=== PATIENT | male | born 1960 ===

== ENCOUNTER → 2020-08-02 07:48 | Outpatient (BNV) | payer MEDICAID, SELFPAY | PROVIDERS: PCP Internal Medicine Geriatric Medicine; Visit Provider Internal Medicine | DX: D64.9 Anemia, unspecified (principal) | CPT/HCPCS: 99213 ==

== ENCOUNTER 2020-11-07 08:31 | Outpatient (REF) | payer MEDICAID, SELFPAY ==
[2020-11-07 10:06] LABS: Alanine Aminotransferase 32 U/L (0-40); Aspartate Amino Transferase 17 U/L (5-37)
== END 2020-11-07 08:32 | disposition home or self-care (01) ==
LOC: HO.LAB 08:31
PROVIDERS: PCP Internal Medicine Geriatric Medicine; Visit Provider Internal Medicine Cardiovascular Disease
DX: E78.49 Other hyperlipidemia (principal)
CPT/HCPCS: 36415; 84450; 84460

== ENCOUNTER 2021-01-27 07:41 | Emergency (ER) | payer MEDICAID, SELFPAY ==
--- NOTE | ~2021-01-27 | XR_ITS ---
EXAMINATION: RIGHT KNEE 3 VIEWS CLINICAL INFORMATION: Right knee pain. COMPARISON: None. TECHNIQUE: AP, lateral, oblique views of the right knee were obtained. FINDINGS: There are no fractures or dislocations. There is no knee joint effusion. There is mild narrowing to the patellofemoral compartment. There is no significant soft tissue swelling. There are diffuse vascular calcifications. XR/XR knee RT 4V IMPRESSION: No acute injury. Mild narrowing to the patellofemoral compartment. Diffuse vascular calcifications.
[2021-01-27 08:51] VITALS: BP 139/90; PULSE 71; RESP 18; TEMP 36.7; O2SAT 97; BMI 31.2
--- NOTE | 2021-01-27 09:03 | ED_ITS ---
HPI - Extremity Injury (Lower) General Chief Complaint: Extremity Injury, Lower Stated Complaint: R KNEE PAIN Time Seen by Provider: 01/27/21 09:02 Source: patient Mode of arrival: ambulatory Limitations: no limitations History of Present Illness HPI Narrative: 61 yo male here with right knee pain for the last month the pain has been increasing with no new injury or trauma. He previously had injury with skiing and when she twisted the knee. He feels like at times the knee gives out on him. It is worsened with stairs and weight-bearing. Using his knee brace with continued symptoms. No fevers, chills, erythema, warmth. No calf pain or swelling. Related Data Home Medications Medication Instructions Recorded Confirmed amlodipine 5 mg PO DAILY 08/02/20 08/02/20 aspirin 81 mg PO DAILY 08/02/20 08/02/20 atorvastatin 80 mg PO BEDTIME 08/02/20 08/02/20 cilostazol [Pletal] 50 mg PO BID 08/02/20 08/02/20 losartan 100 mg PO DAILY 08/02/20 08/02/20 Allergies Allergy/AdvReac Type Severity Reaction Status Date / Time No Known Allergies Allergy Verified 01/27/21 08:53 [No Known Allergies*] Review of Systems Review of Systems: Yes all other systems are reviewed and are negative Constitutional: Constitutional: Reports no additional constitutional complaints, Denies body ache(s), Denies chills, Denies fever(s), Denies headache(s) and Denies weakness Eyes: Eyes: Reports no additional eye complaints and Denies change in vision ENT: Reports system reviewed and no additional complaints, except as documented, Denies dizziness, Denies headache(s), Denies nasal congestion, Denies nasal discharge and Denies neck pain Cardiovascular: Cardiovascular: Reports no additional cardiovascular complaints, Denies chest pain, Denies leg edema and Denies dyspnea Respiratory: Respiratory: Reports no additional respiratory complaints, Denies cough and Denies dyspnea Gastrointestinal: Gastrointestinal: Reports no additional gastrointestinal complaints, Denies abdominal pain, Denies diarrhea, Denies nausea and Denies vomiting Genitourinary: Genitourinary: Denies urinary incontinence Musculoskeletal: Musculoskeletal: Reports no additional musculoskeletal complaints, Denies back pain, Reports arthralgias, Denies joint swelling, Denies neck pain, Denies numbness and Denies tingling Integumentary/Breasts: Skin/Breast: Reports system reviewed and no additional complaints, except as docu and Denies rash Neurologic: Reports system reviewed and no additional complaints, except as documented, Denies Abnormal speech present, Denies dizziness, Denies headache(s), Denies numbness, Denies tingling and Denies weakness PMF Past Medical History Attestation statement: The following information was validated with the patient. Source: old records reviewed and nursing notes reviewed Medical History AAA (abdominal aortic aneurysm) Anemia Cerebral aneurysm Essential hypertension Hyperlipidemia 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) Tubulovillous adenoma Family History Family History Maternal Grandmother Cancer Father Bladder cancer Social History Social History Alcohol intake: current Alcohol intake frequency: a few times a month Smoking Status: Former smoker Tobacco Type: Cigar and Cigarette Years Smoked: 20 Physical Exam Vital Signs: Vital Signs: Last Vital Signs Temp 98.0 F 01/27/21 08:51 Pulse 71 01/27/21 08:51 Resp 18 01/27/21 08:51 BP 139/90 H 01/27/21 08:51 Pulse Ox 97 01/27/21 08:51 Body Mass Index 31.2 Const: General: cooperative, healthy appearing, comfortable and no acute distress Orientation/consciousness: patient oriented x3 Limitations: no limitations HENMT: Head: Yes normal to inspection Ears: hearing grossly normal bilaterally General nose exam: Normal external nose present Face and sinus: Yes normal facial exam Mouth: Normal oral and palatal mucosa present Throat: Yes posterior oropharynx normal Eyes: General: appearance normal, both eyes and all related structures Pupils: Equal, round and reactive pupils present Neck: Neck: Yes normal visual inspection Chest: Chest palpation & inspection: normal inspection of the chest Resp: Effort & Inspection: normal respiratory effort Auscultation: clear to auscultation bilaterally Cardio: Rate: regular rate Rhythm: regular rhythm Peripheral pulses: Peripheral pulses 2+ throughout GI: Inspection: Yes normal to inspection Palpation (GI): Soft to palpation and nontender Auscultation: normal bowel sounds Back/Spine/Pelvis: Thoracic/Lumbar Spine: thoracic and lumbar spine normal to inspection Skin: General skin exam: no rashes or lesions noted Neuro: General: patient oriented x3, no focal motor deficits and normal sensation to monofilament Cranial nerves: Yes Equal, round and reactive pupils present Cognition (Neuro): normal cognition Speech: No Abnormal speech present Gait exam (Neuro): Normal gait present Motor exam (neuro): 5/5 motor strength present throughout Extrem: Other: Tenderness over the medial joint line and medial ligament of the right knee. There is no swelling, deformity. There is no redness or warmth. There is some ligamental laxity noted on exam. General: Yes normal to inspection, Yes no pedal edema and Yes no calf tenderness Course Course Course Narrative: Right knee pain for 1 month in the setting of a previous twisting injury. On exam has tenderness over the medial ligament joint line with some laxity. Likely ligamental injury. Doing supportive care with continued symptoms. At this point will refer to orthopedics for further eval uation. x-ray shows no bony abnormality. Reviewed worrisome signs and symptoms and when to return to the emergency department. Comfortable discharge home. MDM - Extremity Injury (Lower) Medical Records Attestation: I reviewed the patient's medical records. Lab Data Attestation: I reviewed the patient's lab results. Imaging Data knee x-ray right : Attestation: I personally reviewed and interpreted this imaging study as follows: Radiologist's impression: EXAMINATION: RIGHT KNEE 3 VIEWS CLINICAL INFORMATION: Right knee pain. COMPARISON: None. TECHNIQUE: AP, lateral, oblique views of the right knee were obtained. FINDINGS: There are no fractures or dislocations. There is no knee joint effusion. There is mild narrowing to the patellofemoral compartment. There is no significant soft tissue swelling. There are diffuse vascular calcifications. XR/XR knee RT 4V IMPRESSION: No acute injury. Mild narrowing to the patellofemoral compartment. Diffuse vascular calcifications. Discharge Plan Discharge Clinical Impression: Knee pain, right Qualifiers: Chronicity: acute Qualified Code(s): M25.561 - Pain in right knee Patient Disposition: Home, Self-Care Instructions: Knee Pain (ED) Additional Instructions: Ice, rest, elevation as discussed You have some laxity along the medial joint line as well as tenderness, you likely have a sprain of the medial ligament Prescriptions: No Action atorvastatin 80 mg Tablet 80 mg PO BEDTIME RF: 0 cilostazol [Pletal] 50 mg Tablet 50 mg PO BID RF: 0 amlodipine 5 mg Tablet 5 mg PO DAILY RF: 0 aspirin 81 mg Tablet 81 mg PO DAILY RF: 0 losartan 100 mg Tablet 100 mg PO DAILY RF: 0 Referrals: Ashok Hearn MD [Physician] - 2 days Interventions: ED Discharge Assessment Last Done: 01/27/21 09:34 Discharge Date/Time: 01/27/21 09:34
== END 2021-01-27 09:34 | disposition home or self-care (01) ==
PROVIDERS: Emergency Provider Emergency Medicine; PCP Internal Medicine Geriatric Medicine
DX: M25.561 Pain in right knee (principal); E78.5 Hyperlipidemia, unspecified; I10 Essential (primary) hypertension; Z79.899 Other long term (current) drug therapy; Z79.02 Long term (current) use of antithrombotics/antiplatelets
CPT/HCPCS: 73564; 99283

== ENCOUNTER 2021-01-30 07:34 | Outpatient (REF) | payer MEDICAID, SELFPAY ==
--- NOTE | ~2021-01-30 | XR_ITS ---
EXAMINATION: XR KNEE, BILATERAL XR KNEE, RIGHT CLINICAL INFORMATION: Pain. COMPARISON: 01/27/2021 TECHNIQUE: AP bilateral knees one view. Right knee 2 views. FINDINGS: RIGHT KNEE: Mild medial compartment joint space narrowing. Mild narrowing of the patellofemoral compartment with marginal osteophytes. No fracture or dislocation. No effusion. 0.7 cm loose body posteriorly. Extensive vascular calcification. LEFT KNEE: Mild medial compartment arthritis. Marginal spurring in the lateral compartment. Extensive vascular calcification. XR/XR knee standing BI IMPRESSION: RIGHT KNEE: No acute findings. Mild medial and patellofemoral compartment arthritis. Small loose body. LEFT KNEE: Mild arthritis as above.
--- NOTE | ~2021-01-30 | XR_ITS ---
EXAMINATION: XR KNEE, BILATERAL XR KNEE, RIGHT CLINICAL INFORMATION: Pain. COMPARISON: 01/27/2021 TECHNIQUE: AP bilateral knees one view. Right knee 2 views. FINDINGS: RIGHT KNEE: Mild medial compartment joint space narrowing. Mild narrowing of the patellofemoral compartment with marginal osteophytes. No fracture or dislocation. No effusion. 0.7 cm loose body posteriorly. Extensive vascular calcification. LEFT KNEE: Mild medial compartment arthritis. Marginal spurring in the lateral compartment. Extensive vascular calcification. XR/XR knee RT 2V IMPRESSION: RIGHT KNEE: No acute findings. Mild medial and patellofemoral compartment arthritis. Small loose body. LEFT KNEE: Mild arthritis as above.
== END 2021-01-30 07:35 | disposition home or self-care (01) ==
LOC: HO.HOSX 07:34
PROVIDERS: Visit Provider Physician Assistant
DX: M25.562 Pain in left knee (principal); M17.11 Unilateral primary osteoarthritis, right knee; Z87.891 Personal history of nicotine dependence
CPT/HCPCS: 73560; 73565; 99202

== ENCOUNTER → 2021-11-09 09:12 | Outpatient (BNVA) | payer MEDICAID, SELFPAY | PROVIDERS: PCP Internal Medicine Geriatric Medicine; Referring Provider Internal Medicine Geriatric Medicine; Visit Provider Nurse Practitioner | DX: D12.6 Benign neoplasm of colon, unspecified (principal) | CPT/HCPCS: 99202 ==

== ENCOUNTER 2022-02-15 08:08 | Day surgery (SDC) | payer MEDICAID, SELFPAY ==
[2022-02-09 09:33] VITALS: BMI 34.7
--- NOTE | 2022-02-14 10:24 | P.CONAN_ITS ---
Documented by User: Donya Perez NP 02/14/22 10:29 HPI - Anesthesia Eval Consult details Narrative: 62yo M for Colonoscopy PMFSH Active Problems Active Problems: All Active Problems (Updated 11/09/21 @ 11:43 by ANNA Sanchez) Raynauds disease (Acute) Peripheral vascular disease (Acute) Carotid stenosis, right (Acute) Tubulovillous adenoma of colon (Acute) Thoracic aortic aneurysm (Acute) Normocytic anemia (Chronic) Osteoarthritis of right knee (Acute) Past Medical History Medical History AAA (abdominal aortic aneurysm) Anemia Carotid stenosis, right Cerebral aneurysm Essential hypertension History of pyloric stenosis as a child Hyperlipidemia 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) Peripheral vascular disease Raynauds disease Tubulovillous adenoma Family History Family History Maternal Grandmother Cancer Father Bladder cancer Surgical History Surgical History History of colonoscopy Hx of abdominal surgery Social History Social History Household Members: Family [facility] Alcohol intake: current Alcohol intake frequency: a few times a month Patient Tobacco Use Status: Former Tobacco user Quit Date: 1999 Tobacco use type: Cigarette Cigarette Packs Per Day: 1 Years Smoked: 20 Use of substances other than those prescribed or required for medical reasons: No Advance Directives: No Advance Directives Information Provided: Yes Current occupational status: retired Current occupation: [employer] Allergies Allergy/AdvReac Type Severity Reaction Status Date / Time No Known Allergies Allergy Verified 11/09/21 09:23 [No Known Allergies*] Home Medications Medication Instructions Recorded Confirmed Last Taken Type amlodipine 5 mg tablet 5 mg PO DAILY 08/02/20 10/24/21 02/15/22 History 5 mg aspirin 81 mg tablet 81 mg PO DAILY 08/02/20 10/24/21 Unknown History atorvastatin 80 mg tablet 80 mg PO BEDTIME 08/02/20 10/24/21 Unknown History cilostazol 50 mg tablet 50 mg PO BID 08/02/20 10/24/21 Unknown History ascorbic acid (vitamin C) 500 mg 500 mg PO DAILY 08/02/21 10/24/21 Unknown History tablet (Vitamin C) coenzyme [id number] E 100 mg-100 1 cap PO DAILY 08/02/21 10/24/21 Unknown History unit capsule tamsulosin 0.4 mg capsule 0.4 mg PO DAILY 11/09/21 Unknown History valsartan 80 mg tablet 80 mg PO DAILY 11/09/21 Unknown History Exam Exam Date and Time: February 14, 2022 1024 Height,Weight and Vital Signs: Height 6 ft 3 in Weight 126.099 kg Pertinent Lab Results Pertinent Lab Results: Laboratory Tests 10/24/21 15:01 WBC 5.4 Hgb 12.2 L Hct 36.7 L Plt Count 239 Assessment and Plan Assessment Anesthesia Assessment: Chart Reviewed Documented by User: Mario Cervantes MD 02/15/22 10:50 [facility] Past Medical History Medical History AAA (abdominal aortic aneurysm) Anemia Carotid stenosis, right Cerebral aneurysm Essential hypertension History of pyloric stenosis as a child Hyperlipidemia 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) Peripheral vascular disease Raynauds disease Tubulovillous adenoma Family History Family History Maternal Grandmother Cancer Father Bladder cancer Family history of problems with anesthesia: No Surgical History Surgical History History of colonoscopy Hx of abdominal surgery History of Problems with Anesthesia: No Social History Social History Household Members: Family [facility] Alcohol intake: current Alcohol intake frequency: a few times a month Patient Tobacco Use Status: Former Tobacco user Quit Date: 1999 Tobacco use type: Cigarette Cigarette Packs Per Day: 1 Years Smoked: 20 Use of substances other than those prescribed or required for medical reasons: No Advance Directives: No Advance Directives Information Provided: Yes Current occupational status: retired Current occupation: [employer] Allergies Allergy/AdvReac Type Severity Reaction Status Date / Time No Known Allergies Allergy Verified 11/09/21 09:23 [No Known Allergies*] Home Medications Medication Instructions Recorded Confirmed Last Taken Type amlodipine 5 mg tablet 5 mg PO DAILY 08/02/20 10/24/21 02/15/22 History 5 mg aspirin 81 mg tablet 81 mg PO DAILY 08/02/20 10/24/21 Unknown History atorvastatin 80 mg tablet 80 mg PO BEDTIME 08/02/20 10/24/21 Unknown History cilostazol 50 mg tablet 50 mg PO BID 08/02/20 10/24/21 Unknown History ascorbic acid (vitamin C) 500 mg 500 mg PO DAILY 08/02/21 10/24/21 Unknown History tablet (Vitamin C) coenzyme [id number] E 100 mg-100 1 cap PO DAILY 08/02/21 10/24/21 Unknown History unit capsule tamsulosin 0.4 mg capsule 0.4 mg PO DAILY 11/09/21 Unknown History valsartan 80 mg tablet 80 mg PO DAILY 11/09/21 Unknown History Exam Airway Mallampati Class: II TM Dist: >3cm Neck ROM: Full Loose/Missing/Broken Teeth: Yes Assessment and Plan Assessment Anesthesia Assessment: Anesthesia Plan Discussed Final Anesthetic Review Family History of Problems with Anesthesia: No History of Problems with Anesthesia: No NPO: Yes ASA Class: III Final Preanesthetic Review: No Changes in Pt Med Stat, Meds/Allgs Chart Reviewed, Consent Obtained/Reviewed and Anes Risks/Benef Reviewed Patient Risk: Intermediate Procedure Risk: Low Anesthetic Plan Anesthetic Plan: MAC: Disposition: Standard PACU
[2022-02-15 08:19] VITALS: BP 119/80; PULSE 79; RESP 18; TEMP 36.6; O2SAT 96; BMI 34.9
[2022-02-15] MEDS: Lactated Ringers 1,000 ML 100 ML IVCONT (08:38)
--- NOTE | 2022-02-15 09:03 | MHC.SHP ---
Pre-Procedural Eval Section A Date of Service: 02/15/22 Section B Chief Complaint: Benign neoplasm of colon Details of Present Illness: hx of polyp Relevant Family History (Specify if Yes): No Relevant Social History: None (ex smoker) Present Medications: see Short Stay Collaborative assessment Medical History: Significant History (AAA (abdominal aortic aneurysm) Anemia Carotid stenosis, right Cerebral aneurysm Essential hypertension History of pyloric stenosis as a child Hyperlipidemia 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) Peripheral vascular disease Raynauds disease Tubulovillous adenoma) History of Previous Operations: Relevant previous surgery/procedure and date(s) (History of colonoscopy Hx of abdominal surgery) Allergies: Allergies Allergy/AdvReac Type Severity Reaction Status Date / Time No Known Allergies Allergy Verified 11/09/21 09:23 [No Known Allergies*] Review of Systems Sugical H&P ROS: Negative: Constitution, Cardiovascular, Respiratory, Neurological, Psychiatric, Hem-Onc, Allergic/Immunologic, Gastrointestinal, Genitourinary, Musculoskeletal, Integumentary, Endocrine and Eyes/Ears/Nose/Throat Exam Surgical H&P Exam: Normal: HEENT, Normal: Heart, Normal: Lungs, Normal: Extremities, Normal: Abdomen, Normal: Skin and Normal: Neurological Plan Diagnosis/Plan: Unchanged I have reviewed the history and physical and performed a pertinent physical examination on my patient. No changes have occurred unless specified.
--- NOTE | 2022-02-15 09:47 | P.OP_ITS ---
Operative Note Operative Note Date of Service: 02/15/22 Narrative: Operative Information Procedure Description: Colonoscopy Indication: hx of polyp, colon screening Anesthesia: MAC COLONOSCOPY Instrument: Olympus variable stiffness adult scope 190L Colonoscopy Monitoring: Vital signs and clinical assessment, continuous EKG monitoring, Pulse oximetry, Carbon Dioxide monitoring and blood pressure monitoring were done throughout the procedure. Colon withdrawal time was 20 minutes. Procedure: The patient was placed in the left lateral decubitis position and pre-procedure medications were administered. After a digital rectal examination of the ano-rectum, the video colonoscope was inserted into the rectum and advanced through the colon to the cecum/TI. The colonoscope was slowly withdrawn in a retrograde panoramic fashion and the colon mucosa was carefully examined including a retroflexed view of the rectum. Findings and interventions are described below. Procedure Difficulty: easy Findings: Terminal Ileum-normal Cecum:normal Ascending Colon: 15 mm laterally spreading granular polpyoid lesion (Juil 0- IIa) noted, injected with ORISE and then removed with hot snare with 3 clips applied to close defect. Polyp retrieved with net. Transverse Colon -normal Descending Colon:normal Sigmoid Colon: normal Rectum: Retroflexion with small internal hemorrhoids, grade I Anorectum - normal Colon preparation: [place] Bowel Preparation Scale Right colon; 2 Transverse colon: 2 Left colon; 2 (0 = Unprepared colon segment with mucosa not seen due to solid stool that cannot be cleared. 1 = Portion of mucosa of the colon segment seen, but other areas of the colon segment not well seen due to staining, residual stool and/or opaque liquid. 2 = Minor amount of residual staining, small fragments of stool and/or opaque liquid, but mucosa of colon segment seen well. 3 = Entire mucosa of colon segment seen well with no residual staining, small fragments of stool or opaque liquid) Impression and Post Procedure Diagnosis: polyp internal hemorrhoids Plan: High fiber diet leaflet Avoid straining at stool, epsom salts and sitz bath, anusol supps or cream Repeat Colonoscopy in 2-3 years or earlier if clinically indicated Above findings were reviewed with the patient and relevant handouts were provided if indicated.
--- NOTE | 2022-02-15 09:47 | PM.OP ---
Brief Operative Note Date of Service: 02/15/22 Post-op diagnosis: same Procedure: see op note Surgeon: Ning Xiao MD Anesthesia: MAC Was an Mobile Crane Operator used for this Procedure?: No Estimated blood loss (mL): 0 Condition: stable Disposition: PACU
[2022-02-15 10:33] VITALS: BP 97/49; PULSE 79; RESP 16; TEMP 36.6; O2SAT 90
[2022-02-15 10:48] VITALS: BP 103/74; PULSE 70; RESP 16; TEMP 36.3; O2SAT 95
== END 2022-02-15 11:19 | disposition home or self-care (01) ==
PROVIDERS: PCP Internal Medicine Geriatric Medicine; Visit Provider Internal Medicine Gastroenterology
PROC: 0DJD8ZZ Inspection of Lower Intestinal Tract, Via Natural or Artificial Opening Endoscopic (ICD-10-PCS; CPT 45378; principal; 2022-02-15 09:30)
DX: Z12.11 Encounter for screening for malignant neoplasm of colon (principal); Z86.010 Personal history of colon polyps; D12.2 Benign neoplasm of ascending colon; K64.0 First degree hemorrhoids; I71.2 Thoracic aortic aneurysm, without rupture; I65.21 Occlusion and stenosis of right carotid artery; I10 Essential (primary) hypertension; I73.00 Raynaud's syndrome without gangrene; E78.00 Pure hypercholesterolemia, unspecified; Z87.891 Personal history of nicotine dependence; Z86.73 Personal history of transient ischemic attack (TIA), and cerebral infarction without residual deficits
CPT/HCPCS: 45385; 45381; 88305; J2250

== ENCOUNTER → 2022-03-01 08:48 | Outpatient (BNVA) | payer MEDICAID, SELFPAY | PROVIDERS: PCP Internal Medicine Geriatric Medicine; Referring Provider Internal Medicine Geriatric Medicine; Visit Provider Nurse Practitioner | DX: Z13.89 Encounter for screening for other disorder (principal) ==

== ENCOUNTER 2023-01-23 13:08 | Outpatient (REF) | payer MEDICAID, SELFPAY ==
[2023-01-17 08:09] VITALS: BP 108/70; BP 112/76; BP 118/70; BMI 34.0
[2023-01-23 15:03] LABS: Blood Urea Nitrogen 14 mg/dL (9-16); Estimated Glomerular Filt Rate > 60
== END 2023-01-23 13:09 | disposition home or self-care (01) ==
LOC: HO.LAB 13:08
PROVIDERS: PCP Internal Medicine Geriatric Medicine; Visit Provider Psychiatry & Neurology Neurology
DX: I63.9 Cerebral infarction, unspecified (principal)
CPT/HCPCS: 36415; 82565; 84520

== ENCOUNTER 2023-03-20 07:32 | Outpatient (REF) | payer MEDICAID, SELFPAY ==
[2023-01-17 08:09] VITALS: BP 108/70; BP 112/76; BP 118/70; BMI 34.0
--- NOTE | ~2023-03-20 | CT_ITS ---
EXAMINATION: CT ANGIOGRAM BRAIN WITH CONTRAST CLINICAL INFORMATION: Cerebral aneurysm. COMPARISON: Head CTA 03/19/2020. TECHNIQUE: Test bolus sequences followed by intravenous administration 75 mL of Omnipaque 350. Helical imaging was performed in the axial plane from the skull base to the skull vertex. Delayed postcontrast imaging of the head was also performed. The data was processed at the radiographic technologist workstation for generation of MIP sequences. Angled MIPs and volume rendered reformatted images were also generated at an offline 3D workstation. This CT examination was performed using dose optimization techniques as appropriate, variously including the following: *Automated exposure control *Adjustment of mA and/or kV according to patient size (this includes techniques or standardized protocols for targeted exams where dose is matched to indication/reason for exam; i.e. extremities or head) *Use of iterative reconstruction technique DLP: 2582 mGy-cm FINDINGS: Brain: There is a large area of chronic infarction within the right parietal and temporal lobes, also seen previously. There is a small chronic lacunar infarct within the right basal ganglia. There is a small chronic lacunar infarct within the right cerebellum, new from prior. A chronic lacunar infarcts in the left inferior cerebellum is again demonstrated. There is no mass effect or extra-axial collection. No abnormal enhancement is seen. The dural venous sinuses appear normally opacified. The extracranial structures are within normal limits. Head CTA: There is redemonstration of chronic occlusion of the right internal carotid artery in the neck but with reconstitution at the carotid siphon. There is a 2 mm medially projecting aneurysm from the communicating segment of the left internal carotid artery without change compared with 2019. Atheromatous changes are noted at both carotid siphons resulting in moderate stenosis in the left without change. The anterior and posterior circulations appear patent without new or progressive stenosis. No new aneurysm is seen. CT/CT angio head IMPRESSION: 1. No acute intracranial abnormality. Chronic infarct in the right parietal and temporal lobes. Chronic lacunar infarcts in the right basal ganglia and left cerebellum. Small chronic lacunar infarct in the right cerebellum, new from prior. 2. Chronic occlusion of the right internal carotid artery in the neck with reconstitution at the carotid siphon. Stable 2 mm aneurysm from the communicating segment of the left internal carotid artery. No new aneurysm. No new or progressive stenosis.
[2023-03-20] MEDS: iohexoL 350 MG/ML 100 ML INFUS..BTL IV (10:06)
[2023-03-22 06:57] LABS: Creatinine POC 0.6 mg/dL (0.5-1.4); GFR POC > 60
== END 2023-03-20 07:33 | disposition home or self-care (01) ==
LOC: HO.CT 07:32
PROVIDERS: PCP Internal Medicine Geriatric Medicine; Visit Provider Psychiatry & Neurology Neurology
DX: I67.1 Cerebral aneurysm, nonruptured (principal)
CPT/HCPCS: 70496; 82565; Q9967

== ENCOUNTER 2023-04-11 07:33 | Outpatient (REF) | payer MEDICAID, SELFPAY ==
[2023-01-17 08:09] VITALS: BP 108/70; BP 112/76; BP 118/70; BMI 34.0
[2023-04-11 07:43] LABS: MANUAL DIFF FLAG NO
[2023-04-11 08:15] LABS: Basophils Absolute Auto 0.1 X10*3/uL (0.0-0.2); Basophils Percent Auto 0.8 % (0-2); Eosinophils Absolute Auto 0.3 X10*3/uL (0.0-0.4); Eosinophils Percent Auto 4.4 % (0-4); Hematocrit 40.7 % (42.0-52.0); Hemoglobin 13.6 g/dl (14.0-18.0); Imm Gran Abs Auto 0.02 X10*3/uL (0.00-0.03); Imm Gran Pct Auto 0.3 % (0.0-0.4); Lymphocytes Absolute Auto 2.4 X10*3/uL (1.2-4.9); Lymphocytes Percent Auto 39.3 % (20-40); Mean Corpuscular HGB Conc 33.4 g/dl (31.0-36.0); Mean Corpuscular Hemoglobin 30.6 pg (27.0-33.0); Mean Corpuscular Volume 91.7 fL (80.0-98.0); Mean Platelet Volume 11.2 fL (9.4-12.4); Monocytes Absolute Auto 0.8 X10*3/uL (0.1-1.2); Monocytes Percent Auto 13.5 % (2-11); Neutrophils Absolute Auto 2.6 x10*3/uL (2.0-8.3); Neutrophils Percent Auto 41.7 % (45-73); Platelet Count 261 X10*3/uL (160-400); Red Blood Count 4.44 X10*6/uL (4.60-5.80); Red Cell Distribution Width 14.1 % (11.0-16.0); White Blood Count 6.1 X10*3/uL (4.8-10.8)
[2023-04-11 08:50] LABS: Alanine Aminotransferase 25 U/L (0-40); Albumin Level 4.1 g/dL (3.5-5.0); Alkaline Phosphatase 101 U/L (39-117); Anion Gap 14 (12-20); Aspartate Amino Transferase 17 U/L (5-37); Bilirubin Total 0.9 mg/dL (0.0-1.0); Blood Urea Nitrogen 17 mg/dL (9-16); Calcium 9.6 mg/dL (8.4-10.2); Carbon Dioxide 27 mmol/L (22-29); Chloride 105 mmol/L (96-108); Estimated Glomerular Filt Rate > 60; Glucose Random 101 mg/dL (60-115); Potassium 4.6 mmol/L (3.3-5.1); Sodium 141 mmol/L (135-145); Total Protein 7.1 g/dL (6.5-8.0); Uric Acid 8.4 mg/dL (3.4-7.0)
== END 2023-04-11 07:34 | disposition home or self-care (01) ==
LOC: HO.LAB 07:33
PROVIDERS: PCP Internal Medicine Geriatric Medicine; Visit Provider Internal Medicine Geriatric Medicine
DX: M1A.9XX0 Chronic gout, unspecified, without tophus (tophi) (principal)
CPT/HCPCS: 36415; 80053; 84550; 85025

== ENCOUNTER 2023-08-08 08:46 | Outpatient (REF) | payer MEDICAID, SELFPAY ==
[2023-01-17 08:09] VITALS: BP 108/70; BP 112/76; BP 118/70; BMI 34.0
[2023-08-08 09:07] LABS: MANUAL DIFF FLAG NO
[2023-08-08 09:32] LABS: Basophils Percent Auto 0.5 % (0-2); Eosinophils Absolute Auto 0.1 X10*3/uL (0.0-0.4); Eosinophils Percent Auto 1.2 % (0-4); Hemoglobin 13.2 g/dl (14.0-18.0); Imm Gran Abs Auto 0.02 X10*3/uL (0.00-0.03); Imm Gran Pct Auto 0.3 % (0.0-0.4); Lymphocytes Absolute Auto 2.8 X10*3/uL (1.2-4.9); Lymphocytes Percent Auto 37.3 % (20-40); Mean Corpuscular Hemoglobin 31.5 pg (27.0-33.0); Mean Corpuscular Volume 95.5 fL (80.0-98.0); Mean Platelet Volume 11.1 fL (9.4-12.4); Monocytes Absolute Auto 0.8 X10*3/uL (0.1-1.2); Monocytes Percent Auto 11.4 % (2-11); Neutrophils Absolute Auto 3.6 x10*3/uL (2.0-8.3); Neutrophils Percent Auto 49.3 % (45-73); Platelet Count 241 X10*3/uL (160-400); Red Blood Count 4.19 X10*6/uL (4.60-5.80); White Blood Count 7.4 X10*3/uL (4.8-10.8)
[2023-08-08 10:07] LABS: Alanine Aminotransferase 32 U/L (0-40); Alkaline Phosphatase 104 U/L (39-117); Anion Gap 15 (12-20); Aspartate Amino Transferase 21 U/L (5-37); Bilirubin Total 0.5 mg/dL (0.0-1.0); Blood Urea Nitrogen 10 mg/dL (9-16); Calcium 9.2 mg/dL (8.4-10.2); Carbon Dioxide 26 mmol/L (22-29); Chloride 107 mmol/L (96-108); Cholesterol 153 mg/dL (<200); Estimated Glomerular Filt Rate > 60; Glucose Random 93 mg/dL (60-115); HDL Cholesterol 72 mg/dL (>40); LDL Cholesterol Calculated 69 mg/dL (<100); Potassium 3.8 mmol/L (3.3-5.1); Sodium 144 mmol/L (135-145); Total Protein 6.9 g/dL (6.5-8.0); Triglycerides 60 mg/dL (<150); Uric Acid 6.2 mg/dL (3.4-7.0)
== END 2023-08-08 08:47 | disposition home or self-care (01) ==
LOC: HO.LAB 08:46
PROVIDERS: PCP Internal Medicine Geriatric Medicine; Visit Provider Internal Medicine Geriatric Medicine
DX: I25.10 Atherosclerotic heart disease of native coronary artery without angina pectoris (principal); M10.9 Gout, unspecified; Z95.828 Presence of other vascular implants and grafts
CPT/HCPCS: 36415; 80053; 80061; 84550; 85025

== ENCOUNTER 2023-10-17 13:50 | Outpatient (REF) | payer MEDICAID, SELFPAY ==
[2023-01-17 08:09] VITALS: BP 108/70; BP 112/76; BP 118/70; BMI 34.0
--- NOTE | ~2023-10-17 | CT_ITS ---
EXAMINATION: CT CHEST WITHOUT CONTRAST CLINICAL INFORMATION: Ascending aortic aneurysm. COMPARISON: None available. TECHNIQUE: Multidetector volumetric CT imaging of the chest was done. Axial MIP volume rendering provided. Sagittal and coronal reformatted images were obtained. This CT examination was performed using dose optimization techniques as appropriate, variously including the following: *Automated exposure control *Adjustment of mA and/or kV according to patient size (this includes techniques or standardized protocols for targeted exams where dose is matched to indication/reason for exam; i.e. extremities or head) *Use of iterative reconstruction technique DLP: 257 mGy-cm FINDINGS: LUNGS: 3 mm right beatris fissural nodule on image 343 of series 5. No focal consolidation. Central airways are patent. 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 No bulky axillary, mediastinal or hilar lymphadenopathy. Status post aortic root repair. Ascending thoracic aorta measures 4.3 x 4.3 cm in transverse dimension. Heart size is normal. No pericardial effusion. CORONARY ARTERY CALCIFICATION: Severe. PLEURA: There is no pleural effusion. No pleural mass or thickening. UPPER ABDOMEN: No adrenal mass. OSSEOUS STRUCTURES: Prior median sternotomy. Possible T5 vertebral body hemangioma. CT/CT chest wo IV con IMPRESSION: Ascending aortic aneurysm measuring 4.3 x 4.3 cm. No prior studies available for comparison.
== END 2023-10-17 13:51 | disposition home or self-care (01) ==
LOC: HO.CT 13:50
PROVIDERS: PCP Internal Medicine Geriatric Medicine; Visit Provider Thoracic Surgery (Cardiothoracic Vascular Surgery)
DX: I72.1 Aneurysm of artery of upper extremity (principal)
CPT/HCPCS: 71250

== ENCOUNTER 2023-11-11 11:08 | Outpatient (REF) | payer MEDICAID, SELFPAY ==
[2023-01-17 08:09] VITALS: BP 108/70; BP 112/76; BP 118/70; BMI 34.0
[2023-11-11 12:46] LABS: Prostate Specific Antigen 1.01 ng/mL (<0.05-4.0)
== END 2023-11-11 11:09 | disposition home or self-care (01) ==
LOC: HO.LAB 11:08
PROVIDERS: PCP Internal Medicine Geriatric Medicine; Visit Provider Internal Medicine Geriatric Medicine
DX: Z12.5 Encounter for screening for malignant neoplasm of prostate (principal)
CPT/HCPCS: 36415; 84153

== ENCOUNTER 2024-04-07 08:12 | Outpatient (REF) | payer MEDICAID, SELFPAY ==
[2023-01-17 08:09] VITALS: BP 108/70; BP 112/76; BP 118/70; BMI 34.0
[2024-04-07 10:02] LABS: Blood Urea Nitrogen 12 mg/dL (9-16); Estimated Glomerular Filt Rate > 60
== END 2024-04-07 08:13 | disposition home or self-care (01) ==
LOC: HO.LAB 08:12
PROVIDERS: PCP Internal Medicine Geriatric Medicine; Visit Provider Psychiatry & Neurology Neurology
DX: I67.1 Cerebral aneurysm, nonruptured (principal); I63.9 Cerebral infarction, unspecified
CPT/HCPCS: 36415; 82565; 84520

== ENCOUNTER 2024-04-16 10:14 | Outpatient (REF) | payer MEDICAID, SELFPAY ==
[2023-01-17 08:09] VITALS: BP 108/70; BP 112/76; BP 118/70; BMI 34.0
--- NOTE | ~2024-04-16 | CT_ITS ---
EXAMINATION: CT ANGIOGRAM BRAIN, HEAD CLINICAL INFORMATION: Cerebral aneurysm COMPARISON: CTA head and neck on 03/20/2023 TECHNIQUE: Test bolus sequences followed by intravenous administration 75 mL of Omnipaque 350 intravenous contrast. Helical imaging was performed in the axial plane from the skull base to the vertex. Delayed postcontrast imaging of the head was also performed. The data was processed at the neurodiagnostic technologist workstation for generation of MIP sequences. Three-dimensional volume rendered reformatted images were also generated at an offline 3-D workstation. The degree of stenosis determined by NASCET criteria. This CT examination was performed using dose optimization techniques as appropriate, variously including the following: *Automated exposure control *Adjustment of mA and/or kV according to patient size (this includes techniques or standardized protocols for targeted exams where dose is matched to indication/reason for exam; i.e. extremities or head) *Use of iterative reconstruction technique DLP: 2641 mGy-cm FINDINGS: BRAIN: No acute intracranial hemorrhage or infarct. Encephalomalacic changes in the right parietotemporal lobe and right cerebellum. No midline shift or hydrocephalus. No acute extra-axial fluid collections. The aorta structures are unremarkable. No orbital pathology. Mucosal thickening predominantly in the maxillary sinuses. The mastoid air cells are clear. Atherosclerotic calcifications of the bilateral carotids siphons and visualized intracranial vertebral arteries. CTA HEAD: Moderate atherosclerotic calcifications of the bilateral carotid siphons. Anterior circulation: Redemonstration of complete occlusion of the visualized segment of the right cervical internal carotid artery, extending through the petrous and cavernous ICA with reconstitution distally from the clinoid ICA. The left petrous, cavernous, supraclinoid ICA segments are patent. The major branches of the anterior and middle cerebral arteries as well as the anterior communicating arteries are patent. Unchanged 2 mm aneurysm from the communicating segment of the left ICA which projects posteriorly and medially. Posterior circulation: The intracranial vertebral arteries are patent. The basilar artery is normal in caliber and course. The posterior cerebral and superior cerebellar arteries arise normally from the basilar summit. No aneurysm. On delayed imaging, the venous structures demonstrate normal contrast opacification. No filling defect. No abnormal intraparenchymal enhancement. CT/CT angio head IMPRESSION: -No acute intracranial hemorrhage or infarct. -Unchanged 2 mm aneurysm from the communicating segment of the left ICA. -Unchanged complete occlusion of the visualized segment of the right internal carotid artery with reconstitution at clinoid ICA.
[2024-04-16] MEDS: iohexoL 350 MG/ML 100 ML INFUS..BTL 75 ML IV (11:15)
== END 2024-04-16 10:15 | disposition home or self-care (01) ==
LOC: HO.CT 10:14
PROVIDERS: PCP Internal Medicine Geriatric Medicine; Visit Provider Psychiatry & Neurology Neurology
DX: I67.1 Cerebral aneurysm, nonruptured (principal)
CPT/HCPCS: 70496; Q9967

== ENCOUNTER 2024-05-27 09:37 | Outpatient (REF) | payer MEDICAID, SELFPAY ==
[2023-01-17 08:09] VITALS: BP 108/70; BP 112/76; BP 118/70; BMI 34.0
[2024-05-27 11:48] LABS: MANUAL DIFF FLAG NO
[2024-05-27 11:53] LABS: Basophils Percent Auto 0.5 % (0-2); Eosinophils Absolute Auto 0.1 X10*3/uL (0.0-0.4); Eosinophils Percent Auto 2.3 % (0-4); Hematocrit 43.6 % (42.0-52.0); Hemoglobin 14.7 g/dl (14.0-18.0); Imm Gran Abs Auto 0.01 X10*3/uL (0.00-0.03); Imm Gran Pct Auto 0.2 % (0.0-0.4); Lymphocytes Absolute Auto 1.6 X10*3/uL (1.2-4.9); Lymphocytes Percent Auto 27.5 % (20-40); Mean Corpuscular HGB Conc 33.7 g/dl (31.0-36.0); Mean Corpuscular Volume 94.8 fL (80.0-98.0); Mean Platelet Volume 11.7 fL (9.4-12.4); Monocytes Absolute Auto 0.8 X10*3/uL (0.1-1.2); Monocytes Percent Auto 14.2 % (2-11); Neutrophils Absolute Auto 3.1 x10*3/uL (2.0-8.3); Neutrophils Percent Auto 55.3 % (45-73); Platelet Count 225 X10*3/uL (160-400); Red Cell Distribution Width 13.2 % (11.0-16.0); White Blood Count 5.6 X10*3/uL (4.8-10.8)
== END 2024-05-27 09:38 | disposition home or self-care (01) ==
LOC: HO.HHCL 09:37
PROVIDERS: Visit Provider Internal Medicine Geriatric Medicine
DX: I10 Essential (primary) hypertension (principal); M10.00 Idiopathic gout, unspecified site; M70.21 Olecranon bursitis, right elbow; I73.9 Peripheral vascular disease, unspecified
CPT/HCPCS: 36415; 80053; 80061; 84550; 85025

== ENCOUNTER 2024-05-28 10:53 | Outpatient (REF) | payer MEDICAID, SELFPAY ==
[2023-01-17 08:09] VITALS: BP 108/70; BP 112/76; BP 118/70; BMI 34.0
[2024-05-28 12:48] LABS: Alanine Aminotransferase 34 U/L (0-40); Albumin Level 4.1 g/dL (3.5-5.0); Alkaline Phosphatase 112 U/L (39-117); Anion Gap 14 (12-20); Aspartate Amino Transferase 24 U/L (5-37); Bilirubin Total 0.5 mg/dL (0.0-1.0); Blood Urea Nitrogen 10 mg/dL (9-16); Calcium 9.3 mg/dL (8.4-10.2); Carbon Dioxide 30 mmol/L (22-29); Chloride 101 mmol/L (96-108); Cholesterol 133 mg/dL (<200); Estimated Glomerular Filt Rate > 60; Glucose Random 94 mg/dL (60-115); HDL Cholesterol 63 mg/dL (>40); LDL Cholesterol Calculated 58 mg/dL (<100); Potassium 3.5 mmol/L (3.3-5.1); Sodium 141 mmol/L (135-145); Total Protein 7.1 g/dL (6.5-8.0); Triglycerides 62 mg/dL (<150); Uric Acid 6.5 mg/dL (3.4-7.0)
== END 2024-05-28 10:54 | disposition home or self-care (01) ==
LOC: HO.LAB 10:53
PROVIDERS: PCP Internal Medicine Geriatric Medicine; Visit Provider Internal Medicine Geriatric Medicine
DX: I10 Essential (primary) hypertension (principal); M70.21 Olecranon bursitis, right elbow; I73.9 Peripheral vascular disease, unspecified
CPT/HCPCS: 36415; 80053; 80061; 84550

== ENCOUNTER 2024-06-01 10:56 | Outpatient (REF) | payer MEDICAID, SELFPAY ==
[2023-01-17 08:09] VITALS: BP 108/70; BP 112/76; BP 118/70; BMI 34.0
== END 2024-06-01 10:57 | disposition home or self-care (01) ==
LOC: HO.LAB 10:56
PROVIDERS: PCP Internal Medicine Geriatric Medicine; Visit Provider Internal Medicine Geriatric Medicine
DX: Z13.89 Encounter for screening for other disorder (principal)

== ENCOUNTER 2024-06-30 08:57 | Outpatient (AMB) | payer MEDICAID, SELFPAY ==
[2023-01-17 08:09] VITALS: BP 108/70; BP 112/76; BP 118/70; BMI 34.0
--- NOTE | 2024-06-30 09:02 | MHC.OFFVIS ---
Intake Visit Reasons: New Pt - Right elbow pain Intake Note: Ryan is a 64 year old right hand dominant male who presents today as a new patient for a evaluation of his right elbow pain. Patient reports ongoing pain and swelling for 5 weeks. He mentions that he is having a lot of swelling behind his elbow. Patient is having a lot of pain from having a lot of liquid in his elbow. Allergies No Known Allergies [No Known Allergies*] Allergy (Verified 06/30/24 09:05) HPI HPI New Pt - Right elbow pain: Details: 64-year-old right hand dominant male who presents in the office today, as a new patient, for an evaluation of the right elbow pain . The patient was seen by Dr. Menjivar on 05/27/24 when he reported edema on the back of the right elbow. He denied any significant pain or history of trauma. While in the office today, the patient confirms experiencing persistent right elbow pain and edema on the back of his right elbow for the past five weeks. He reports severe pain due to fluid buildup in his right elbow. He has a medical history of idiopathic gout. He has a significant medical history of hypertension and peripheral vascular disease. He is on aspirin 81 mg PO daily. 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) Peripheral vascular disease Raynauds disease Tubulovillous adenoma Surgical History History of colonoscopy Hx of abdominal surgery Family History Maternal Grandmother Cancer Father Bladder cancer Social History Household Members: Family Housing: Condominium Alcohol intake: current Alcohol intake frequency: a few times a month Patient Tobacco Use Status: Former Tobacco user Tobacco use type: Cigarette Cigarette Packs Per Day: 1 Years Smoked: 20 Current occupational status: retired 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 No ecchymosis, or erythema. Moderate edema over the olecranon bursa. No signs of infection. No tenderness to palpation over the olecranon. No tenderness to the medial or lateral epicondyle. NVI. Assessment & Plan Assessment & Plan (1) Olecranon bursitis of right elbow: Code(s): M70.21 - Olecranon bursitis, right elbow Category: Medical Plan Mr. Miguel is a 64-year-old right hand dominant male who presents in the office today, as a new patient, for an evaluation of the right elbow pain . The patient was seen by Dr. Menjivar on 05/27/24 when he reported edema on the back of the right elbow. He denied any significant pain or history of trauma. While in the office today, the patient confirms experiencing persistent right elbow pain and edema on the back of his right elbow for the past five weeks. He reports severe pain due to fluid buildup in his right elbow. He has a medical history of idiopathic gout. He has a significant medical history of hypertension and peripheral vascular disease. He is on aspirin 81 mg PO daily. The patient was placed in an IVETH wrap, off the shelf. He was educated on strict compression and educated that his symptoms could take months to resolve. Follow up will be PRN, or sooner if needed. Patient Instructions: Scribed by Ana Coreas vice president medical affairs, for Ana Rosa John PA-C on 06/30/24 at 9:18 am EST. Coding Level of Care Code New Pt Level 3 (34331) Complex EM visit Add On G2211 Diagnoses Olecranon bursitis of right elbow M70.21
== END 2024-06-30 09:45 | disposition home or self-care (01) ==
PROVIDERS: PCP Internal Medicine Geriatric Medicine; Visit Provider Physician Assistant
DX: M70.21 Olecranon bursitis, right elbow (principal)
CPT/HCPCS: 99203

== ENCOUNTER → 2024-06-30 08:57 | Outpatient (BNVA) | payer MEDICAID, SELFPAY ==
[2023-01-17 08:09] VITALS: BP 108/70; BP 112/76; BP 118/70; BMI 34.0
== END ==
PROVIDERS: PCP Internal Medicine Geriatric Medicine; Visit Provider Physician Assistant
DX: M70.21 Olecranon bursitis, right elbow (principal)
CPT/HCPCS: 99212

== ENCOUNTER 2024-08-25 10:06 | Outpatient (REF) | payer MEDICAID, SELFPAY ==
[2023-01-17 08:09] VITALS: BP 108/70; BP 112/76; BP 118/70; BMI 34.0
[2024-08-25 10:31] LABS: MANUAL DIFF FLAG NO
[2024-08-25 11:21] LABS: Basophils Percent Auto 0.7 % (0-2); Eosinophils Absolute Auto 0.1 X10*3/uL (0.0-0.4); Hematocrit 40.2 % (42.0-52.0); Hemoglobin 13.9 g/dl (14.0-18.0); Imm Gran Abs Auto 0.02 X10*3/uL (0.00-0.03); Imm Gran Pct Auto 0.3 % (0.0-0.4); Lymphocytes Absolute Auto 1.9 X10*3/uL (1.2-4.9); Lymphocytes Percent Auto 31.7 % (20-40); Mean Corpuscular HGB Conc 34.6 g/dl (31.0-36.0); Mean Corpuscular Hemoglobin 31.5 pg (27.0-33.0); Mean Corpuscular Volume 91.2 fL (80.0-98.0); Mean Platelet Volume 11.1 fL (9.4-12.4); Monocytes Absolute Auto 0.7 X10*3/uL (0.1-1.2); Monocytes Percent Auto 11.5 % (2-11); Neutrophils Absolute Auto 3.2 x10*3/uL (2.0-8.3); Neutrophils Percent Auto 53.8 % (45-73); Platelet Count 303 X10*3/uL (160-400); Red Blood Count 4.41 X10*6/uL (4.60-5.80)
[2024-08-25 12:02] LABS: Alanine Aminotransferase 37 U/L (0-40); Albumin Level 4.1 g/dL (3.5-5.0); Alkaline Phosphatase 111 U/L (39-117); Anion Gap 10 (12-20); Aspartate Amino Transferase 28 U/L (5-37); Bilirubin Total 0.6 mg/dL (0.0-1.0); Blood Urea Nitrogen 12 mg/dL (9-16); Calcium 9.4 mg/dL (8.4-10.2); Carbon Dioxide 30 mmol/L (22-29); Chloride 103 mmol/L (96-108); Cholesterol 131 mg/dL (<200); Estimated Glomerular Filt Rate > 60; Glucose Random 101 mg/dL (60-115); HDL Cholesterol 53 mg/dL (>40); LDL Cholesterol Calculated 68 mg/dL (<100); Potassium 3.1 mmol/L (3.3-5.1); Sodium 140 mmol/L (135-145); Total Protein 7.1 g/dL (6.5-8.0); Triglycerides 51 mg/dL (<150)
[2024-08-25 12:26] LABS: Uric Acid 6.5 mg/dL (3.4-7.0)
== END 2024-08-25 10:07 | disposition home or self-care (01) ==
LOC: HO.LAB 10:06
PROVIDERS: PCP Internal Medicine Geriatric Medicine; Visit Provider Internal Medicine Geriatric Medicine
DX: I10 Essential (primary) hypertension (principal); M10.9 Gout, unspecified; I25.10 Atherosclerotic heart disease of native coronary artery without angina pectoris
CPT/HCPCS: 36415; 80053; 80061; 84550; 85025

== ENCOUNTER 2024-10-05 08:21 | Outpatient (REF) | payer MEDICAID, SELFPAY ==
[2023-01-17 08:09] VITALS: BP 108/70; BP 112/76; BP 118/70; BMI 34.0
--- OUTSIDE RECORDS SUMMARY | 2024-10-05 08:24 | XMS_ITS ---
Author Name [facility] [facility] [place] [facility] [place] Address [address] [place] [id number] Care Team Providers Care Food Scientist Name Role Phone CHARMAINE YOUSIF Primary Care Provide r Unavailable Insurance Providers: All historical and current Section Date Range: From patient's date of to the date document was created. This section includes the names of all active insurance providers for the patient. Insurance Provider Type of Coverage Plan Name Start of Policy Coverage End of Policy Coverage Group Number Member ID Insurance Provider's Telephone Number Policy Nevarez's Name Patient's Relationship to Policy Nevarez MEDICAID MEDICAID LINDY GERONIMODario EZRA RAE Mar 07, 2017 MEDICAI D [id number] Marilin CHAN PATIENT Selected Encounter This section includes the information on record at [place] for the Encounter. Date/Time Encounter Type Encounter Description Reason Provider Source Oct 30, 2023 01:30 PM COMPRE OPH EXAM EST PT 1/> OPTOMETRY ICD-10-CM H25.13 Age-related nuclear cataract, bilateral MERHAR,ERINN B IHE Encounter Template Text not used by [place] Assessments - Encounter Diagnoses This section includes the primary and secondary diagnoses documented for the Encounter. Date/Time Primary/Secondary Diagnosis Diagnosis Name Provider Source Oct 30, 2023 02:10 PM PRIMARY Age-related nuclear cataract, bilateral MERHAR,ERINN B [place] [facility] [place] [facility] Oct 30, 2023 02:10 PM SECONDARY Homonymous bilateral field defects, left side MERHAR,ERINN B [facility] Oct 30, 2023 02:10 PM SECONDARY Hypermetropia, bilateral MER[facility]N [facility] Oct 30, 2023 02:10 PM SECONDARY Open angle with borderline findings, low risk, bilateral MERHAR,ERINN B [facility] Social History: Smoking Status (Most current) and Tobacco Use (All prior to encounter date) This section includes the most current, and the historical, smoking and tobacco- related health factors from the [place] facility where the Encounter took place. Current Smoking Status This section includes the most current smoking, or tobacco-related health factor, from the [place] facility where the Encounter took place. Date/Time Current Smoking Status Comment Facil ity Aug 08, 2023 03:57 PM VA-TOBACCO FORMER USER [facility] Tobacco Use History This section includes a history of the smoking, or tobacco-related health factors, that were collected on or before the date of the Encounter. The data comes from the [place] facility where the Encounter took place. Date/Time Smoking Status/Tobacco Use Comment F acility Aug 08, 2023 03:57 PM VA-TOBACCO QUIT 15 YRS OR MORE [facility] Aug 07, 2022 10:00 AM VA-TOBACCO [facility] Aug 07, 2022 10:00 AM [place]-TO[place] 15 YRS OR MORE [facility] Advance Directives: All historical and current Section Date Range: From patient's date of to the date document was created. This section includes ALL of a patient's completed or amended [place] Advance and Rescinded Directives. The entries below indicate that a directive exists for the patient, but an actual copy is not included with this document. The data comes from all [place] facilities. Date Advance Directives Provider Source Aug 07, 2018 ADVANCE DIRECTIVE FARHAN TOSCANO Aug 07, 2018 ADVANCE DIRECTIVE STEVE MARSHALL [facility] Encounter Notes: All associated encounter notes This section contains the clinical notes associated to the Encounter. Date/Time Encounter Note(s) Provider Source Oct 30, 2023 01:14 PM OPTOMETRY NOTE: LOCAL TITLE: OPTOMETRY NOTE STANDARD TITLE: OPTOMETRY NOTE DATE OF NOTE: OCT 30, 2023@13:14 ENTRY DATE: OCT 30, 2023@13:14:55 AUTHOR: ERINN JAY EXP COSIGNER: URGENCY: STATUS: COMPLETED 63 WHITE MALE NOT OR Last eye exam: 10/25/22 Reason for Visit/CC: patient here for a comprehensive eye exam. Vision for reading seems a little worse OHx: low risk glaucoma suspect OU cataract OU inferior left homonymous quadrantanopia (-) Pain: (-) SCHUMACHER: (-) Diplopia: (-) Flashes: (-) Floaters: (-) Amaurosis Fugax/Tia's: (-) Eye Injury: (-) Eye Surgery: (-) TBI (-) FOHx: MHx: Code Description I25.10 CAD - Coronary Artery Disease ([facility] [id number]) I71.21 Aneurysm of ascending aorta ([facility] [id number]) I73.9 Peripheral vascular disease ([facility] [id number]) E66.9 Obesity ([facility] [id number]) M10.9 Gout ([facility] [id number]) R69. Raynaud's phenomenon ([facility] [id number]) R69. co-managed (ICD-10-CM R69.) I65.21 Cerebral infarction due to stenosis of carotid artery ([facility] [id number]) H35.81 Cotton wool spots ([facility] [id number]) Z86.73 History of cerebrovascular accident ([facility] [id number]) I10. Essential hypertension ([facility] [id number]) E78.5 Hyperlipidemia ([facility] [id number]) Other: SYSTEMIC MEDICATIONS/OCULAR MEDICATIONS: Active and Recently Outpatient Medications (excluding Supplies): Active Non-VA Medications Status 1) Non-VA ALLOPURINOL 100MG TAB 200MG BY MOUTH ONCE ACTIVE DAILY 2) Non-VA AMLODIPINE BESYLATE 10MG TAB 10MG BY MOUTH ACTIVE ONCE DAILY 3) Non-VA AMOXICILLIN 500MG CAP 2000MG BY MOUTH ONCE ACTIVE DAILY NEEDED 4) Non-VA ASPIRIN 81MG EC TAB 81MG BY MOUTH ONCE DAILY ACTIVE 5) Non-VA ATORVASTATIN CALCIUM 80MG TAB 80MG BY MOUTH ACTIVE ONCE DAILY 6) Non-VA CARVEDILOL 3.125MG TAB 3.125MG BY MOUTH TWICE ACTIVE DAILY 7) Non-VA CYANOCOBALAMIN 1000MCG TAB 1000MCG BY MOUTH ACTIVE ONCE DAILY ALLERGIES: Patient has answered NKA LAST BP: 136/78 (08/12/2023 09:42) PERTINENT LABS: HEMOGLOBIN A1C; BLOOD Kristin. Date: 08/12/23 09:11 Test Name Result Units Range HEMOGLOBIN A1C 5.7 H % 4.0 - 5.6 Current Rx with last BCVA: OD: +1.50 -1.00 x 080 20/20 OS: +2.25 -1.50 x 090 20/20 ADD: +2.00 20/20 DVA ( )sc ( x )cc OD 20/20 OS 20/25 Pupils: unreactive OU (-)APD EOM: Full all meridia OU, (-) pain/diplopia Confrontation Visual [place]: Full all meridia OU Subjective: OD +1.75 -1.00 x 080 20/20 OS +1.75 -1.50 x 090 20/20 Add: +2.25 SLE: Lids/Lashes: dermatochalais OU Conjunctiva: white and quiet OU Corneas: clear OU Iris: flat and clear OU (-)TID OU Anterior Chamber: deep and quiet OU Angles: open OU Lens: 1+ NS OU (-)PXF OU TAP @ 1:28pm Valdez holding lids OD 18 mm Hg OS 18 mm Hg Previous Pachymetry: OD: 642um OS: 668um Dilating Drops: 1 gtt 1% Tropicamide OU, 2.5% phenylephrine OU (Pt. ed. on side effects) Vitreous: Syneresis OU C/D (Size and Rim Description) OD 0.70 pink & healthy OS 0.75 pink & healthy (-)notching/hemorrhage OU Macula OD flat and clear OS flat and clear A/V: normal caliber OU Posterior Pole: clear OU Periphery: Flat and intact (-)holes, tears, detachments 360 OU Assessment/Plan: 1. Nuclear sclerosis cataracts OU, not visually significant. Monitor 2. low risk open angle glaucoma suspect OU secondary to large cupping. IOP normotensive with thicker than average pachymetry. Last OCT borderline superior OU with larger than average discs. Previous davenport showed stable inferior left defect from prior CVA. Cupping appears physiologic with low concern for glaucoma. Continue to monitor annaully 3. inferior left quadrantanopia 2^ CVA - stable 4. hyperopia OU, presbyopia OU - order new PALs with transitions and second set with yellow tint RTC 1 year or earlier PRN Patient Education: Glaucoma: Patient was educated regarding glaucoma/glaucoma suspect as well as the natural history of this diagnosis including prognosis. Stress importance of compliance and persistency with glaucoma medication when prescribed, timely follow up as well as the role of ancillary testing. Exclusion criteria for ancillary testing include significantly reduced acuity, mental status changes affecting the patient's ability to attend to the test or other physical limitations that would prohibit the patient's ability to participate in testing. patient offered and declined printed medication list Medication Reconciliation: Outpatient: Has the patient been taking medications as documented in the EMLR? YES: The patient has been taking medications as documented in the EMLR. Essential Medication List for Review used to complete this medication reconciliation. INCLUDED IN THIS LIST: Alphabetical list of active outpatient prescriptions dispensed from this [facility] (local) and dispensed from another VA or [facility] facility (remote) as well as inpatient orders (local, pending and active), local clinic medications, locally documented non-VA medications, and local prescriptions that have or been discontinued in the past 90 days. - All changes in medications, including all non-VA/Herbal/OTC medications were entered into CPRS. - If there were any medications the patient should no longer take, they were discontinued. - The patient/caregiver was instructed to update this list, discard old lists, and take this list to the next appointment, whether with a VA or non-VA provider. Medication List: JLV Link Data on this list may not be complete. Please check JLV. Allergies/ADRs (Tool #5) FACILITY ALLERGY/ADR -------- No Remote Allergy/ADR Data available for this patient [place] [facility] [place] [facility] No Known Allergies Med. Reconciliation (Tool #1) INCLUDED IN THIS LIST: Alphabetical list of active outpatient prescriptions dispensed from this [place] (local) and dispensed from another [place] or [facility] facility (remote) as well as inpatient orders (local pending and active), local clinic medications, locally documented non-VA medications, and local prescriptions that have or been discontinued in the past 90 days. Non-VA Meds Last Documented On: Aug 12, 2023 NOTE The display of VA prescriptions dispensed from another [place] or [facility] facility (remote) is limited to active outpatient prescription entries matched to National Drug File at the originating site and may not include some items such as investigational drugs, compounds, etc. NOT INCLUDED IN THIS LIST: Medications self-entered by the patient into personal health records (i.e. [employer]) are NOT included in this list. Non-VA medications documented outside this [place], remote inpatient orders (regardless of status) and remote clinic medications are NOT included in this list. The patient and provider must always discuss medications the patient is taking, regardless of where the medication was dispensed or obtained. Non-VA ALLOPURINOL 100MG TAB TAKE TWO TABLETS BY MOUTH ONCE DAILY Patient wants to buy from Non-VA pharmacy. Medication prescribed by Non-VA provider. Non-VA AMLODIPINE BESYLATE 10MG TAB TAKE ONE TABLET BY MOUTH ONCE DAILY Patient wants to buy from Non-VA pharmacy. Medication prescribed by Non-VA provider. Non-VA AMOXICILLIN 500MG CAP TAKE 4 CAPSULES BY MOUTH ONCE DAILY NEEDED Patient wants to buy from Non-VA pharmacy. dental PPX Indication: FOR INFECTION CAUSED BY BACTERIA Non-VA ASPIRIN 81MG EC TAB TAKE ONE TABLET BY MOUTH QDaily Medication prescribed by Non-VA provider. Non-VA ATORVASTATIN CALCIUM 80MG TAB TAKE ONE TABLET BY MOUTH QDaily Medication prescribed by Non-VA provider. Non-VA CARVEDILOL 3.125MG TAB TAKE ONE TABLET BY MOUTH TWICE DAILY Patient wants to buy from Non-VA pharmacy. Indication: FOR HIGH BLOOD PRESSURE Non-VA CYANOCOBALAMIN 1000MCG TAB TAKE ONE TABLET BY MOUTH ONCE DAILY Patient wants to buy from Non-VA pharmacy. SUPPLIES PHARMACY TERMS AND POSSIBLE PATIENT ACTIONS INPT = [place] inpatient order IV = [place] intravenous medication OUTPT = [place] outpatient prescription PHARMACY POSSIBLE PATIENT TERMS EXPLANATION ACTIONS -------- ----- ACTIVE A prescription that can be If you have refills, filled at the local [place] pharmacy. you may request a refill of this prescription from your [place] pharmacy. CLINIC A medication you received during If you have questions a visit to a [place] clinic or about this medication emergency department. contact your [place] healthcare team. DISCONTINUED A prescription your provider has Contact your VA stopped. It is no longer healthcare team if you available to be sent to you or need more of this picked up at the [place] pharmacy medication. window. A prescription which is too old Contact your VA to fill. This does not refer to healthcare team if you the expiration date of the need more of this medication in the container. medication. NON-VA A medication that came from If this medication someplace other than a VA information is pharmacy. This may be a incorrect or out of prescription from either the VA date, please tell your or non VA providers that was VA healthcare team. filled outside the VA. Or, it may be an [id number] (OTC), herbal, dietary supplements or sample medication. ON HOLD An active prescription that will Contact your VA not be filled until pharmacy pharmacy when you need resolves the issue. more of this medication. PARKED An active prescription that will Contact your VA not be filled until the patient pharmacy when you need requests it. this medication. PENDING This prescription order has been If you have been sent to the pharmacy for review instructed to start and is not ready yet. this medication now, contact your VA pharmacy. SUSPENDED An active prescription that is Contact your VA not scheduled to be filled yet. pharmacy if you need You should receive it before this medication now. you run out. /norris/ ERINN JAY OD Area Cleaner Signed: 10/30/2023 14:14 ERINN JAY [place] [facility]
--- OUTSIDE RECORDS SUMMARY | 2024-10-05 08:24 | XMS_ITS | Continuity of Care Document ---
Author Name [facility] Organization [facility] Care Team Providers Care Financial Institution President Name Role Phone [facility] Unavailable Unavailable Problems Combined list of problems from Department of Defense and Veterans Affairs facilities. It does not include entries that were removed or entered in error. Problem Status Onset Date Problem Type Date of Resolution Comments Source Aneurysm of ascending aorta Active Condition Aug 18, 2023 Entered By: CHARMAINE PHILLIPS Comment: s/p repair 09/2022 [place] CAD - Coronary Artery Disease (SCT [id number]) Active Condition Aug 18, 2023 Entered By: CHARMAINE PHILLIPS Comment: (s/p CABGx3 09/2022 [place] Cerebral infarction due to stenosis of carotid artery Active Condition Aug 06, 2021 Entered By: CHARMAINE PHILLIPS Comment: YUE stenosis [facility] co-managed Active Condition Jan 14 Entered By: JAVON BRUMFIELD Comment: pcp----Dr. Tasha Jerez---[facility]---(t) [phone] (f) [phone] [facility] Cotton wool spots Active Condition [facility] Essential hypertension Active Condition Aug 02, 2021 Entered By: CHARMAINE PHILLIPS Comment: #ECHO 2017 LVH EF 66%, grade I diastolic dysfunction [facility] Gout Active Condition [place] History of cerebrovascular accident Active Condition [facility] Hyperlipidemia Active Condition [facility] Obesity (SCT [id number]) Active Condition [place] Peripheral vascular disease Active Condition [facility] Raynaud's phenomenon Active Condition [place] Diagnosis: ICD-10-CM Z23 Encounter for immunization Active Diagnosis [facility] Diagnosis: ICD-10-CM Z46.0 Encounter for fit/adjst of spectacles and contact lenses Active Diagnosis [facility] Diagnosis: ICD-10-CM H25.13 Age-related nuclear cataract, bilateral Active Diagnosis [facility] Diagnosis: ICD-10-CM E66.9 Obesity, unspecified Active Diagnosis [place] Medications Combined list of outpatient medications from Department of Defense and Veterans Affairs facilities.Medications provided include 1) outpatient medications from the last 15 months, and 2) patient-reported medications. Medication Details Route Status Patient Instructions Prescription Expires Prescription Number Last Dispense Date Ordering Provider Order Date Order Qty Source ALLOPURINOL 100MG TAB TAKE TWO TABLETS BY MOUTH ONCE DAILY ORAL ACTIVE NADAZDINCHARMAINE MOTLEY 2022 [facility] IELD AMLODIPINE BESYLATE 10MG TAB TAKE ONE TABLET BY MOUTH ONCE DAILY ORAL ACTIVE NADCHARMAINE JARAMILLO 2022 [facility] IELD AMOXICILLIN TRIHYDRATE 500MG CAP TAKE 4 CAPSULES BY MOUTH ONCE DAILY NEEDED ORAL ACTIVE NADAZCHARMAINE NORMAN 2022 [facility] IELD ASPIRIN 81MG TAB,EC TAKE ONE TABLET BY MOUTH QD ORAL ACTIVE NADCHARMAINE JARAMILLO 2022 [facility] IELD ATORVASTATI N CA 80MG TAB TAKE ONE TABLET BY MOUTH QD ORAL ACTIVE NADCHARMAINE JARAMILLO 2022 [facility] IELD CARVEDILOL 3.125MG TAB TAKE ONE TABLET BY MOUTH TWICE DAILY ORAL ACTIVE CHARMAINE BOSTON 2022 [facility] IELD CYANOCOBALA MIN 1000MCG TAB TAKE ONE TABLET BY MOUTH ONCE DAILY ORAL ACTIVE CHARMAINE BOSTON 2022 [facility] IELD Immunizations Combined list of available immunizations from the Department of Defense and Veterans Affairs facilities. 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 Status Comments Source INFLUENZA, HIGH-DOSE, TRIVALENT, PF 09/13/ 202BONNY BUSTILLO LEFT DELTO ID [id number] 135 complet ed [facility] INFLUENZA, UNSPECIFIED FORMULATION 2022 88 complet ed [facility] INFLUENZA, UNSPECIFIED FORMULATION 2021 88 complet ed [facility] COVID-19 (PFIZER), MRNA, LNP-S, PF, 30 MCG/0.3 ML DOSE, JIMI-SUCROSE (AGES 12+ YEARS) 3 2021 217 complet ed [facility] COVID-19 (PFIZER), MRNA, LNP-S, PF, 30 MCG/0.3 ML DOSE, JIMI-SUCROSE (AGES 12+ YEARS) 3 2020 217 complet ed [facility] PNEUMOCOCCAL POLYSACCHARID E PPV23 2020 33 complet ed [place] INFLUENZA, UNSPECIFIED FORMULATION 2020 88 complet ed [facility] COVID-19 (MODERNA), MRNA, LNP-S, PF, 100 MCG/0.5 ML DOSE 2 2020 207 complet ed MOD; [id number]; 1 [facility] COVID-19 (MODERNA), MRNA, LNP-S, PF, 100 MCG/0.5 ML DOSE 1 2020 207 complet ed MOD; [id number]; 1 [facility] ZOSTER RECOMBINANT 2018 187 complet ed [facility] ZOSTER RECOMBINANT 2018 187 complet ed [facility] INFLUENZA, INJECTABLE, QUADRIVALENT, PRESERVATIVE FREE 2017 150 complet ed Partner: [facility]. Administe red by: [facility] Clinician (NPI=Not Provided) . Partner 9 Lot#: [id number] Mfr: GlaxoSmit hKline [facility] TDAP 2016 115 complet ed [facility] INFLUENZA, SEASONAL, INJECTABLE 2016 141 complet ed Site: Left Deltoid [facility] Results Combined list of recent chemistry, hematology and other laboratory results from Department of Defense and Veterans Affairs, ranging from 15 months to all on record, depending upon the facility. Order Name Results Value Reference Range Date Interpretation Specimen Comments Source PSA PROSTATE SPECIFIC AG [MASS/VOLUM E] IN SERUM OR PLASMA 0.90 ng/mL 0.00 - 4.00 08/24 Specimen Type: SERUM No comment entered. Ordering Provider: AMOL PEDERSON Report Released Date/Time: Aug 18, 2023 11:27 AM Reporting Lab: [address] [address] Performing Lab: [address] [address] [employer] BASIC METABOLIC PANEL (fasting) UREA NITROGEN [MASS/VOLUM E] IN SERUM OR PLASMA 14 mg/dL 7 - 25 08/24 Specimen Type: SERUM No comment entered. Ordering Provider: AMOL PEDERSON Report Released Date/Time: Aug 18, 2023 11:27 AM Reporting Lab: [address] [address] Performing Lab: [address] [address] [place] BASIC METABOLIC PANEL (fasting) GLUCOSE [MASS/VOLUM E] IN SERUM OR PLASMA 97 mg/dL 65 - 100 08/24 Specimen Type: SERUM No comment entered. Ordering Provider: AMOL PEDERSON Report Released Date/Time: Aug 18, 2023 11:27 AM Reporting Lab: [address] [address] Performing Lab: [address] [address] [place] BASIC METABOLIC PANEL (fasting) SODIUM [MOLES/VOLU ME] IN SERUM OR PLASMA 142 mmol/L 135 - 145 08/24 Specimen Type: SERUM No comment entered. Ordering Provider: AMOL PEDERSON Report Released Date/Time: Aug 18, 2023 11:27 AM Reporting Lab: [facility] [address] [facility] [address] Performing Lab: [facility] [address] [facility] [address] [place] BASIC METABOLIC PANEL (fasting) POTASSIUM [MOLES/VOLU ME] IN SERUM OR PLASMA 3.9 mmol/L 3.5 - 5.0 08/24 Specimen Type: SERUM No comment entered. Ordering Provider: AMOL PEDERSON Report Released Date/Time: Aug 18, 2023 11:27 AM Reporting Lab: [facility] [address] Performing Lab: [facility] [address] [address] [place] BASIC METABOLIC PANEL (fasting) CHLORIDE [MOLES/VOLU ME] IN SERUM OR PLASMA 100 mmol/L 100 - 110 08/24 Specimen Type: SERUM No comment entered. Ordering Provider: AMOL PEDERSON Report Released Date/Time: Aug 18, 2023 11:27 AM Reporting Lab: [facility] [address] Performing Lab: [facility] [address] [place] BASIC METABOLIC PANEL (fasting) CARBON DIOXIDE, TOTAL [MOLES/VOLU ME] IN SERUM OR PLASMA 30 meq/L 20 - 30 08/24 Specimen Type: SERUM No comment entered. Ordering Provider: AMOL PEDERSON Report Released Date/Time: Aug 18, 2023 11:27 AM Reporting Lab: [facility] [address] [facility] [address] Performing Lab: [facility] [address] [place] BASIC METABOLIC PANEL (fasting) CREATININE [MASS/VOLUM E] IN SERUM OR PLASMA 0.83 mg/dL 0.50 - 1.40 08/24 Specimen Type: SERUM No comment entered. Ordering Provider: AMOL PEDERSON Report Released Date/Time: Aug 18, 2023 11:27 AM Reporting Lab: [facility] [address] [address] Performing Lab: [facility] [address] [address] [place] BASIC METABOLIC PANEL (fasting) GLOMERULAR FILTRATION RATE/1.73 SQ M.PREDICTED [VOLUME RATE/AREA] IN SERUM, PLASMA OR BLOOD BY CREATININE- BASED FORMULA (CKD-EPI 2020) >90mL/ min 60 08/24 Specimen Type: SERUM No comment entered. Ordering Provider: AMOL PEDERSON Report Released Date/Time: Aug 18, 2023 11:27 AM Reporting Lab: [facility] [address] [address] Performing Lab: [facility] [address] [address] [place] LIPID PANEL FASTING CHOLESTEROL [MASS/VOLUM E] IN SERUM OR PLASMA 139 mg/dL 08/24 Specimen Type: SERUM No comment entered. Ordering Provider: AMOL PEDERSON Report Released Date/Time: Aug 18, 2023 11:27 AM Reporting Lab: [facility] [address] Performing Lab: [facility] [address] [place] LIPID PANEL FASTING TRIGLYCERID E [MASS/VOLUM E] IN SERUM OR PLASMA 51 mg/dL 0 - 150 08/24 Specimen Type: SERUM No comment entered. Ordering Provider: AMOL PEDERSON Report Released Date/Time: Aug 18, 2023 11:27 AM Reporting Lab: [facility] [address] [address] Performing Lab: [facility] [address] [facility] [address] [place] LIPID PANEL FASTING CHOLESTEROL IN LDL [MASS/VOLUM E] IN SERUM OR PLASMA BY CALCULATION 77 mg/dL 0 - 129 08/24 Specimen Type: SERUM No comment entered. Ordering Provider: AMOL PEDERSON Report Released Date/Time: Aug 18, 2023 11:27 AM Reporting Lab: [facility] [address] [address] Performing Lab: [facility] [address] [place] LIPID PANEL FASTING CHOLESTEROL .TOTAL/CHOL ESTEROL IN HDL [MASS RATIO] IN SERUM OR PLASMA 2.7 08/24 Specimen Type: SERUM No comment entered. Ordering Provider: AMOL PEDERSON Report Released Date/Time: Aug 18, 2023 11:27 AM Reporting Lab: [facility] [address] [address] Performing Lab: [facility] [address] [address] [place] LIPID PANEL FASTING CHOLESTEROL IN HDL [MASS/VOLUM E] IN SERUM OR PLASMA 52 mg/dL 40 - 60 08/24 Specimen Type: SERUM No comment entered. Ordering Provider: AMOL PEDERSON Report Released Date/Time: Aug 18, 2023 11:27 AM Reporting Lab: [facility] [address] [address] Performing Lab: [facility] [address] [place] LIVER FUNCTION PROTEIN [MASS/VOLUM E] IN SERUM OR PLASMA 6.6 g/dL 6.0 - 8.3 08/24 Specimen Type: SERUM No comment entered. Ordering Provider: AMOL PEDERSON Report Released Date/Time: Aug 18, 2023 11:27 AM Reporting Lab: [facility] [address] [address] Performing Lab: [facility] [place] [facility] [address] [facility] [address] [place] LIVER FUNCTION ALBUMIN [MASS/VOLUM E] IN SERUM OR PLASMA 3.7 g/dL 3.5 - 5.0 08/24 Specimen Type: SERUM No comment entered. Ordering Provider: AMOL PEDERSON Report Released Date/Time: Aug 18, 2023 11:27 AM Reporting Lab: [facility] [place] [facility] [address] [facility] [address] Performing Lab: [facility] [address] [place] LIVER FUNCTION ALKALINE PHOSPHATASE [ENZYMATIC ACTIVITY/VO LUME] IN SERUM OR PLASMA 108 U/L 40 - 150 08/24 Specimen Type: SERUM No comment entered. Ordering Provider: AMOL PEDERSON Report Released Date/Time: Aug 18, 2023 11:27 AM Reporting Lab: [facility] [place] [facility] [address] [facility] [address] Performing Lab: [facility] [address] [address] [place] LIVER FUNCTION ASPARTATE AMINOTRANSF ERASE [ENZYMATIC ACTIVITY/VO LUME] IN SERUM OR PLASMA 20 U/L 5 - 34 08/24 Specimen Type: SERUM No comment entered. Ordering Provider: AMOL PEDERSON Report Released Date/Time: Aug 18, 2023 11:27 AM Reporting Lab: [facility] [place] [facility] [address] [facility] [address] Performing Lab: [facility] [address] [address] [place] LIVER FUNCTION ALANINE AMINOTRANSF ERASE [ENZYMATIC ACTIVITY/VO LUME] IN SERUM OR PLASMA 27 U/L 08/24 Specimen Type: SERUM No comment entered. Ordering Provider: AMOL PEDERSON Report Released Date/Time: Aug 18, 2023 11:27 AM Reporting Lab: [facility] [place] [facility] [address] [facility] [address] Performing Lab: [facility] [place] [facility] [address] [facility] [address] [place] LIVER FUNCTION BILIRUBIN.T OTAL [MASS/VOLUM E] IN SERUM OR PLASMA 0.5 mg/dL 0.2 - 1.2 08/24 Specimen Type: SERUM No comment entered. Ordering Provider: AMOL PEDERSON Report Released Date/Time: Aug 18, 2023 11:27 AM Reporting Lab: [facility] [place] [address] [address] Performing Lab: [facility] [place] [address] [address] [place] HEMOGLOBI N A1C PANEL HEMOGLOBIN A1C/HEMOGLO BIN.TOTAL IN BLOOD BY HPLC 5.7 4.0 - 5.6 08/24 H Specimen Type: BLOOD Comment: Values obtained from A1C measurement s can vary. For atypical A1C assays, a reported value of 7.0 could actually be between 6.72 and 7.28 if measured by a reference method. A reported value of 9.0 could actually be between 8.73 and 9.27. Ref: http://www. ngsp.org/CA Pdata.asp Ordering Provider: AMOL PEDERSON Report Released Date/Time: Aug 18, 2023 11:27 AM Reporting Lab: [facility] [place] [address] [address] Performing Lab: [facility] [place] [address] [address] [place] TSH THYROTROPIN [UNITS/VOLU ME] IN SERUM OR PLASMA 2.14 u[IU]/ mL 0.35 - 5.00 08/24 Specimen Type: SERUM No comment entered. Ordering Provider: AMOL PEDERSON Report Released Date/Time: Aug 18, 2023 11:27 AM Reporting Lab: [facility] [place] [address] [address] Performing Lab: [facility] [place] [facility] [address] [facility] [address] [place] CBC AND DIFF (AUTO) LEUKOCYTES [#/VOLUME] IN BLOOD BY AUTOMATED COUNT 5.41 10*3/u L 4.50 - 11.00 08/24 Specimen Type: BLOOD No comment entered. Ordering Provider: AMOL PEDERSON Report Released Date/Time: Aug 18, 2023 11:27 AM Reporting Lab: [facility] [place] [address] [address] Performing Lab: [facility]THTRN [facility] [address] [address] [place] CBC AND DIFF (AUTO) ERYTHROCYTE S [#/VOLUME] IN BLOOD BY AUTOMATED COUNT 4.34 10*6/u L 4.23 - 5.66 08/24 Specimen Type: BLOOD No comment entered. Ordering Provider: AMOL PEDERSON Report Released Date/Time: Aug 18, 2023 11:27 AM Reporting Lab: [facility] [place] [address] [address] Performing Lab: [facility] [place] [address] [address] [place] CBC AND DIFF (AUTO) HEMOGLOBIN [MASS/VOLUM E] IN BLOOD 13.4 g/dL 12.8 - 17 08/24 Specimen Type: BLOOD No comment entered. Ordering Provider: AMOL PEDERSON Report Released Date/Time: Aug 18, 2023 11:27 AM Reporting Lab: [facility] [place] [address] [address] Performing Lab: [facility]PITALN [facility] [address] [address] [place] CBC AND DIFF (AUTO) HEMATOCRIT [VOLUME FRACTION] OF BLOOD BY AUTOMATED COUNT 39.5 39.2 - 50.4 08/24 Specimen Type: BLOOD No comment entered. Ordering Provider: AMOL PEDERSON Report Released Date/Time: Aug 18, 2023 11:27 AM Reporting Lab: [facility] [place] [facility] [address] [facility] [address] Performing Lab: [facility] [place] [facility] [address] [facility] [address] [place] CBC AND DIFF (AUTO) MCV [ENTITIC VOLUME] BY AUTOMATED COUNT 91.0 fL 82 - 99 08/24 Specimen Type: BLOOD No comment entered. Ordering Provider: AMOL PEDERSON Report Released Date/Time: Aug 18, 2023 11:27 AM Reporting Lab: [facility] [place] [facility] [address] [facility] [address] Performing Lab: [facility] [place] [facility] [address] [facility] [address] [place] CBC AND DIFF (AUTO) MCHC [MASS/VOLUM E] BY AUTOMATED COUNT 33.9 g/dL 30.8 - 35.1 08/24 Specimen Type: BLOOD No comment entered. Ordering Provider: AMOL PEDERSON Report Released Date/Time: Aug 18, 2023 11:27 AM Reporting Lab: [facility] [place] [facility] [address] [facility] [address] Performing Lab: [facility] [place] [facility] [address] [facility] [address] [place] CBC AND DIFF (AUTO) PLATELETS [#/VOLUME] IN BLOOD BY AUTOMATED COUNT 293 10*3/u L 140 - 360 08/24 Specimen Type: BLOOD No comment entered. Ordering Provider: AMOL PEDERSON Report Released Date/Time: Aug 18, 2023 11:27 AM Reporting Lab: [facility] [place] [facility] [address] [facility] [address] Performing Lab: [facility] [place] [address] [address] [place] CBC AND DIFF (AUTO) ERYTHROCYTE DISTRIBUTIO N WIDTH [RATIO] BY AUTOMATED COUNT 12.7 12.0 - 16.0 08/24 Specimen Type: BLOOD No comment entered. Ordering Provider: NADAMOL DEVLIN Report Released Date/Time: Aug 18, 2023 11:27 AM Reporting Lab: [facility] [place] [address] [address] Performing Lab: [facility] [place] [address] [address] [place] CBC AND DIFF (AUTO) MONOCYTES [#/VOLUME] IN BLOOD BY AUTOMATED COUNT 0.61 10*3/u L 0.30 - 1.10 08/24 Specimen Type: BLOOD No comment entered. Ordering Provider: AMOL PEDERSON Report Released Date/Time: Aug 18, 2023 11:27 AM Reporting Lab: [facility] [place] [address] [address] Performing Lab: [facility] [place] [address] [address] [place] CBC AND DIFF (AUTO) MCH [ENTITIC MASS] BY AUTOMATED COUNT 30.9 pg 26.2 - 32.6 08/24 Specimen Type: BLOOD No comment entered. Ordering Provider: AMOL PEDERSON Report Released Date/Time: Aug 18, 2023 11:27 AM Reporting Lab: [facility] [place] [address] [address] Performing Lab: [facility] [place] [address] [address] [place] CBC AND DIFF (AUTO) NEUTROPHILS /100 LEUKOCYTES IN BLOOD BY AUTOMATED COUNT 50.0 43.7 - 75.8 08/24 Specimen Type: BLOOD No comment entered. Ordering Provider: AMOL PEDERSON Report Released Date/Time: Aug 18, 2023 11:27 AM Reporting Lab: [facility] [place] [address] [address] Performing Lab: [facility] [place] [address] [address] [place] CBC AND DIFF (AUTO) LYMPHOCYTES /100 LEUKOCYTES IN BLOOD BY AUTOMATED COUNT 34.9 14.0 - 42.3 08/24 Specimen Type: BLOOD No comment entered. Ordering Provider: AMOL PEDERSON Report Released Date/Time: Aug 18, 2023 11:27 AM Reporting Lab: [facility] [place] [facility] [address] [facility] [address] Performing Lab: [facility] [address] [facility] [address] [place] CBC AND DIFF (AUTO) MONOCYTES/1 00 LEUKOCYTES IN BLOOD BY AUTOMATED COUNT 11.3 5.1 - 13.7 08/24 Specimen Type: BLOOD No comment entered. Ordering Provider: AMOL PEDERSON Report Released Date/Time: Aug 18, 2023 11:27 AM Reporting Lab: [facility] [address] [address] Performing Lab: [facility] [address] [address] [place] CBC AND DIFF (AUTO) EOSINOPHILS /100 LEUKOCYTES IN BLOOD BY AUTOMATED COUNT 2.8 0.4 - 6.8 08/24 Specimen Type: BLOOD No comment entered. Ordering Provider: AMOL PEDERSON Report Released Date/Time: Aug 18, 2023 11:27 AM Reporting Lab: [facility] [address] [address] Performing Lab: [facility] [place] [address] [address] [place] CBC AND DIFF (AUTO) BASOPHILS/1 00 LEUKOCYTES IN BLOOD BY AUTOMATED COUNT 0.6 0.1 - 2.0 08/24 Specimen Type: BLOOD No comment entered. Ordering Provider: AMOL PEDERSON Report Released Date/Time: Aug 18, 2023 11:27 AM Reporting Lab: [facility] [place] [address] [address] Performing Lab: [facility] [address] [address] [place] CBC AND DIFF (AUTO) NEUTROPHILS [#/VOLUME] IN BLOOD BY AUTOMATED COUNT 2.71 10*3/u L 2.20 - 7.60 08/24 Specimen Type: BLOOD No comment entered. Ordering Provider: AMOL PEDERSON Report Released Date/Time: Aug 18, 2023 11:27 AM Reporting Lab: [facility] [address] Performing Lab: [facility] [address] [address] [place] CBC AND DIFF (AUTO) LYMPHOCYTES [#/VOLUME] IN BLOOD BY AUTOMATED COUNT 1.89 10*3/u L 1.00 - 3.20 08/24 Specimen Type: BLOOD No comment entered. Ordering Provider: AMOL PEDERSON Report Released Date/Time: Aug 18, 2023 11:27 AM Reporting Lab: [facility] [address] [address] Performing Lab: [facility] [address] [address] [place] CBC AND DIFF (AUTO) EOSINOPHILS [#/VOLUME] IN BLOOD BY AUTOMATED COUNT 0.15 10*3/u L 0.03 - 0.44 08/24 Specimen Type: BLOOD No comment entered. Ordering Provider: AMOL PEDERSON Report Released Date/Time: Aug 18, 2023 11:27 AM Reporting Lab: [facility] [address] [address] Performing Lab: [facility] [address] [address] [place] CBC AND DIFF (AUTO) BASOPHILS [#/VOLUME] IN BLOOD BY AUTOMATED COUNT 0.03 10*3/u L 0.01 - 0.13 08/24 Specimen Type: BLOOD No comment entered. Ordering Provider: AMOL PEDERSON Report Released Date/Time: Aug 18, 2023 11:27 AM Reporting Lab: [facility] [address] [address] Performing Lab: [facility] [address] [facility] [address] [place] CBC AND DIFF (AUTO) IMMATURE GRANULOCYTE S/100 LEUKOCYTES IN BLOOD BY AUTOMATED COUNT 0.4 0.0 - 0.7 08/24 Specimen Type: BLOOD No comment entered. Ordering Provider: AMOL PEDERSON Report Released Date/Time: Aug 18, 2023 11:27 AM Reporting Lab: [facility] [address] [address] Performing Lab: [facility] [address] [place] CBC AND DIFF (AUTO) IMMATURE GRANULOCYTE S [#/VOLUME] IN BLOOD 0.02 10*3/u L 0.00 - 0.06 08/24 Specimen Type: BLOOD No comment entered. Ordering Provider: AMOL PEDERSON Report Released Date/Time: Aug 18, 2023 11:27 AM Reporting Lab: [facility] [address] [id number] Performing Lab: [facility] [address] [place] CBC AND DIFF (AUTO) NRBC % 0.0 0.0 - 0.0 08/24 Specimen Type: BLOOD No comment entered. Ordering Provider: AMOL PEDERSON Report Released Date/Time: Aug 18, 2023 11:27 AM Reporting Lab: [facility] [address] Performing Lab: [facility] [address] [place] CBC AND DIFF (AUTO) NRBC, ABS 0.00 10*3/u L 0.00 - 0.00 08/24 Specimen Type: BLOOD No comment entered. Ordering Provider: AMOL PEDERSON Report Released Date/Time: Aug 18, 2023 11:27 AM Reporting Lab: [facility] [address] [facility] [address] Performing Lab: [facility] [address] [facility] [address] [place] MICROALBU MIN CREATININ E RATIO PANEL MICROALBUMI N/CREATININ E [MASS RATIO] IN URINE 74.5 mg/g 0 - 29.9 08/24 H Specimen Type: URINE No comment entered. Ordering Provider: AMOL PEDERSON Report Released Date/Time: Aug 18, 2023 11:27 AM Reporting Lab: [facility] [address] [facility] [address] Performing Lab: [facility]ITAL[facility]ETS [address] [address] [place] MICROALBU MIN CREATININ E RATIO PANEL MICROALBUMI N [MASS/VOLUM E] IN URINE 6.6 mg/dL 08/24 Specimen Type: URINE No comment entered. Ordering Provider: AMOL PEDERSON Report Released Date/Time: Aug 18, 2023 11:27 AM Reporting Lab: [facility] [address] [facility] [address] Performing Lab: [facility] [address] [facility] [address] [place] MICROALBU MIN CREATININ E RATIO PANEL CREATININE [MASS/VOLUM E] IN URINE 88.60 mg/dL 08/24 Specimen Type: URINE No comment entered. Ordering Provider: AMOL PEDERSON Report Released Date/Time: Aug 18, 2023 11:27 AM Reporting Lab: [facility] [address] [facility] [address] Performing Lab: [facility]ITAL[facility] [address] [address] [place] URIC ACID URATE [MASS/VOLUM E] IN SERUM OR PLASMA 6.0 mg/dL 3.5 - 7.2 11/18 /2024 Specimen Type: SERUM No comment entered. Ordering Provider: AMOL PEDERSON Report Released Date/Time: Aug 18, 2023 11:27 AM Reporting Lab: [place] [facility] [place] [facility] [address] [facility] [address] Performing Lab: [place] [facility] [place] [facility] [address] [facility] [address] [place] VITAMIN D (25-OH) 25-HYDROXYV ITAMIN D3 [MASS/VOLUM E] IN SERUM OR PLASMA 66 ng/mL 20 - 50 08/24 H Specimen Type: SERUM No comment entered. Ordering Provider: AMOL PEDERSON Report Released Date/Time: Aug 18, 2023 11:27 AM Reporting Lab: [facility] [address] [facility] [address] Performing Lab: [facility]ITALN [facility] [address] [place] Encounters Combined list of: 1) Encounters from Department of Veterans Affairs facilities going back up to thelast 18 months. 2) Encounters from the Department of Defense facilities going back up to 280 months. Location Location Details Encounter Type Encounter Number Reason For Visit Attending Provider ADM Date DC Date Status Disposition Source [place] [facility] [facility] Outpatient Encounter [id number] 07/26 [place] [facility] [facility] [place] [place] [facility] Outpatient Encounter [id number] 08/08 [place] [facility] [place] [facility] [facility] [place] [facility] Outpatient Encounter [id number] 08/12 [place] [facility] [facility] [place] OFFICE O/P EST MOD 30-39 MIN [id number] Diagnos is: ICD-10- CM E66.9 Obesity , unspeci fied
PERRY POON 08/12 [place] [facility] [facility] Outpatient Encounter [id number] 08/14 [facility] [place] [place] [facility] COMPRE OPH EXAM EST PT 1/> [id number] Diagnos is: ICD-10- CM H25.13 Age-rel ated nuclear catarac t, bilater al
MERHAR,YANG H B 10/30 [facility] [place] [place] [facility] FIT SPECTACLES MULTIFOCAL [id number] Diagnos is: ICD-10- CM Z46.0 Encount er for fit/adj st of spectac les and contact lenses< br/> MERHAR,YANG H B 10/31 [facility] [place] [place] [facility] [place] [facility] OFF/OP EST MAY X REQ PHY/QHP [id number] Diagnos is: ICD-10- CM Z23 Encount er for immuniz ation<b r/> RA BARBARA MATUTE 06/19 [facility] [place] [facility] [place] Outpatient Encounter [id number] 08/24 [facility] [place] Social History Combined list of available smoking, tobacco, and other social history from Department of Defense and Veterans Affairs facilities. Social History Type Response Date Comment Sourc e Tobacco smoking status [facility] VA-TOBACCO FORMER USER 08/08/2023 [facility] [place] [facility] History of tobacco use IA-TOBACCO QUIT 15 YRS OR MORE 08/08/2023 [facility] [place] [facility] History of tobacco use VA-TOBACCO FORMER USER 08/07/2022 [place] [facility] [place] [facility] History of tobacco use VA-TOBACCO FORMER USER 08/03/2021 [place] History of tobacco use VA-TOBACCO FORMER USER 02/04/2018 [place] History of tobacco use QUIT TOBACCO USE > 7 YEARS AGO 03/19/2017 quit in 1999 [place] Plan of Care List of future care activities from [facility] facilities. Additional future care activities may be listed in the Assessment and Plan section. Date/Time Care Activity Care Activity Detail Facili ty 10/23/2024 AMBULATORY - MEDICINE AMBULATORY - MEDICI [facility] 11/02/2024 AMBULATORY - MEDICINE AMBULATORY - MEDICI [facility] 11/02/2024 AMBULATORY - MEDICINE AMBULATORY - MEDICI [facility] Advance Directives List of completed, amended, or rescinded Advance Directives on record at [facility] facilities. An actual copy of the Directive is not included. Date Advance Directive Provider Source 08/07/2018 ADVANCE DIRECTIVE FARHAN TOSCANO [facility] 08/07/2018 ADVANCE DIRECTIVE STEVE MARSHALL [facility]
--- OUTSIDE RECORDS SUMMARY | 2024-10-05 08:25 | XMS_ITS ---
Author Name Department of Vetera Affairs ([place]) Organization [facility] of [facility]a [facility] ([place] Address [address] [place] [address] Care Team Providers Care Gage Designer Name Role Phone CHARMAINE YOUSIF Primary Care [...] Patient's Relationship to Policy [place] MEDICAID MEDICAID [facility] EZRA BUTCH Mar 07, 2017 MEDICAI D [id number] Marilin CHAN PATIENT Selected Encounter This section includes the information on record at [place] for the Encounter. Date/Time Encounter Type Encounter Description Reason Provider Source Oct 31, 2023 10:36 AM FIT SPECTACLES MULTIFOCAL OPTOMETRY ICD-10-CM Z46.0 Encounter for fit/adjst of spectacles and contact lenses ERINN JAY IHTee Encounter Template Text not used by [place] Assessments - Encounter Diagnoses This section includes the primary and secondary diagnoses documented for the Encounter. Date/Time Primary/Secondary Diagnosis Diagnosis Name Provider Source Oct 31, 2023 10:36 AM PRIMARY Encounter for fit/adjst of spectacles and contact lenses RASTA ALDANA [place] [facility] [facility] Social History: Smoking Status (Most current) and Tobacco Use (All prior to encounter date) This section includes the most current, and the historical, smoking and tobacco- related health factors from the [place] facility where the Encounter took place. Current Smoking Status This section includes the most current smoking, or tobacco-related health factor, from the [place] facility where the Encounter took place. Date/Time Current Smoking Status Comment Jef ity Aug 08, 2023 03:57 PM VA-TOBACCO FORMER USER [facility] Tobacco Use History This section includes a history of the smoking, or tobacco-related health factors, that were collected on or before the date of the Encounter. The data comes from the [place] facility where the Encounter took place. Date/Time Smoking Status/Tobacco Use Comment F acility Aug 08, 2023 03:57 PM PR-TOBACCO QUIT 15 YRS OR MORE [facility] Aug 07, 2022 10:00 AM VA-TOBACCO FORMER USER [facility] Aug 07, 2022 10:00 AM PR-TOBACCO QUIT 15 YRS OR MORE [facility] Advance Directives: All historical and current Section Date Range: From patient's date of to the date document was created. This section includes ALL of a patient's completed or amended [place] Advance and Rescinded Directives. The entries below indicate that a directive exists for the patient, but an actual copy is not included with this document. The data comes from all [place] facilities. Date Advance Directives Provider Source Aug 07, 2018 ADVANCE DIRECTIVE FARHAN TOSCANO [facility] Aug 07, 2018 ADVANCE DIRECTIVE STEVE MARSHALL [facility] Encounter Notes: All associated encounter notes This section contains the clinical notes associated to the Encounter. Date/Time Encounter Note(s) Provider Source Oct 31, 2023 10:36 AM OPTOMETRY NOTE: LOCAL TITLE: OPTOMETRY NOTE STANDARD TITLE: OPTOMETRY NOTE DATE OF NOTE: OCT 31, 2023@10:36 ENTRY DATE: OCT 31, 2023@10:36:27 AUTHOR: NEHA THURSTON COSIGNER: URGENCY: STATUS: COMPLETED OPTOMETRY NOTE Has ADDENDA prog photo white The quote provided below is for informational purposes only. Please verify prior to the creation of a purchase order. LEONA CHAN [id number] RX INFORMATION OD +1.75 -1.00 X80 Add:+2.25 Pzm:0.00 Dir: Prz2:0.00 Dir2: OS +1.75 -1.50 X90 Add:+2.25 Pzm:0.00 Dir: Prz2:0.00 Dir2: FITTING INFORMATION FPD: NPD:-3 [place]:R:30.5 L:30.0 SEG HT:R:24 L:24 Tint:None Shade:None VA Billable Items FRAME: FX3 COFFEE 50-20-145 Right Lens: POLY VA PROGRESSIVE PHOTOCHROMIC WHITE 1.586 POLY Left Lens: POLY VA PROGRESSIVE PHOTOCHROMIC WHITE 1.586 POLY KLEAR ANTI-REFLECTIVE COATING prog yellow #2 The quote provided below is for informational purposes only. Please verify prior to the creation of a purchase order. LEONA CHAN 3673 RX INFORMATION OD +1.75 -1.00 X80 Add:+2.25 Pzm:0.00 Dir: Prz2:0.00 Dir2: OS +1.75 -1.50 X90 Add:+2.25 Pzm:0.00 Dir: Prz2:0.00 Dir2: FITTING INFORMATION FPD: NPD: [place]:R:30.5 L:30.0 SEG HT:R:24 L:24 Tint:YELLOW Shade:2 VA Billable Items FRAME: FX3 COFFEE 50-20-145 Right Lens: POLY VA PROGRESSIVE 1.586 POLY Left Lens: POLY VA PROGRESSIVE 1.586 POLY KLEAR ANTI-REFLECTIVE COATING SOLID TINT /norris/ NEHA THURSTON [employer]AC[employer] MEMBER Signed: 10/31/2023 10:36 Receipt Acknowledged By: 10/31/2023 11:27 /norris/ RASTA RIVERA [facility] JOHN 10/31/2023 ADDENDUM STATUS: COMPLETED PDS assistant brand manager fit 2 PAL eyeglasses on 10/30/2023. OPT HT entered consult(s) as requested for provider signature. /norris/ RASTA RIVERA [facility] Signed: 10/31/2023 11:29 NEHA THURSTON CNTRL WSTRN [facility]
--- OUTSIDE RECORDS SUMMARY | 2024-10-05 08:25 | XMS_ITS | Encounter Summary ---
Author Name Department of Vetera Affairs ([place]) Organization Department of [facility] Affairs ([place]) Address [address] [place] [address] Care Team Providers Care Speed Runner Name Role Phone CHARMAINE YOUSIF Primary Care [...] Patient's Relationship to Policy Nevarez MEDICAID MEDICAID [facility] Mar 07, 2017 MEDICAI D [id number] Marilin CHAN PATIENT Selected Encounter This section includes the information on record at [place] for the Encounter. Date/Time Encounter Type Encounter Description Reason Pro vider Source Aug 24, 2024 09:30 AM Outpatient Encounter PRIMARY CARE/MEDICINE IHE Encounter Template Text not used by [place] Plan of Treatment: Future Appointments (+ 6 months) and Future Tests (+/- 45 days) The Plan of Treatment section includes future care activities for the patient from all [place] treatmentfacilities. This section includes future appointments and future orders which are active, pending or scheduled. Future Appointments This section includes appointments that were scheduled to occur 6 months from the date of the Encounter, up to a maximum of 20 appointments. The data comes from all [place] treatment facilities. Appointment Date/Time Appointment Type Appointme nt Facility Name Oct 23, 2024 11:00 AM AMBULATORY - MEDICINE [facility] Nov 02, 2024 01:30 PM AMBULATORY - MEDICINE [facility] Nov 02, 2024 02:00 PM AMBULATORY - MEDICINE [facility] Lab Results: +/- 30 days of the encounter This section includes the Chemistry and Hematology Lab Results on record with [place] for the patient. Radiology Reports and Pathology Reports are provided separately, in subsequent sections. Lab Results This section contains the Chemistry/Hematology Results that were resulted 30 days before or 30 daysafter the date of the Encounter. Date/Time Source Result Type Result - Unit Interpretation Reference Range Comment Aug 24, 2024 08:59 AM [facility] PSA Specimen Type: SERUM No comment entered. Ordering Provider: CHARMAINE PHILLIPS Report Released Date/Time: Aug 18, 2023 11:27 AM Reporting Lab: [address] [address] Performing Lab: [address] [address] PSA 0.90 ng/mL 0.00-4.00 Aug 24, 2024 08:59 AM [facility] BASIC METABOLIC PANEL (fasting) Specime n Type: SERUM No comment entered. Ordering Provider: CHARMAINE PHILLIPS Report Released Date/Time: Aug 18, 2023 11:27 AM Reporting Lab: [address] [address] Performing Lab: [address] [address] UREA NITROGEN 14 mg/dL 7-25 GLUCOSE 97 mg/dL 65-100 SODIUM 142 mmol/L 135-145 POTASSIUM 3.9 mmol/L 3.5-5.0 CHLORIDE 100 mmol/L 100-110 CO2 30 meq/L 20-30 CREATININE, Serum 0.83 mg/dL 0.50-1.40 eGFR(CKD-EPI 2020) >90 mL/min >60 Aug 24, 2024 08:59 AM [facility] LIPID PANEL FASTING Specimen Type: SERUM No comment entered. Ordering Provider: CHARMAINE PHILLIPS Report Released Date/Time: Aug 18, 2023 11:27 AM Reporting Lab: [facility] [address] [facility] [address] Performing Lab: [facility] [address] [facility] [address] CHOLESTEROL 139 mg/dL TRIGLYCERIDE 51 mg/dL 0-150 LDL calculated 77 mg/dL 0-129 CHOL/HDL 2.7 HDL CHOLESTEROL 52 mg/dL 40-60 Aug 24, 2024 08:59 AM [facility] LIVER FUNCTION Specimen Type: SERUM No comment entered. Ordering Provider: CHARMAINE PHILLIPS Report Released Date/Time: Aug 18, 2023 11:27 AM Reporting Lab: [address] [address] Performing Lab: [address] [address] PROTEIN,TOTAL 6.6 g/dL 6.0-8.3 ALBUMIN 3.7 g/dL 3.5-5.0 ALKALINE PHOSPHATASE 108 U/L 40-150 AST 20 U/L 5-34 ALT 27 U/L BILIRUBIN, TOTAL 0.5 mg/dL 0.2-1.2 Aug 24, 2024 08:59 AM [facility] HEMOGLOBIN A1C PANEL Specimen Type: BLOOD Comment: Values obtained from A1C measurements can vary. For atypical A1C assays, a reported value of 7.0 could actually be between 6.72 and 7.28 if measured by a reference method. A reported value of 9.0 could actually be between 8.73 and 9.27. Ref: http://www.ngs p.org/CAPdata. asp Ordering Provider: CHARMAINE PHILLIPS Report Released Date/Time: Aug 18, 2023 11:27 AM Reporting Lab: [address] [address] Performing Lab: [address] [address] HEMOGLOBIN A1C 5.7 H 4.0-5.6 Aug 24, 2024 08:59 AM [facility] TSH Specimen Type: SERUM No comment entered. Ordering Provider: CHARMAINE PHILLIPS Report Released Date/Time: Aug 18, 2023 11:27 AM Reporting Lab: [facility] [address] [facility] [address] Performing Lab: [place] [facility] [address] [facility] [address] TSH 2.14 u[IU]/mL 0.35-5.00 Aug 24, 2024 08:59 AM [facility] MICROALBUMIN CREATININE RATIO PANEL Spe cimen Type: URINE No comment entered. Ordering Provider: CHARMAINE PHILLIPS Report Released Date/Time: Aug 18, 2023 11:27 AM Reporting Lab: [facility] [address] [facility] [address] Performing Lab: [facility]N [facility] [address] [facility] [address] MICROALBUMIN/C REATININE RATIO 74.5 mg/g H 0-29.9 MICROALBUMIN,Q UANTITATIVE 6.6 mg/dL RR UNAVAIL CREATININE URINE 88.60 mg/dL Aug 24, 2024 08:59 AM [facility] CBC AND DIFF (AUTO) Specimen Type: BLOOD No comment entered. Ordering Provider: CHARMAINE PHILLIPS Report Released Date/Time: Aug 18, 2023 11:27 AM Reporting Lab: [facility] [address] [facility] [address] Performing Lab: [facility] [address] [address] WBC 5.41 10*3/uL 4.50-11.00 RBC 4.34 10*6/uL 4.23-5.66 HGB 13.4 g/dL 12.8-17 HCT 39.5 39.2-50.4 MCV 91.0 fL 82-99 MCHC 33.9 g/dL 30.8-35.1 PLT 293 10*3/uL 140-360 RDW-CV 12.7 12.0-16.0 MONO, ABS 0.61 10*3/uL 0.30-1.10 MCH 30.9 pg 26.2-32.6 NEUT % 50.0 43.7-75.8 LYMPH % 34.9 14.0-42.3 MONO % 11.3 5.1-13.7 EOS % 2.8 0.4-6.8 BASO % 0.6 0.1-2.0 NEUT, ABS 2.71 10*3/uL 2.20-7.60 LYMPH, ABS 1.89 10*3/uL 1.00-3.20 EOS, ABS 0.15 10*3/uL 0.03-0.44 BASO, ABS 0.03 10*3/uL 0.01-0.13 IMMATURE GRAN % 0.4 0.0-0.7 IMMATURE GRAN, ABS 0.02 10*3/uL 0.00-0.06 NRBC % 0.0 0.0-0.0 NRBC, ABS 0.00 10*3/uL 0.00-0.00 Aug 24, 2024 08:59 AM [facility] VITAMIN D (25-OH) Specimen Type: SERUM No comment entered. Ordering Provider: CHARMAINE PHILLIPS Report Released Date/Time: Aug 18, 2023 11:27 AM Reporting Lab: [address] [address] Performing Lab: [address] [address] VITAMIN D (25-OH) 66 ng/mL H 20-50 Aug 24, 2024 08:59 AM [facility] URIC ACID Specimen Type: SERUM No comment entered. Ordering Provider: CHARMAINE PHILLIPS Report Released Date/Time: Aug 18, 2023 11:27 AM Reporting Lab: [address] [address] Performing Lab: [address] [address] URIC ACID 6.0 mg/dL 3.5-7.2 Social History: Smoking Status (Most current) and Tobacco Use (All prior to encounter date) This section includes the most current, and the historical, smoking and tobacco- related health factors from the [place] facility where the Encounter took place. Current Smoking Status This section includes the most current smoking, or tobacco-related health factor, from the [place] facility where the Encounter took place. Date/Time Current Smoking Status Comment Facil ity Aug 03, 2021 11:00 AM VA-TOBACCO FORMER USER [facility] Tobacco Use History This section includes a history of the smoking, or tobacco-related health factors, that were collected on or before the date of the Encounter. The data comes from the [place] facility where the Encounter took place. Date/Time Smoking Status/Tobacco Use Comment Greg galeas Aug 03, 2021 11:00 AM VA-TOBACCO QUIT 15 YRS OR MORE [facility] February 04, 2018 02:29 PM VA-TOBACCO FORMER USER [facility] February 04, 2018 02:29 PM VA-TOBACCO QUIT 15 YRS OR MORE [facility] Mar 19, 2017 02:05 PM QUIT TOBACCO USE > 7 YEARS AGO quit in 1999 [facility] Advance Directives: All historical and current Section Date Range: From patient's date of to the date document was created. This section includes ALL of a patient's completed or amended [place] Advance and Rescinded Directives. The entries below indicate that a directive exists for the patient, but an actual copy is not included with this document. The data comes from all [place] facilities. Date Advance Directives Provider Source Aug 07, 2018 ADVANCE DIRECTIVE FARHAN TOSCANO [facility] Aug 07, 2018 ADVANCE DIRECTIVE STEVE MARSHALL [facility] Encounter Notes: All associated encounter notes This section contains the clinical notes associated to the Encounter. Date/Time Encounter Note(s) Provider Source Aug 18, 2024 11:00 AM ADMINISTRATIVE NOT E: LOCAL TITLE: ADMINISTRATIVE NOTE STANDARD TITLE: ADMINISTRATIVE NOTE DATE OF NOTE: AUG 18, 2024@11:00 ENTRY DATE: AUG 18, 2024@11:00:29 AUTHOR: DRAGAN CHU EXP COSIGNER: URGENCY: STATUS: COMPLETED [facility] [address] [place] [phone] * [phone] * LEONA CHAN [address] [place] [address] [address] [place], [place] [address] Date: AUG 18, 2024 re: This is a reminder of your upcoming PCP appt with CHARMAINE YOUSIF. Appointment Date: Aug@09:30 Appointment Type: In-person visit (X)Fasting blood work NON fasting blood work LEFT MESSAGE ON VOICEMAIL TO CONFIRM APPT AND LABWORK Sincerely, Office Staff for: CHARMAINE YOUSIF Primary Care Provider [facility] [address] [place] [phone] T [phone] F [phone] Upcoming Appointments: 08/24/2024 09:30 CWM/SO/PACT 5 11/02/2024 13:30 NHM/OPT/VISUAL IMAGING 11/02/2024 14:00 CWM/NO/OPTOMETRY/MERHAR APPOINTMENT ABBREVIATION CALI (SPOPC OR SO = [address]) (GOPC OR GO = [address]) (NHM or NO = [facility]) (VVC - Video Call) (Tel-X Telephone Visit) ( - Telehealth) /norris/ DRAGAN MCKEON Signed: 08/18/2024 11:01 DRAGAN CHU [facility]
--- OUTSIDE RECORDS SUMMARY | 2024-10-05 08:25 | XMS_ITS ---
Author Name [facility] [place] [facility] [place] [facility] [place] Address [address] [place] [id number] Care Team Providers Care Edge Grinder Machine Name Role Phone CHARMAINE YOUSIF Primary Care [...] Patient's Relationship to Policy [place] MEDICAID MEDICAID JOSSELIN MUNGUIA BUTCH Mar 07, 2017 MEDICAI D [id number] Marilin CHAN PATIENT Selected Encounter This section includes the information on record at [place] for the Encounter. Date/Time Encounter Type Encounter Description Reason Provider Source Jun 19, 2024 09:53 AM OFF/OP EST FEBRUARY X REQ PHY/QHP PRIMARY CARE/MEDICINE ICD-10-CM Z23 Encounter for immunization ANAYA DOUGLAS [facility] Encounter Template Text not used by [place] Assessments - Encounter Diagnoses This section includes the primary and secondary diagnoses documented for the Encounter. Date/Time Primary/Secondary Diagnosis Diagnosis Name Provider Source Jun 19, 2024 09:53 AM PRIMARY Encounter for immunization [facility]OUGL[facility] Plan of Treatment: Future Appointments (+ 6 months) and Future Tests (+/- 45 days) The Plan of Treatment section includes future care activities for the patient [facility] [place] [facility] This section includes future appointments and future [...] 23, 2024 11:00 AM AMBULATORY - MEDICINE [facility] Nov 02, 2024 01:30 PM [facility] Nov 02, 2024 02:00 PM AMBULATORY MEDICINE [facility] Immunizations: All administered on the encounter date This section contains immunizations associated to the Encounter. Immunization Series Date Issued Reaction Comments INFLUENZA, HIGH-DOSE, TRIVALENT, PF Jun 19 Social History: Smoking Status (Most current) and [...] Facil ity Aug 08, 2023 03:57 PM [place]-TOBACCO QUIT 15 YRS OR MORE [facility] Tobacco Use History This section includes a history of the smoking, or tobacco-related health factors, that were collected on or before the date of the Encounter. The data comes from the [place] facility where the Encounter took place. Date/Time Smoking Status/Tobacco Use Comment F acility Aug 08, 2023 03:57 PM [place]-TOBACCO QUIT 15 YRS OR MORE [facility] Aug 07, 2022 10:00 AM [place]-TOBACCO FORMER USER [facility] Aug 07, 2022 10:00 AM [place]-TOBACCO QUIT 15 YRS OR MORE [facility] Advance Directives: All historical and current Section [...] Aug 07, 2018 ADVANCE DIRECTIVE FARHAN TOSCANO [facility] Aug 07, 2018 ADVANCE DIRECTIVE STEVE MARSHALL [facility] Encounter Notes: All associated encounter notes This section contains the clinical notes associated to the Encounter. Date/Time Encounter Note(s) Provider Source Jun 19, 2024 09:53 AM PREVENTIVE MEDICIN E NURSING NOTE: LOCAL TITLE: CLINICAL REMINDERS/NURSING STANDARD TITLE: PREVENTIVE MEDICINE NURSING NOTE DATE OF NOTE: JUN 19, 2024@09:53 ENTRY DATE: JUN 19, 2024@09:53:17 AUTHOR: NAVA DOUGLAS EXP COSIGNER: URGENCY: STATUS: COMPLETED Influenza Immunization: Influenza, High-Dose, Trivalent, Preservative Free (Fluzone-Syringe) Administered: INFLUENZA, HIGH-DOSE, TRIVALENT, PF Date Administered: Jun 19, 2024 09:53 Goodwill Ambassador: SANOFI PASTEUR Lot: [id number] Exp Date: Apr 05, 2025 [facility]: [id number] Admin Route/Site: INTRAMUSCULAR/LEFT DELTOID Dosage: 0.5mL Vaccine Information Statement(s): INFLUENZA(FLU) VACC(INACTIVATED OR RECOMBINANT)VIS May 12, 2021 ([place]) Order By: Policy Administered By: Mishel Mathews The Influenza Vaccine Information Statement (VIS) was reviewed with the patient/caregiver which lists the benefits and risks of the vaccine and the risks of not receiving the Influenza vaccine. The patient/caregiver denied any prior severe reaction to this vaccine or its components or a severe allergic reaction, such as anaphylaxis, to any vaccine or any injectable therapy. The patient/caregiver gave verbal consent to receive the vaccine. /norris/ Nava Douglas RN Med Rehab Signed: 06/19/2024 09:54 NAVA DOUGLAS [facility]
[2024-10-05 08:29] LABS: MANUAL DIFF FLAG NO
[2024-10-05 08:45] LABS: Basophils Percent Auto 0.2 % (0-2); Eosinophils Percent Auto 0.2 % (0-4); Hematocrit 36.4 % (42.0-52.0); Hemoglobin 12.6 g/dl (14.0-18.0); Imm Gran Abs Auto 0.04 X10*3/uL (0.00-0.03); Imm Gran Pct Auto 0.4 % (0.0-0.4); Lymphocytes Absolute Auto 2.7 X10*3/uL (1.2-4.9); Lymphocytes Percent Auto 29.3 % (20-40); Mean Corpuscular HGB Conc 34.6 g/dl (31.0-36.0); Mean Corpuscular Hemoglobin 31.5 pg (27.0-33.0); Mean Platelet Volume 10.9 fL (9.4-12.4); Monocytes Absolute Auto 0.8 X10*3/uL (0.1-1.2); Monocytes Percent Auto 8.4 % (2-11); Neutrophils Absolute Auto 5.6 x10*3/uL (2.0-8.3); Neutrophils Percent Auto 61.5 % (45-73); Platelet Count 283 X10*3/uL (160-400); Red Cell Distribution Width 13.5 % (11.0-16.0); White Blood Count 9.2 X10*3/uL (4.8-10.8)
[2024-10-05 09:12] LABS: Anion Gap 12 (12-20); Blood Urea Nitrogen 12 mg/dL (9-16); Calcium 9.2 mg/dL (8.4-10.2); Carbon Dioxide 30 mmol/L (22-29); Chloride 103 mmol/L (96-108); Estimated Glomerular Filt Rate > 60; Glucose Random 91 mg/dL (60-115); Potassium 3.3 mmol/L (3.3-5.1); Sodium 142 mmol/L (135-145)
[2024-10-05 09:39] LABS: Prostate Specific Antigen 1.49 ng/mL (<0.05-4.0)
== END 2024-10-05 08:22 | disposition home or self-care (01) ==
LOC: HO.LAB 08:21
PROVIDERS: PCP Internal Medicine Geriatric Medicine; Visit Provider Internal Medicine Geriatric Medicine
DX: M10.9 Gout, unspecified (principal); I25.10 Atherosclerotic heart disease of native coronary artery without angina pectoris; Z12.5 Encounter for screening for malignant neoplasm of prostate
CPT/HCPCS: 36415; 80048; 84153; 84550; 85025

== ENCOUNTER 2024-10-08 10:56 | Outpatient (REF) | payer MEDICAID, SELFPAY ==
[2023-01-17 08:09] VITALS: BP 108/70; BP 112/76; BP 118/70; BMI 34.0
--- OUTSIDE RECORDS SUMMARY | 2024-10-08 11:46 | XMS_ITS | Continuity of Care Document ---
Author Organization [facility] Odna brandan Address [address] [place] [address] [place] [address]- Care Team Providers Care Paradichlorobenzene Machine Operator Name Role Phone Name Emmanuel SANTA Primary Care Physician Encounter [facility] Date(s): 09/07/24 - 10/07/24 [facility] [address] [place] [address] [address] [place], [place] [address] Encounter Type: Triage Allergies, Adverse Reactions, Alerts No Known Allergies Immunizations Given and Recorded Vaccine Date Status Refusal Reason influenza virus vaccine, inactivated 06/26/22 James rded influenza virus vaccine, inactivated 06/11/21 James rded influenza virus vaccine, inactivated 05/11/20 James rded influenza virus vaccine, inactivated 06/02/19 James rded influenza virus vaccine, inactivated 06/26/18 James rded influenza virus vaccine, inactivated 06/21/17 James rded SARS-CoV-2 mRNA ([id number]) vax 03/13/22 Recorded SARS-CoV-2 (COVID-19) mRNA BNT-162b2 vac 08/21/21 Recorded pneumococcal 23-valent vaccine 08/03/21 Recorded SARS-CoV-2 (COVID-19) mRNA-1273 vaccine 01/06/21 R ecorded SARS-CoV-2 (COVID-19) mRNA-1273 vaccine 12/09/20 R ecorded tetanus/diphtheria/pertussis, acel(Tdap) 05/11/20 Recorded tetanus/diphtheria/pertussis, acel(Tdap) 07/10/17 Recorded zoster vaccine, inactivated 05/23/19 Recorded zoster vaccine, inactivated 03/09/19 Recorded Medications allopurinol 100 mg oral tablet 100 mg, 1, tablet, By Mouth, Daily, # 30 tablet, Refills 0, Maintenance, 09/03/22 2:33:00 PM EST, Partial fill upon patient request if the prescription is for a schedule II opioid drug. Start Date: 09/03/22 Status: Ordered Quantity: 30.0 Unit: tablet Repeat number: 1 amLODIPine 5 mg oral tablet 5 mg, 1, tablet, By Mouth, Daily, Refills 0, Maintenance, 04/10/22 9:23:00 AM EDT, Partial fill upon patient request if the prescription is for a schedule II opioid drug. Start Date: 04/10/22 Status: Ordered Repeat number: 1 aspirin 81 mg oral delayed release tablet 1 tablet = 81 mg, By Mouth, Daily, 0 Refills, Maintenance, 04/10/22 9:24:00 AM EDT, Partial fill uponpatient request if the prescription is for a schedule II opioid drug. Start Date: 04/10/22 Status: Ordered Repeat number: 1 atorvastatin 80 mg oral tablet 1 tablet = 80 mg, By Mouth, Daily, 0 Refills, Maintenance, 04/10/22 9:23:00 AM EDT, Partial fill uponpatient request if the prescription is for a schedule II opioid drug. Start Date: 04/10/22 Status: Ordered Repeat number: 1 carvedilol 3.125 mg oral tablet 3.125 mg, 1, tablet, By Mouth, 2 times a day, Refills 0, Maintenance, 09/03/22 9:47:00 AM EST, Partial fill upon patient request if the prescription is for a schedule II opioid drug. Start Date: 09/03/22 Status: Ordered Repeat number: 1 colchicine 0.6 mg oral capsule 1 capsule = 0.6 mg, By Mouth, Daily, # 30 capsule, 0 Refills, Maintenance, 09/03/22 9:46:00 AM EST,Capsule, Partial fill upon patient request if the prescription is for a schedule II opioid drug. Start Date: 09/03/22 Status: Ordered Quantity: 30.0 Unit: capsule Repeat number: 1 Vitamin B12 1000 mcg oral tablet 1 tablet = 1,000 mcg, By Mouth, Daily, 0 Refills, Maintenance, 04/10/22 9:26:00 AM EDT, Partial fill upon patient request if the prescription is for a schedule II opioid drug. Start Date: 04/10/22 Status: Ordered Repeat number: 1 Problem List Condition Confirmation Course Effective Dates Status H ealth Status Informant CAD (coronary artery disease) Confirmed Active Hyperlipidemia Confirmed Active Hypertension Confirmed Active Current nicotine use Confirmed Active Obese class I Confirmed Active Right internal carotid occlusion Confirmed Active Social History Social History Type Response Smoking Status Former smoker, quit more than 30 days ago entered on: 04/18/23 Sex Sex Representation Male (finding) Patient Care team information Care Team Personnel Name: Emmanuel Menjivar MD Position: [facility] Outreach Member Role: PCP Address: [address] [place] [address] Telecom: Name: Damaso AQUINO, Taya Martin Position: [facility] RN Member Role: Primary Care Nurse Care Team Related Persons Name: TAMARA CHAN Name: ARMANDO CHAN JR Insurance Providers Guarantor name[facility] Information #: 1 Payer: [employer] Member Number: NA Policy Number: NA Group Number: NA
--- OUTSIDE RECORDS SUMMARY | 2024-10-08 11:46 | XMS_ITS | Continuity of Care Document ---
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 It does not include entries that were removed or entered in error. Problem Status Onset Date Problem Type Date of Resolution Comments Source Aneurysm of ascending aorta Active Condition Aug 18, 2023 Entered By: CHARMAINE PHILLIPS Comment: s/p repair 09/2022 [place] CAD - Coronary Artery Disease (SCT [id number]) Active Condition Aug 18, 2023 Entered By: CHARMAINE PHILLIPS Comment: (s/p CABGx3 09/2022 [place] Cerebral infarction due to stenosis of carotid artery Active Condition Aug 06, 2021 Entered By: CHARMAINE PHILLIPS Comment: YUE stenosis [facility] co-managed Active Condition Jan 14 Entered By: JAVON BRUMFIELD Comment: pcp----Dr. Tasha Jerez---[facility] hospital---(t) [phone] (f) [phone] [facility] Cotton wool spots Active Condition [facility] Essential hypertension Active Condition Aug 02, 2021 Entered By: CHARMAINE PHILLIPS Comment: #ECHO 2017 LVH EF 66%, grade I diastolic dysfunction [facility] Gout Active Condition [place] History of cerebrovascular accident Active Condition [facility] Hyperlipidemia Active Condition [facility] Obesity (SCT 701913926) Active Condition [place] Peripheral vascular disease Active Condition [facility] Raynaud's phenomenon Active Condition [place] Diagnosis: ICD-10-CM Z23 Encounter for immunization Active Diagnosis [facility] Diagnosis: ICD-10-CM Z46.0 Encounter for fit/adjst of spectacles and contact lenses Active Diagnosis [facility] Diagnosis: ICD-10-CM H25.13 Age-related nuclear cataract, bilateral Active Diagnosis [facility] Diagnosis: ICD-10-CM E66.9 Obesity, unspecified Active Diagnosis [place] Medications Combined list of outpatient medications from Department of Defense and Veterans Affairs facilities.Medications provided include 1) outpatient medications from the last 15 months, and 2) patient-reported medications. Medication Details Route Status Patient Instructions Prescription Expires Prescription Number Last Dispense Date Ordering Provider Order Date Order Qty Source ALLOPURINOL 100MG TAB TAKE TWO TABLETS BY MOUTH ONCE DAILY ORAL ACTIVE NADAZDINCHARMAINE MOTLEY 2022 [facility] IELD AMLODIPINE BESYLATE 10MG TAB TAKE ONE TABLET BY MOUTH ONCE DAILY ORAL ACTIVE NADCHARMAINE JARAMILLO 2022 [facility] IELD AMOXICILLIN TRIHYDRATE 500MG CAP TAKE 4 CAPSULES BY MOUTH ONCE DAILY NEEDED ORAL ACTIVE NADAZCHARMAINE NORMAN 2022 [facility] IELD ASPIRIN 81MG TAB,EC TAKE ONE TABLET BY MOUTH QD ORAL ACTIVE NADCHARMAINE JARAMILLO 2022 [facility] IELD ATORVASTATI N CA 80MG TAB TAKE ONE TABLET BY MOUTH QD ORAL ACTIVE NADCHARMAINE JARAMILLO 2022 [facility] IELD CARVEDILOL 3.125MG TAB TAKE ONE TABLET BY MOUTH TWICE DAILY ORAL ACTIVE CHARMAINE BOSTON 2022 [facility] IELD CYANOCOBALA MIN 1000MCG TAB TAKE ONE TABLET BY MOUTH ONCE DAILY ORAL ACTIVE CHARMAINE BOSTON 2022 [facility] IELD Immunizations Combined list of available immunizations from the Department of Defense and Veterans Affairs facilities. Immunization Series Date Given Administered By Site Reaction Lot Number CVX Code Drug Acid Adjuster Status Comments Source INFLUENZA, HIGH-DOSE, TRIVALENT, PF 09/13/ 202BONNY BUSTILLO LEFT DELTO ID [id number] 135 complet ed [facility] INFLUENZA, UNSPECIFIED FORMULATION [address] [facility] COVID-19 (MODERNA), MRNA, LNP-S, PF, 100 MCG/0.5 ML DOSE 2 2020 207 complet ed MOD; [id number]; 1 [facility] COVID-19 (MODERNA), MRNA, LNP-S, PF, 100 MCG/0.5 ML DOSE 1 2020 207 complet ed MOD; [id number]; 1 [facility] ZOSTER RECOMBINANT 2018 187 complet ed [facility] ZOSTER RECOMBINANT 2018 187 complet ed [facility] INFLUENZA, INJECTABLE, QUADRIVALENT, PRESERVATIVE FREE 2017 150 complet ed Partner: [facility]. Administe red by: [facility] Clinician (NPI=Not Provided) . Partner 9 Lot#: [id number] Mfr: GlaxoSmit hKline [facility] TDAP 2016 115 complet ed [facility] INFLUENZA, SEASONAL, INJECTABLE 2016 141 complet ed Site: Left Deltoid [facility] Results Combined list of recent chemistry, [...] Aug 18, 2023 11:27 AM Reporting Lab: [address] [address] Performing Lab: [address] [address] [employer] BASIC METABOLIC PANEL (fasting) UREA NITROGEN [MASS/VOLUM E] IN SERUM OR PLASMA 14 mg/dL 7 - 25 08/24 Specimen Type: SERUM No comment entered. Ordering Provider: AMOL PEDERSON Report Released Date/Time: Aug 18, 2023 11:27 AM Reporting Lab: [address] [address] Performing Lab: [address] [address] [place] BASIC METABOLIC PANEL (fasting) GLUCOSE [MASS/VOLUM E] IN SERUM OR PLASMA 97 mg/dL 65 - 100 08/24 Specimen Type: SERUM No comment entered. Ordering Provider: AMOL PEDERSON Report Released Date/Time: Aug 18, 2023 11:27 AM Reporting Lab: [address] [address] Performing Lab: [address] [address] [employer] [place] BASIC METABOLIC PANEL (fasting) SODIUM [MOLES/VOLU ME] IN SERUM OR PLASMA 142 mmol/L 135 - 145 08/24 Specimen Type: SERUM No comment entered. Ordering Provider: AMOL PEDERSON Report Released Date/Time: Aug 18, 2023 11:27 AM Reporting Lab: [facility] [address] [facility] [address] Performing Lab: [facility] [address] [facility] [address] [place] BASIC METABOLIC PANEL (fasting) POTASSIUM [MOLES/VOLU ME] IN SERUM OR PLASMA 3.9 mmol/L 3.5 - 5.0 08/24 Specimen Type: SERUM No comment entered. Ordering Provider: AMOL PEDERSON Report Released Date/Time: Aug 18, 2023 11:27 AM Reporting Lab: [facility] [address] Performing Lab: [facility] TRN [address] [address] [place] BASIC METABOLIC PANEL (fasting) CHLORIDE [MOLES/VOLU ME] IN SERUM OR PLASMA 100 mmol/L 100 - 110 08/24 Specimen Type: SERUM No comment entered. Ordering Provider: AMOL PEDERSON Report Released Date/Time: Aug 18, 2023 11:27 AM Reporting Lab: [facility] [address] Performing Lab: [facility] TRN [facility] [address] [place] BASIC METABOLIC PANEL (fasting) CARBON DIOXIDE, TOTAL [MOLES/VOLU ME] IN SERUM OR PLASMA 30 meq/L 20 - 30 08/24 Specimen Type: SERUM No comment entered. Ordering Provider: AMOL PEDERSON Report Released Date/Time: Aug 18, 2023 11:27 AM Reporting Lab: [facility] [address] [facility] [address] Performing Lab: [facility] TRN [facility] [address] [place] BASIC METABOLIC PANEL (fasting) CREATININE [MASS/VOLUM E] IN SERUM OR PLASMA 0.83 mg/dL 0.50 - 1.40 08/24 Specimen Type: SERUM No comment entered. Ordering Provider: AMOL PEDERSON Report Released Date/Time: Aug 18, 2023 11:27 AM Reporting Lab: [facility] [address] [address] Performing Lab: [facility] [address] [address] [place] BASIC METABOLIC PANEL (fasting) GLOMERULAR FILTRATION RATE/1.73 SQ M.PREDICTED [VOLUME RATE/AREA] IN SERUM, PLASMA OR BLOOD BY CREATININE- BASED FORMULA (CKD-EPI 2020) >90mL/ min 60 08/24 Specimen Type: SERUM No comment entered. Ordering Provider: AMOL PEDERSON Report Released Date/Time: Aug 18, 2023 11:27 AM Reporting Lab: [facility] [address] [address] Performing Lab: [facility] [address] [address] [place] LIPID PANEL FASTING CHOLESTEROL [MASS/VOLUM E] IN SERUM OR PLASMA 139 mg/dL 08/24 Specimen Type: SERUM No comment entered. Ordering Provider: AMOL PEDERSON Report Released Date/Time: Aug 18, 2023 11:27 AM Reporting Lab: [facility] [address] Performing Lab: [facility]PITALN [facility] [address] [place] LIPID PANEL FASTING TRIGLYCERID E [MASS/VOLUM E] IN SERUM OR PLASMA 51 mg/dL 0 - 150 08/24 Specimen Type: SERUM No comment entered. Ordering Provider: AMOL PEDERSON Report Released Date/Time: Aug 18, 2023 11:27 AM Reporting Lab: [facility] [address] [address] Performing Lab: [facility] [address] [facility] [address] [place] LIPID PANEL FASTING CHOLESTEROL IN LDL [MASS/VOLUM E] IN SERUM OR PLASMA BY CALCULATION 77 mg/dL 0 - 129 08/24 Specimen Type: SERUM No comment entered. Ordering Provider: AMOL PEDERSON Report Released Date/Time: Aug 18, 2023 11:27 AM Reporting Lab: [facility] [address] [address] Performing Lab: [facility] [address] [place] LIPID PANEL FASTING CHOLESTEROL .TOTAL/CHOL ESTEROL IN HDL [MASS RATIO] IN SERUM OR PLASMA 2.7 08/24 Specimen Type: SERUM No comment entered. Ordering Provider: AMOL PEDERSON Report Released Date/Time: Aug 18, 2023 11:27 AM Reporting Lab: [facility] [address] [address] Performing Lab: [facility] [address] [address] [place] LIPID PANEL FASTING CHOLESTEROL IN HDL [MASS/VOLUM E] IN SERUM OR PLASMA 52 mg/dL 40 - 60 08/24 Specimen Type: SERUM No comment entered. Ordering Provider: AMOL PEDERSON Report Released Date/Time: Aug 18, 2023 11:27 AM Reporting Lab: [facility] [address] [address] Performing Lab: [facility]N [facility] [address] [place] LIVER FUNCTION PROTEIN [MASS/VOLUM E] IN SERUM OR PLASMA 6.6 g/dL 6.0 - 8.3 08/24 Specimen Type: SERUM No comment entered. Ordering Provider: AMOL PEDERSON Report Released Date/Time: Aug 18, 2023 11:27 AM Reporting Lab: [facility] [address] [address] Performing Lab: [facility] [place] [facility] [address] [facility] [address] [place] LIVER FUNCTION ALBUMIN [MASS/VOLUM E] IN SERUM OR PLASMA 3.7 g/dL 3.5 - 5.0 08/24 Specimen Type: SERUM No comment entered. Ordering Provider: AMOL PEDERSON Report Released Date/Time: Aug 18, 2023 11:27 AM Reporting Lab: [facility] [place] [facility] [address] [facility] [address] Performing Lab: [facility]RL TRN [facility] [address] [place] LIVER FUNCTION ALKALINE PHOSPHATASE [ENZYMATIC ACTIVITY/VO LUME] IN SERUM OR PLASMA 108 U/L 40 - 150 08/24 Specimen Type: SERUM No comment entered. Ordering Provider: AMOL PEDERSON Report Released Date/Time: Aug 18, 2023 11:27 AM Reporting Lab: [facility] [place] [facility] [address] [facility] [address] Performing Lab: [facility]RL TRN [facility] [address] [address] [place] LIVER FUNCTION ASPARTATE AMINOTRANSF ERASE [ENZYMATIC ACTIVITY/VO LUME] IN SERUM OR PLASMA 20 U/L 5 - 34 08/24 Specimen Type: SERUM No comment entered. Ordering Provider: AMOL PEDERSON Report Released Date/Time: Aug 18, 2023 11:27 AM Reporting Lab: [facility] [place] [facility] [address] [facility] [address] Performing Lab: [facility]RL TRN [facility] [address] [address] [place] LIVER FUNCTION ALANINE AMINOTRANSF ERASE [ENZYMATIC ACTIVITY/VO LUME] IN SERUM OR PLASMA 27 U/L 08/24 Specimen Type: SERUM No comment entered. Ordering Provider: AMOL PEDERSON Report Released Date/Time: Aug 18, 2023 11:27 AM Reporting Lab: [facility] [place] [facility] [address] [facility] [address] Performing Lab: [facility] [place] [facility] [address] [facility] [address] [place] LIVER FUNCTION BILIRUBIN.T OTAL [MASS/VOLUM E] IN SERUM OR PLASMA 0.5 mg/dL 0.2 - 1.2 08/24 Specimen Type: SERUM No comment entered. Ordering Provider: AMOL PEDERSON Report Released Date/Time: Aug 18, 2023 11:27 AM Reporting Lab: [facility] [place] [address] [address] Performing Lab: [facility] [place] [address] [address] [place] HEMOGLOBI N A1C PANEL HEMOGLOBIN [...] AM Reporting Lab: [facility] [place] [address] [address] Performing Lab: [facility] [place] [address] [address] [place] TSH THYROTROPIN [UNITS/VOLU ME] IN SERUM OR PLASMA 2.14 u[IU]/ mL 0.35 - 5.00 08/24 Specimen Type: SERUM No comment entered. Ordering Provider: AMOL PEDERSON Report Released Date/Time: Aug 18, 2023 11:27 AM Reporting Lab: [facility] [place] [address] [address] Performing Lab: [facility] [place] [facility] [address] [facility] [address] [place] CBC AND DIFF (AUTO) LEUKOCYTES [#/VOLUME] IN BLOOD BY AUTOMATED COUNT 5.41 10*3/u L 4.50 - 11.00 08/24 Specimen Type: BLOOD No comment entered. Ordering Provider: AMOL PEDERSON Report Released Date/Time: Aug 18, 2023 11:27 AM Reporting Lab: [facility]N [place] [address] [address] Performing Lab: [facility]ITALRSEARCY HOSPITALTRN [facility] [address] [address] [place] CBC AND DIFF (AUTO) ERYTHROCYTE S [#/VOLUME] IN BLOOD BY AUTOMATED COUNT 4.34 10*6/u L 4.23 - 5.66 08/24 Specimen Type: BLOOD No comment entered. Ordering Provider: AMOL PEDERSON Report Released Date/Time: Aug 18, 2023 11:27 AM Reporting Lab: [facility]N [place] [address] [address] Performing Lab: [facility]ITALREASTPO[facility]ITALN [place] [address] [address] [place] CBC AND DIFF (AUTO) HEMOGLOBIN [MASS/VOLUM E] IN BLOOD 13.4 g/dL 12.8 - 17 08/24 Specimen Type: BLOOD No comment entered. Ordering Provider: AMOL PEDERSON Report Released Date/Time: Aug 18, 2023 11:27 AM Reporting Lab: [facility]N [place] [address] [address] Performing Lab: [facility]ITALREASTPOINTE HOSPITALN [facility]ENTERCHUSETS [address] [address] [place] CBC AND DIFF (AUTO) HEMATOCRIT [VOLUME FRACTION] OF BLOOD BY AUTOMATED COUNT 39.5 39.2 - 50.4 08/24 Specimen Type: BLOOD No comment entered. Ordering Provider: AMOL PEDERSON Report Released Date/Time: Aug 18, 2023 11:27 AM Reporting Lab: [place] [facility] [place] [facility] [address] [facility] [address] Performing Lab: [place] [facility] [place] [facility] [address] [facility] [address] [place] CBC AND DIFF (AUTO) MCV [ENTITIC VOLUME] BY AUTOMATED COUNT 91.0 fL 82 - 99 08/24 Specimen Type: BLOOD No comment entered. Ordering Provider: AMOL PEDERSON Report Released Date/Time: Aug 18, 2023 11:27 AM Reporting Lab: [place] [facility] [place] [facility] [address] [facility] [address] Performing Lab: [facility] [place] [facility] [address] [facility] [address] [place] CBC AND DIFF (AUTO) MCHC [MASS/VOLUM E] BY AUTOMATED COUNT 33.9 g/dL 30.8 - 35.1 08/24 Specimen Type: BLOOD No comment entered. Ordering Provider: AMOL PEDERSON Report Released Date/Time: Aug 18, 2023 11:27 AM Reporting Lab: [facility] [place] [facility] [address] [facility] [address] Performing Lab: [facility] [place] [facility] [address] [facility] [address] [place] CBC AND DIFF (AUTO) PLATELETS [#/VOLUME] IN BLOOD BY AUTOMATED COUNT 293 10*3/u L 140 - 360 08/24 Specimen Type: BLOOD No comment entered. Ordering Provider: AMOL PEDERSON Report Released Date/Time: Aug 18, 2023 11:27 AM Reporting Lab: [facility] [place] [facility] [address] [facility] [address] Performing Lab: [place] [facility] [place] [address] [address] [place] CBC AND DIFF (AUTO) ERYTHROCYTE DISTRIBUTIO N WIDTH [RATIO] BY AUTOMATED COUNT 12.7 12.0 - 16.0 08/24 Specimen Type: BLOOD No comment entered. Ordering Provider: NADAMOL DEVLIN Report Released Date/Time: Aug 18, 2023 11:27 AM Reporting Lab: [facility] [place] [address] [address] Performing Lab: [facility] [place] [address] [address] [place] CBC AND DIFF (AUTO) MONOCYTES [#/VOLUME] IN BLOOD BY AUTOMATED COUNT 0.61 10*3/u L 0.30 - 1.10 08/24 Specimen Type: BLOOD No comment entered. Ordering Provider: AMOL PEDERSON Report Released Date/Time: Aug 18, 2023 11:27 AM Reporting Lab: [facility] [place] [address] [address] Performing Lab: [facility] [place] [address] [address] [place] CBC AND DIFF (AUTO) MCH [ENTITIC MASS] BY AUTOMATED COUNT 30.9 pg 26.2 - 32.6 08/24 Specimen Type: BLOOD No comment entered. Ordering Provider: AMOL PEDERSON Report Released Date/Time: Aug 18, 2023 11:27 AM Reporting Lab: [facility] [place] [address] [address] Performing Lab: [facility] [place] [address] [address] [place] CBC AND DIFF (AUTO) NEUTROPHILS /100 LEUKOCYTES IN BLOOD BY AUTOMATED COUNT 50.0 43.7 - 75.8 08/24 Specimen Type: BLOOD No comment entered. Ordering Provider: AMOL PEDERSON Report Released Date/Time: Aug 18, 2023 11:27 AM Reporting Lab: [facility] [place] [address] [address] Performing Lab: [facility] [place] [address] [address] [place] CBC AND DIFF (AUTO) LYMPHOCYTES /100 LEUKOCYTES IN BLOOD BY AUTOMATED COUNT 34.9 14.0 - 42.3 08/24 Specimen Type: BLOOD No comment entered. Ordering Provider: AMOL PEDERSON Report Released Date/Time: Aug 18, 2023 11:27 AM Reporting Lab: [facility] [place] [facility] [address] [facility] [address] Performing Lab: [facility] [address] [facility] [address] [place] CBC AND DIFF (AUTO) MONOCYTES/1 00 LEUKOCYTES IN BLOOD BY AUTOMATED COUNT 11.3 5.1 - 13.7 08/24 Specimen Type: BLOOD No comment entered. Ordering Provider: AMOL PEDERSON Report Released Date/Time: Aug 18, 2023 11:27 AM Reporting Lab: [facility] [address] [address] Performing Lab: [place] [facility] [address] [address] [place] CBC AND DIFF (AUTO) EOSINOPHILS /100 LEUKOCYTES IN BLOOD BY AUTOMATED COUNT 2.8 0.4 - 6.8 08/24 Specimen Type: BLOOD No comment entered. Ordering Provider: AMOL PEDERSON Report Released Date/Time: Aug 18, 2023 11:27 AM Reporting Lab: [facility] [address] [address] Performing Lab: [facility] [place] [address] [address] [place] CBC AND DIFF (AUTO) BASOPHILS/1 00 LEUKOCYTES IN BLOOD BY AUTOMATED COUNT 0.6 0.1 - 2.0 08/24 Specimen Type: BLOOD No comment entered. Ordering Provider: AMOL PEDERSON Report Released Date/Time: Aug 18, 2023 11:27 AM Reporting Lab: [facility] [place] [address] [address] Performing Lab: [facility] [address] [address] [place] CBC AND DIFF (AUTO) NEUTROPHILS [#/VOLUME] IN BLOOD BY AUTOMATED COUNT 2.71 10*3/u L 2.20 - 7.60 08/24 Specimen Type: BLOOD No comment entered. Ordering Provider: AMOL PEDERSON Report Released Date/Time: Aug 18, 2023 11:27 AM Reporting Lab: [facility]RL [facility]N [facility] [address] Performing Lab: [place] [facility] [address] [address] [place] CBC AND DIFF (AUTO) LYMPHOCYTES [#/VOLUME] IN BLOOD BY AUTOMATED COUNT 1.89 10*3/u L 1.00 - 3.20 08/24 Specimen Type: BLOOD No comment entered. Ordering Provider: AMOL PEDERSON Report Released Date/Time: Aug 18, 2023 11:27 AM Reporting Lab: [facility] [address] [address] Performing Lab: [place] [facility] [address] [address] [place] CBC AND DIFF (AUTO) EOSINOPHILS [#/VOLUME] IN BLOOD BY AUTOMATED COUNT 0.15 10*3/u L 0.03 - 0.44 08/24 Specimen Type: BLOOD No comment entered. Ordering Provider: AMOL PEDERSON Report Released Date/Time: Aug 18, 2023 11:27 AM Reporting Lab: [place] [facility] [address] [address] Performing Lab: [facility] [address] [address] [place] CBC AND DIFF (AUTO) BASOPHILS [#/VOLUME] IN BLOOD BY AUTOMATED COUNT 0.03 10*3/u L 0.01 - 0.13 08/24 Specimen Type: BLOOD No comment entered. Ordering Provider: AMOL PEDERSON Report Released Date/Time: Aug 18, 2023 11:27 AM Reporting Lab: [place] [facility] [address] [address] Performing Lab: [place] [facility] [facility] [address] [facility] [address] [place] CBC AND DIFF (AUTO) IMMATURE GRANULOCYTE S/100 LEUKOCYTES IN BLOOD BY AUTOMATED COUNT 0.4 0.0 - 0.7 08/24 Specimen Type: BLOOD No comment entered. Ordering Provider: AMOL PEDERSON Report Released Date/Time: Aug 18, 2023 11:27 AM Reporting Lab: [facility] [address] [address] Performing Lab: [facility]N [facility] [address] [place] CBC AND DIFF (AUTO) IMMATURE GRANULOCYTE S [#/VOLUME] IN BLOOD 0.02 10*3/u L 0.00 - 0.06 08/24 Specimen Type: BLOOD No comment entered. Ordering Provider: AMOL PEDERSON Report Released Date/Time: Aug 18, 2023 11:27 AM Reporting Lab: [facility] [address] [address] Performing Lab: [facility] [address] [place] CBC AND DIFF (AUTO) NRBC % 0.0 0.0 - 0.0 08/24 Specimen Type: BLOOD No comment entered. Ordering Provider: AMOL PEDERSON Report Released Date/Time: Aug 18, 2023 11:27 AM Reporting Lab: [facility] [address] Performing Lab: [facility] [address] [place] CBC AND DIFF (AUTO) NRBC, ABS 0.00 10*3/u L 0.00 - 0.00 08/24 Specimen Type: BLOOD No comment entered. Ordering Provider: AMOL PEDERSON Report Released Date/Time: Aug 18, 2023 11:27 AM Reporting Lab: [facility] [address] [facility] [address] Performing Lab: [facility] [address] [facility] [address] [place] MICROALBU MIN CREATININ E RATIO PANEL MICROALBUMI N/CREATININ E [MASS RATIO] IN URINE 74.5 mg/g 0 - 29.9 08/24 H Specimen Type: URINE No comment entered. Ordering Provider: AMOL PEDERSON Report Released Date/Time: Aug 18, 2023 11:27 AM Reporting Lab: [facility] [address] [facility] [address] Performing Lab: [facility] [address] [address] [place] MICROALBU MIN CREATININ E RATIO PANEL MICROALBUMI N [MASS/VOLUM E] IN URINE 6.6 mg/dL 08/24 Specimen Type: URINE No comment entered. Ordering Provider: AMOL PEDERSON Report Released Date/Time: Aug 18, 2023 11:27 AM Reporting Lab: [facility] [address] [facility] [address] Performing Lab: [facility] [address] [facility] [address] [place] MICROALBU MIN CREATININ E RATIO PANEL CREATININE [MASS/VOLUM E] IN URINE 88.60 mg/dL 08/24 Specimen Type: URINE No comment entered. Ordering Provider: AMOL PEDERSON Report Released Date/Time: Aug 18, 2023 11:27 AM Reporting Lab: [facility] [address] [facility] [address] Performing Lab: [facility] [address] [address] [place] URIC ACID URATE [MASS/VOLUM E] IN SERUM OR PLASMA 6.0 mg/dL 3.5 - 7.2 11/18 /2024 Specimen Type: SERUM No comment entered. Ordering Provider: AMOL PEDERSON Report Released Date/Time: Aug 18, 2023 11:27 AM Reporting Lab: [place] [facility] [facility] [address] [facility] [address] Performing Lab: [place] [facility] [place] [facility] [address] [facility] [address] [place] VITAMIN D (25-OH) 25-HYDROXYV ITAMIN D3 [MASS/VOLUM E] IN SERUM OR PLASMA 66 ng/mL 20 - 50 08/24 H Specimen Type: SERUM No comment entered. Ordering Provider: AMOL PEDERSON Report Released Date/Time: Aug 18, 2023 11:27 AM Reporting Lab: [place] [facility] [address] [facility] [address] Performing Lab: [facility] [address] [place] Encounters Combined list of: 1) Encounters from Department of Veterans Affairs facilities going back up to thelast 18 months. 2) Encounters from the Department of Defense facilities going back up to 280 months. Location Location Details Encounter Type Encounter Number Reason For Visit Attending Provider ADM Date DC Date Status Disposition Source [place] [facility] [facility] Outpatient Encounter [id number] 07/26 [place] [facility] [place] [facility] [place] [facility] Outpatient Encounter [id number] 08/08 [place] [facility] [place] [facility] [facility] Outpatient Encounter [id number] 08/12 [place] [facility] [facility] [place] OFFICE O/P EST MOD 30-39 MIN [id number] Diagnos is: ICD-10- CM E66.9 Obesity , unspeci fied
PERRY POON 08/12 [place] [facility] [facility] Outpatient Encounter [id number] 08/14 [facility] [place] COMPRE OPH EXAM EST PT 1/> [id number] Diagnos is: ICD-10- CM H25.13 Age-rel ated nuclear catarac t, bilater al
MERHAR,YANG H B 10/30 [facility] [place] FIT SPECTACLES MULTIFOCAL [id number] Diagnos is: ICD-10- CM Z46.0 Encount er for fit/adj st of spectac les and contact lenses< br/> MERHAR,YANG H B 10/31 [place] [facility] [place] [facility] [place] [facility] OFF/OP EST MAY X REQ PHY/QHP [id number] Diagnos is: ICD-10- CM Z23 Encount er for immuniz ation<b r/> RA BARBARA MATUTE 06/19 [place] [facility] [place] [facility] [place] Outpatient Encounter [id number] 08/24 [facility] [place] Social History Combined list of available smoking, tobacco, and other social history from Department of Defense and Veterans Affairs facilities. Social History Type Response Date Comment Sourc e Tobacco smoking status [facility] VA-TOBACCO FORMER USER 08/08/2023 [place] [facility] [place] [facility] History of tobacco use [place]-TOBACCO QUIT 15 YRS OR MORE 08/08/2023 [facility] [place] [facility] History of tobacco use VA-TOBACCO FORMER USER 08/07/2022 [place] [facility] [place] [facility] History of tobacco use VA-TOBACCO FORMER USER 08/03/2021 [place] History of tobacco use VA-TOBACCO FORMER USER 02/04/2018 [place] History of tobacco use QUIT TOBACCO USE > 7 YEARS AGO 03/19/2017 quit in 1999 [place] Plan of Care List of future care activities from [facility] facilities. Additional future care activities may be listed in the Assessment and Plan section. Date/Time Care Activity Care Activity Detail Facili ty 10/23/2024 AMBULATORY - MEDICINE AMBULATORY - MEDICI [facility] 11/02/2024 AMBULATORY - MEDICINE AMBULATORY - MEDICI [facility] 11/02/2024 AMBULATORY - MEDICINE AMBULATORY - MEDICI [facility] Advance Directives List of completed, amended, or rescinded Advance Directives on record at [facility] facilities. An actual copy of the Directive is not included. Date Advance Directive Provider Source 08/07/2018 ADVANCE DIRECTIVE FARHAN TOSCANO [facility] 08/07/2018 ADVANCE DIRECTIVE STEVE MARSHALL [facility]
[2024-10-08 12:30] LABS: Iron 83 mcg/dL (45-160); Percent Iron Saturation 36 % (15-50); Total Iron Binding Capacity 228 mcg/dL (228-428); Unsaturated Iron Binding 145 ug/dL
[2024-10-08 12:48] LABS: Ferritin 191 ng/mL (20-250)
[2024-10-08 12:58] LABS: Folate 9.4 ng/mL (> or = 4.0); Vitamin B12 680 pg/mL (200-900)
== END 2024-10-08 10:57 | disposition home or self-care (01) ==
LOC: HO.LAB 10:56
PROVIDERS: PCP Internal Medicine Geriatric Medicine; Visit Provider Internal Medicine Geriatric Medicine
DX: D64.9 Anemia, unspecified (principal)
CPT/HCPCS: 36415; 82607; 82728; 82746; 83540

== ENCOUNTER 2025-06-11 17:08 | Emergency (ER) | payer MEDICAID, SELFPAY ==
[2023-01-17 08:09] VITALS: BP 108/70; BP 112/76; BP 118/70; BMI 34.0
--- OUTSIDE RECORDS SUMMARY | 2025-06-06 14:50 | XMS_ITS | Continuity of Care Document ---
Author Organization [facility] ter Address [address] [place] [id number]- Care Team Providers Care Insurance Salesman Name Role Phone Name Emmanuel SANTA Primary Care Physician Encounter [facility] ACCT R [id number] Date(s): 06/03/25 - 06/06/[address] [address]- Discharge Disposition: A-D/C Home Attending Physician: Tori Resendez MD Admitting Physician: Tori Resendez MD Referring Physician: Tori Resendez MD Encounter Type: Disch IP Allergies, Adverse Reactions, Alerts Substance Criticality Severity Reaction Reaction Severity Status lisinopril Active Immunizations Given and Recorded Vaccine Date Status Refusal Reason influenza virus vaccine, inactivated 06/26/22 James rded influenza virus vaccine, inactivated 06/11/21 James rded influenza virus vaccine, inactivated 05/11/20 James rded influenza virus vaccine, inactivated 06/02/19 James rded influenza virus vaccine, inactivated 06/26/18 James rded influenza virus vaccine, inactivated 06/21/17 James rded SARS-CoV-2 mRNA ([id number]) vax 03/13/22 Recorded SARS-CoV-2 (COVID-19) mRNA BNT-162b2 vac 08/21/21 Recorded pneumococcal 23-valent vaccine 08/03/21 Recorded SARS-CoV-2 (COVID-19) mRNA-1273 vaccine 01/06/21 R ecorded SARS-CoV-2 (COVID-19) mRNA-1273 vaccine 12/09/20 R ecorded tetanus/diphtheria/pertussis, acel(Tdap) 05/11/20 Recorded tetanus/diphtheria/pertussis, acel(Tdap) 07/10/17 Recorded zoster vaccine, inactivated 05/23/19 Recorded zoster vaccine, inactivated 03/09/19 Recorded Medications acetaminophen 325 mg oral tablet 650 mg, By Mouth, Every 4 hours, PRN, Refills 0, Maintenance, Pain , Mild, 06/06/25 7:26:00 AM EDT, Partial fill upon patient request if the prescription is for a schedule II opioid drug. Start Date: 06/06/25 Status: Ordered Medication Dispense Status: Completed Total Allowed Fills: 1 Fills Dispensed: 0 allopurinol 100 mg oral tablet 100 mg, 1, tablet, By Mouth, Daily, # 30 tablet, Refills 0, Maintenance, 09/03/22 2:33:00 PM EST, Partial fill upon patient request if the prescription is for a schedule II opioid drug. Start Date: 09/03/22 Status: Ordered Medication Dispense Status: Completed Quantity: 30.0 Unit: tablet Total Allowed Fills: 1 Fills Dispensed: 0 amLODIPine 5 mg oral tablet 5 mg, Tablet, By Mouth, Hold for: SBP<100, 06/06/25 9:00:00 AM EDT Start Date: 06/06/25 Stop Date: 06/06/25 Status: Completed Medication Dispense Status: Completed Total Allowed Fills: 1 Fills Dispensed: 0 amLODIPine 5 mg oral tablet 5 mg, 1, tablet, By Mouth, Daily, Refills 0, Maintenance, 04/10/22 9:23:00 AM EDT, Partial fill upon patient request if the prescription is for a schedule II opioid drug. Start Date: 04/10/22 Status: Ordered Medication Dispense Status: Completed Total Allowed Fills: 1 Fills Dispensed: 0 amoxicillin 500 mg oral capsule 4 each, 0 Refill(s), TAKE 4 CAPSULES BY MOUTH ONCE A MONTH 30 TO 60 MINUTES BEFORE DENTAL PROCEDURE, 0 Refills, 10/12/24 2:39:00 PM EST, Partial fill upon patient request if the prescription is for a schedule II opioid drug. Start Date: 10/12/24 Status: Ordered Medication Dispense Status: Completed Total Allowed Fills: 1 Fills Dispensed: 0 aspirin 81 mg oral delayed release tablet 1 tablet = 81 mg, By Mouth, Daily, 0 Refills, Maintenance, 04/10/22 9:24:00 AM EDT, Partial fill uponpatient request if the prescription is for a schedule II opioid drug. Start Date: 04/10/22 Status: Ordered Medication Dispense Status: Completed Total Allowed Fills: 1 Fills Dispensed: 0 atorvastatin 80 mg oral tablet 1 tablet = 80 mg, By Mouth, Daily, 0 Refills, Maintenance, 04/10/22 9:23:00 AM EDT, Partial fill uponpatient request if the prescription is for a schedule II opioid drug. Start Date: 04/10/22 Status: Ordered Medication Dispense Status: Completed Total Allowed Fills: 1 Fills Dispensed: 0 carvedilol 3.125 mg oral tablet 3.125 mg, Tablet, By Mouth, Hold for: SBP<100, HR<60, 06/06/25 9:00:00 AM EDT Start Date: 06/06/25 Stop Date: 06/06/25 Status: Completed Medication Dispense Status: Completed Total Allowed Fills: 1 Fills Dispensed: 0 carvedilol 3.125 mg oral tablet 3.125 mg, 1, tablet, By Mouth, 2 times a day, Refills 0, Maintenance, 09/03/22 9:47:00 AM EST, Partial fill upon patient request if the prescription is for a schedule II opioid drug. Start Date: 09/03/22 Status: Ordered Medication Dispense Status: Completed Total Allowed Fills: 1 Fills Dispensed: 0 Flomax 0.4 mg oral capsule 0.4 mg, By Mouth, Daily, # 30 capsule, Refills 0, Tot. Refills 0, Maintenance, 06/06/25 7:29:00 AM EDT, Route to Pharmacy Electronically, [facility], Partial fill upon patient request ifthe prescription is for a schedule II opioid drug., 193, cm, 06/06/25 5:44:00 EDT, Height, 121, kg,06/04/25 11:03:00 EDT, Dry Weight Start Date: 06/06/25 Status: Ordered Medication Dispense Status: Completed Quantity: 30.0 Unit: capsule Total Allowed Fills: 1 Fills Dispensed: 0 losartan 50 mg oral tablet TAKE 1 TABLET BY MOUTH EVERY DAY Start Date: 12/01/24 Status: Ordered Medication Dispense Status: Completed Total Allowed Fills: 1 Fills Dispensed: 0 nitroglycerin 0.4 mg sublingual tablet PLEASE SEE ATTACHED FOR DETAILED DIRECTIONS Start Date: 12/01/24 Status: Ordered Medication Dispense Status: Completed Total Allowed Fills: 1 Fills Dispensed: 0 oxyCODONE 5 mg oral tablet 5 mg, By Mouth, Every 6 hours, PRN, for 5 days, # 20 tablet, Refills 0, Tot. Refills 0, Acute 06/11/25 7:26:00 AM EDT, Pain , Severe, 06/06/25 7:26:00 AM EDT, Route to Pharmacy Electronically, [facility] 3, Partial fill upon patient request if the prescription is for a schedule II opioid drug., 193, cm, 06/06/25 5:44:00 EDT, Height, 121, kg, 06/04/25 11:03:00 EDT, Dry Weight Start Date: 06/06/25 Stop Date: 06/11/25 Status: Ordered Medication Dispense Status: Completed Quantity: 20.0 Unit: tablet Total Allowed Fills: 1 Fills Dispensed: 0 Plavix 75 mg oral tablet 75 mg, By Mouth, Daily, # 90 tablet, Refills 0, Tot. Refills 0, Maintenance, 06/06/25 7:25:00 AM EDT, Route to Pharmacy Electronically, [facility] 3, Partial fill upon patient request if the prescription is for a schedule II opioid drug., 193, cm, 06/06/25 5:44:00 EDT, Height, 121, kg, 06/04/25 11:03:00 EDT, Dry Weight Start Date: 06/06/25 Stop Date: 09/04/25 Status: Ordered Medication Dispense Status: Completed Quantity: 90.0 Unit: tablet Total Allowed Fills: 1 Fills Dispensed: 0 Vitamin B12 1000 mcg oral tablet 1 tablet = 1,000 mcg, By Mouth, Daily, 0 Refills, Maintenance, 04/10/22 9:26:00 AM EDT, Partial fill upon patient request if the prescription is for a schedule II opioid drug. Start Date: 04/10/22 Status: Ordered Medication Dispense Status: Completed Total Allowed Fills: 1 Fills Dispensed: 0 Problem List Condition Confirmation Course Effective Dates [...] on: 04/18/23 Sex Sex Representation Male (finding) Implantable Device List Procedure Provider Procedure Date Device Type Site Patch Angioplasty Tori Resendez MD 06/03/25 Unknown Groin Right Device Identifier Serial Number Lot or Batch Number Manufacturing Date Expiration Date Distinct Identification Code MRI Safety Implantable Status Assigning Authority Unknown [id number] Unknown Unknown 01/14/28 Unknown Unknown Active Unknown Procedure Provider Procedure Date Device Type Site Patch Angioplasty Tori Resendez MD 06/03/25 Unknown Groin Left Device Identifier Serial Number Lot or Batch Number Manufacturing Date Expiration Date Distinct Identification Code MRI Safety Implantable Status Assigning Authority Unknown [id number] Unknown Unknown 08/28/27 Unknown Unknown Active Unknown Procedure Provider Procedure Date Device Type Site Patch Angioplasty Tori Resendez MD 06/03/25 Unknown Groin Right Device Identifier Serial Number Lot or Batch Number Manufacturing Date Expiration Date Distinct Identification Code MRI Safety Implantable Status Assigning Authority Unknown Unknown [id number] Unknown 08/03/30 Unknown Unknown Active Unknown Procedure Provider Procedure Date Device Type Site Aortogram Angiogram Arteriog jonas with Angie Resendez MD Tori Dwain 06/03/25 Unknown Other Device Identifier Serial Number Lot or Batch Number Manufacturing Date Expiration Date Distinct Identification Code MRI Safety Implantable Status Assigning Authority Unknown 2-8 [id number] Unknown 07/04/30 Unknown Unknown Active Unknown Procedure Provider Procedure Date Device Type Site Aortogram Angiogram Arteriog jonas with Angie Resendez MD Tori Dwain 06/03/25 Unknown Other Device Identifier Serial Number Lot or Batch Number Manufacturing Date Expiration Date Distinct Identification Code MRI Safety Implantable Status Assigning Authority Unknown 4-6 [id number] Unknown 07/04/30 Unknown Unknown Active Unknown EKG study * Event Display: ECG 12-Lead Authored Date: Please click on pdf link to open report * Event Display: ECG 12-Lead Authored Date: Ventricular Rate: 77 BPM Atrial Rate: 77 BPM P-R Interval: 138 ms QRS Duration: 98 ms Q-T Interval: 378 ms QTC Calculation(Bazett): 427 ms P Greene: 37 degrees R Greene: 37 degrees T Greene: 85 degrees Sinus rhythm with Premature atrial complexes Cannot rule out Inferior infarct , age undetermined Nonspecific T wave abnormality Abnormal ECG When compared with ECG of 20-May-2025 15:46, Nonspecific T wave abnormality now evident in Inferior leads Confirmed by Jason Agosto ([id number]) on 06/04/2025 12:18:17 PM Stafford: Jason Agosto [facility] Progress note * Kale Tovar MD, I: PERFORM, SIGN, VERIFY Event Display: Progress Note Hospital Authored Date: [id number] Patient: RYAN CHAN Age: 65 years Sex: Male : 1960 Associated Diagnoses: None Author: Kale Tovar MD, I Overnight Events & Current Issues Doing better, urine output 2200 cc Review of Systems Review of Systems Constitutional negative. Respiratory negative. Cardiovascular negative. Review / Management Doran Catheter Yes. Physical Examination Vitals Vitals : VITAL SIGNS SECTION 06/06/2025 7:34 EDT Early Warning Score 6.00 06/06/2025 7:34 EDT Temperature 98.2 DegF Temperature Route Oral Pulse Rate 83 bpm Respiratory Rate 18 br/min Systolic Blood Pressure 153 mm Hg H Diastolic Blood Pressure 73 mm Hg Blood pressure sites Arm, left Mean Arterial Pressure 100 mm Hg Pulse Pressure 80 mm Hg Oxygen Saturation 95 % Mode of Delivery (Oxygen) Room air . General Appearance No apparent distress. Respiratory Lungs: CTA. Cardiac No murmur/gallop/rub. Rhythms: RRR. Abdomen/GI Soft. Non-tender. Non-distended. Extremities No edema. Neurologic Alert. Results Review General resultsToday's results 06/06/2025 0:10 EDT WBC 12.0 k/mm3 H RBC 2.65 m/mm3 L Hgb 8.0 Gm/dL L Hct 24.1 % L MCV 90.9 femtoliters MCH 30.2 pg MCHC 33.2 Gm/dL Platelet Count 140 k/mm3 L RDW-SD 45.8 femtoliters MPV 11.7 femtoliters Nucleated RBC (Automated) 0.7 #/100 WBC'S Abs. NRBC 0.1 k/mm3 Sodium 134 mmol/L Potassium 3.9 mmol/L Chloride 101 mmol/L Bicarbonate Level 23 mmol/L Anion Gap 10 mmol/L Glucose Level 113 mg/dL H BUN 26 mg/dL H Creatinine-Blood 1.39 mg/dL H Estimated GFR Creatinine 57 ML/MIN/1.73 M2 Calcium, Ionized pH Corrected 1.14 mmol/L Phosphorus 2.5 mg/dL Magnesium 2.3 mg/dL . Impression and Plan YARI. Most likely ischemic ATN secondary to blood loss but could also have KIRAN playing a part, also received dose of ketorolac. C3 and C4 normal, which make renal embolic disease less likely. Fortunately urine output improved. Creatinine stable. Will continue supportive care. No indications for renal placement therapy. Try to avoid NSAIDs and contrast dye. Mild hyponatremia. Improved. Ok to d/c from renal perspective. Check BMP next week. * Ca Jean RN: PERFORM, SIGN, VERIFY Event Display: Progress Note Hospital Authored Date: [id number] Patient: RYAN CHAN Age: 65 years Sex: Male : 1960 Associated Diagnoses: None Author: Ca Jean RN Findings Problem Related to Alteration in Tissue Perfusion : Alteration in Tissue Perfusion 06/05/2025 16:00 EDT Alteration Tissue Perfusion related to Vascular Surgery, Other: bilat fen endaracterectomy Goals & Outcomes: Tissue perfusion Pt will maintain optimal perfusion to vital organs, Pt will resume/maintain adequate peripheral circulation, Pt will experience improved tissue perfusion, Pt will achieve progressive healing of injured area, Pt will be hemodynamically stable, Pt will achieve no rmal/improved/optimal neuro status, Pt will return to baseline respiratory function, Pt will maintain adequate GI function appropriate for pt, Pt will maintain adequate function appropriate for pt, Pt will be discharged without infection, Pt/ S.O. will state understanding of plan of care, Pt/S.O. will verbalize understanding of the D/C plan Interventions: Tissue Perfusion Assess for s/s of infection of lines, drains, incisions, Assess/Monitor activity tolerance, Assess/Monitor cardiac dysrhythmias, Assess/Monitor CMS to affected extremity, Assess/Monitor peripheral pulses & capillary refill, Assess/Monitor presence & degree of edema, Assess/Monitor vital signs per unit standard & prn, Discuss discharge needs with field nurse case manager, Monitor Intake & Output, Monitor response to fluid replacement, Elevate limbs, Physical assessment per unit standards Goals/Interventions, Tissue Perfusion Yes Tissue Perfusion, Problem Start 06/04/2025 18:48 Reviewed Plan with, Tissue Perfusion Patient Patient Progression, Tissue Perfusion Pt progressing according to plan . Nursing Data Vital Signs : VITAL SIGNS SECTION 06/05/2025 15:34 EDT Temperature 98.3 DegF Temperature Route Oral Pulse Rate 81 bpm Respiratory Rate 18 br/min Systolic Blood Pressure 144 mm Hg H Diastolic Blood Pressure 70 mm Hg Blood pressure sites Arm, right Mean Arterial Pressure 95 mm Hg Pulse Pressure 74 mm Hg Oxygen Saturation 98 % Mode of Delivery (Oxygen) Room air . Narrative/Incidental Pt is A+OX4 s/p bilateral endarterectomy; no tele; can be independent in room per physical therapy today; on basic rate heparin gtt @5u/kg/hr; with doran in palce; tolerated food and fluids well; call dubon within reach;see CIS for complete biophys. . * Bubba JARVIS, Kimberly Fournier: PERFORM Event Display: Progress Note Hospital Authored Date: [id number] Patient: ??RYAN CHAN ? Age:??65 Years?Sex:??Male?:??1960?? Subjective Patient examined at bedside this morning. No acute changes or events overnight. POD 2 bilateral FEA, bilateral iliac stents with Dr. Resendez.??Denies any pain currently. 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 Discussion was had in regards to kidney function and importance of staying until it resolves; patient agreeable at this time. Review of Systems General: No fevers or chills, no weight loss HEENT: No vision changes, headache or sore throat Resp: No dyspnea, cough Cardiac: no chest discomfort or palpitations Abdomen: no nausea, vomiting or diarrhea; no pain, bloating or soreness : doran in place Skin: no new??rashes, ulcers, pruritus MSK: no new joint pain, edema Neuro: no new weakness, numbness Objective Vitals & Measurements T:??97.7?F?? TMIN:??97.2?F?? TMAX:??98.2?F?? HR:??94??(Peripheral)?? RR:??18?? BP:??151/79?? SpO2:??96%?? Physical Exam General appearance: No apparent distress, appears stated age, well developed. Head: Normocephalic, atraumatic. Cardiac: RRR, no murmurs?? Respiratory: Regular, unlabored Abdomen: Soft, nontender, nondistended. No guarding or rebound. No palpable mass. Extremities: Able to move all extremities without difficulty. Warm. Sensorimotor intact. 1+ pittingedema at ankles.?? Neurologic status: Alert and oriented x 3. No focal deficits. Psych: Mood and affect normal. Vascular: Bilateral groins: soft without fullness or hematoma. Aquacel dressings intact, clean.?? Right: BP AT/DP/PT Left: BP PT Assessment/Plan Ryan is a 65 yo male with pmh significant for CAD s/p CABGx3 and ascending aortic replacement??'22, HLD, HTN, known right internal carotid occlusion who presents to [facility] for an elective procedure. Heis now s/p bilateral femoral artery endarterectomy, patch??angioplasty repair??of bilateral??femoral, bilateral iliac stents and completion angiogram??with Dr. Resendez. The case was complicated by need for aggressive resuscitation due to blood loss. Patient required 4u pRBC intraop, 5L LR, and 1400mL of cell saver. He briefly required vesna in pacu, has now been weaned off after 3 additional L of bolus. He has had minimal urine out post operatively, doran catheter to remain in place and renal consulted for acute kidney injury. Started on static heparin gtt in the setting of no doppler??signal to the left foot post operatively. Patient noted to have biphasic PT signal on LLE this morning. ?? Plan: - Cardiac diet - Continue static hep gtt - Continue DAPT, Atorvastatin - Home meds as approp - Multimodal pain control - Renal recs apprec: will repeat BMP tonight - Doran to remain in place; strict I/O's - OOB/ambulate - Daily weights - Pulse checks Q4H - Wound care: aquacel dsg to remain in place until POD 5 - Daily labs, replete PRN ?? Please [place] Vascular [place] or [place] [phone]. ?? Resident/PA/AIRLINE PILOT/FIRST OFFICER Attestation Case discussed with attending physician:??Dr. Beck ?? Medications Inpatient Acetaminophen(Acetaminophen Tablet), 650 mg, By Mouth, Every 4 hours, PRN Allopurinol(allopurinol 100 mg oral tablet), 100 mg, By Mouth, Daily Amlodipine(amLODIPine 5 mg oral tablet), 5 mg, By Mouth, Daily Aspirin(Aspirin Tablet), 81 mg, By Mouth, Daily Atorvastatin(atorvastatin 80 mg oral tablet), 80 mg, By Mouth, Daily Benzocaine Topical(Chloraseptic Lozenge), 1 lozenge, By Mouth, Every 3 hours, PRN Bisacodyl(Bisacodyl Supp), 10 mg= 1 supp, Rectally, Daily, PRN Carvedilol(carvedilol 3.125 mg oral tablet), 3.125 mg, By Mouth, 2 times a day Clopidogrel(Plavix 75 mg oral tablet), 75 mg, By Mouth, Daily Docusate(Docusate Sodium Capsule), 100 mg= 1 capsule, By Mouth, 2 times a day Heparin 25,000 units [5 units/kg/hr] + Dextrose 5% in Water 250 mL(Heparin 25,000 units in 250 mL Premix 25,000 units [5 units/kg/hr] + D5%W Premixed IV 250 mL), 250 mL, Infusion, IV Infusion, 250 mL, 6.06 mL/hr, Infuse over 41.3 hr, this is a set rate; NOT A SLIDING SCALE, Unless duration specified Continue until D/C'd, Routine, 06/04/25 9:01:00 EDT, 121.1 kg Hydromorphone(Dilaudid Inj), 0.5 mg= 0.5 mL, IV Push Slowly, Every 4 hours, PRN Ondansetron(Ondansetron Inj), 4 mg, IV Push, Every 6 hours, PRN Oxycodone(OxyCODONE IR Tablet), 5 mg, By Mouth, Every 4 hours, PRN Home Allopurinol(allopurinol 100 mg oral tablet), 100 mg= 1 tablet, By Mouth, Daily Amlodipine(amLODIPine 5 mg oral tablet), 5 mg= 1 tablet, By Mouth, Daily Amoxicillin(amoxicillin 500 mg oral capsule) Aspirin(aspirin 81 mg oral delayed release tablet), 81 mg= 1 tablet, By Mouth, Daily Atorvastatin(atorvastatin 80 mg oral tablet), 80 mg= 1 tablet, By Mouth, Daily Carvedilol(carvedilol 3.125 mg oral tablet), 3.125 mg= 1 tablet, By Mouth, 2 times a day Colchicine(colchicine 0.6 mg oral capsule), 0.6 mg= 1 capsule, By Mouth, Daily Cyanocobalamin(Vitamin B12 1000 mcg oral tablet), 1000 mcg= 1 tablet, By Mouth, Daily Losartan(losartan 50 mg oral tablet) Nitroglycerin(nitroglycerin 0.4 mg sublingual tablet) PredniSONE(predniSONE 20 mg oral tablet) * Ebony SANTA, Vikas A: PERFORM Event Display: Progress Note Hospital Authored Date: I reviewed the AIRLINE PILOT/FIRST OFFICER note and findings, and discussed with the team.?? I reviewed all relevant laboratory work, and personally reviewed and interpreted the relevant imaging with the AIRLINE PILOT/FIRST OFFICER. Consult note * La SANTA, Kale I: MODIFY, PERFORM, MODIFY Event Display: Consultation Note Authored Date: Patient: ??RYAN CHAN ? Age:??65 Years?Sex:??Male?:??1960?? Reason for Consultation YARI History of Present Illness RYAN CHAN is a 65 year old male with a history of CAD and small ascending aneurysm s/p CABG/ascending aortic graft, right carotid artery occlusion with small stroke no residual deficits, and bilateral lower extremity claudication??S/P Endarterectomy femoral/Aortogram Arteriogram Angiogram Plasty- Stent IR yesterday.? In OR per anaesthesia note:?? Total Lactated Ringers 5,000 mL Total NaCl 0.45% 0 mL Total Sodium Bicarb 0 mL Blood plus Cell Saver In 1395 EBLTotalOut 2500 Total Urine Output 330 ?? 3L otherwise plus phenylephrine?on LR 125 cc/hr currently?? 4 Units RBCs? Making little urine according to interactive flow sheet?? Current/Previous?? Creat??2.07 from 1.91?? Bun?35 from 39?? Sodium??136 from 137 Potassium?? 5.4 H from 5.6?? BiCarb?? 19 from 17 AG?11 from 13 phos?5.8 from 7.7 mag?1.8?? from 1.9 Richardson 1.11??from 1.12 HgB 11 ?? Ryan is feeling well today, happy to be done with the procedure. No prior hx of urinary retention or nephrolithiasis. No personal or family hx of??kidney cancer.?? Doran in place draining small amount of yellow urine, roughly 50cc in bag at time of visit.?? Review of Systems A full review of systems was completed and is otherwise negative except as mentioned in history of present illness Physical Exam General: No acute distress HEENT: EOMI, mucous membranes moist CV: RRR S1 S2 present. No murmurs, gallops, rubs appreciated. No JVD. No edema. Respiratory: All callahan clear to auscultation bilaterally. No wheezes, rales, rhonchi appreciated Abdominal: Soft, nontender. No rebound tenderness. Bowel sounds noted all four quadrants. : No suprapubic tenderness. Neuro: A&OX3. Moving upper and lower extremities. No gross neurological deficits Psych: Affect appropriate Skin: No acute lesions, wounds, rashes. Assessment/Plan Assessment:??RYAN CHAN is a 65 year old male with a history of CAD and small ascending aneurysms/p CABG/ascending aortic graft, right carotid artery occlusion with small stroke no residual deficits, and bilateral lower extremity claudication??S/P Endarterectomy femoral/Aortogram Arteriogram Angiogram Plasty- Stent IR 06/04.? Labs: Creat??2.07 from 1.91?? Bun?35 from 39?? Sodium??136 from 137 Potassium??5.4 H from 5.6?? BiCarb??19 from 17 AG?11 from 13 phos?5.8 from 7.7 mag?1.8??from 1.9 Richardson 1.11??from 1.12 HgB 11 ?? YARI Most likely ischemic ATN secondary to blood loss but could also have KIRAN playing a part, also received dose of ketorolac Can???t rule out embolic damage either so recommend LDH, C3/C4. Fluid angulo recommend being careful with IV fluids as he is not making much urine and don???t want to overload him May consider RBUS if no improvement? Recs:?? - LDH, C3/C4 - Recommend caution??with IV fluids as he is??not making much urine and this is likely due ATN - Avoid NSAIDs - Monitor I&Os - Daily BMP ?? Renal following, please reach out??with any questions.? Assisted in documentation by??Drake Ramos, MS4, [facility]? Attending Attestation ? I reviewed the patient's history, examined the patient, and confirmed the above findings as documented by the fellow/resident. I personally formulated the essential elements of the assessment and plan noted above. Dr. Tovar?? Problem List/Past Medical History Ongoing CAD (coronary artery disease) Current nicotine use Hyperlipidemia Hypertension Obese class I Right internal carotid occlusion Medications Inpatient Acetaminophen(Acetaminophen Tablet), 650 mg, By Mouth, Every 4 hours, PRN Allopurinol(allopurinol 100 mg oral tablet), 100 mg, By Mouth, Daily Amlodipine(amLODIPine 5 mg oral tablet), 5 mg, By Mouth, Daily Aspirin(Aspirin Tablet), 81 mg, By Mouth, Daily Atorvastatin(atorvastatin 80 mg oral tablet), 80 mg, By Mouth, Daily Bisacodyl(Bisacodyl Supp), 10 mg= 1 supp, Rectally, Daily, PRN Calcium Gluconate(Calcium Gluconate 4.6mEq/50mL NaCL (1Gm)), 4.6 mEq= 50 mL, IVPB, Once Carvedilol(carvedilol 3.125 mg oral tablet), 3.125 mg, By Mouth, 2 times a day Clopidogrel(Plavix 75 mg oral tablet), 75 mg, By Mouth, Daily Docusate(Docusate Sodium Capsule), 100 mg= 1 capsule, By Mouth, 2 times a day Heparin 25,000 units [5 units/kg/hr] + Dextrose 5% in Water 250 mL(Heparin 25,000 units in 250 mL Premix 25,000 units [5 units/kg/hr] + D5%W Premixed IV 250 mL), 250 mL, Infusion, IV Infusion, 250 mL, 6.06 mL/hr, Infuse over 41.3 hr, this is a set rate; NOT A SLIDING SCALE, Unless duration specified Continue until D/C'd, Routine, 06/04/25 9:01:00 EDT, 121.1 kg Hydromorphone(Dilaudid Inj), 0.5 mg= 0.5 mL, IV Push Slowly, Every 4 hours, PRN Lactated Ringers Injection 1000 mL(LR 1000 mL), 1000 mL, IV Infusion Magnesium Sulfate(Magnesium Sulfate IVPB), 2 Gm= 50 mL, IVPB, Once Ondansetron(Ondansetron Inj), 4 mg, IV Push, Every 6 hours, PRN Oxycodone(OxyCODONE IR Tablet), 5 mg, By Mouth, Every 4 hours, PRN Sodium Phosphate(Sodium Phosphate IVPB), 15 mmol, in 250 mL D5%W, IVPB, Injection, Once, Infuse over 6 hours, Routine, 06/04/25 12:00:00 EDT, Stop date 06/04/25 12:00:00 EDT Home Allopurinol(allopurinol 100 mg oral tablet), 100 mg= 1 tablet, By Mouth, Daily Amlodipine(amLODIPine 5 mg oral tablet), 5 mg= 1 tablet, By Mouth, Daily Amoxicillin(amoxicillin 500 mg oral capsule) Aspirin(aspirin 81 mg oral delayed release tablet), 81 mg= 1 tablet, By Mouth, Daily Atorvastatin(atorvastatin 80 mg oral tablet), 80 mg= 1 tablet, By Mouth, Daily Carvedilol(carvedilol 3.125 mg oral tablet), 3.125 mg= 1 tablet, By Mouth, 2 times a day Colchicine(colchicine 0.6 mg oral capsule), 0.6 mg= 1 capsule, By Mouth, Daily Cyanocobalamin(Vitamin B12 1000 mcg oral tablet), 1000 mcg= 1 tablet, By Mouth, Daily Losartan(losartan 50 mg oral tablet) Nitroglycerin(nitroglycerin 0.4 mg sublingual tablet) PredniSONE(predniSONE 20 mg oral tablet) Allergies lisinopril Social History Tobacco Use:Former smoker, quit more than 30 days ago Immunizations Vaccine Date Status influenza virus vaccine, inactivated 06/26/2022 Recorded SARS-CoV-2 mRNA (phjvlqj-mafq-ulxpi) vax 03/13/2022 Recorded SARS-CoV-2 (COVID-19) mRNA BNT-162b2 vac 08/21/2021 Recorded pneumococcal 23-valent vaccine 08/03/2021 Recorded influenza virus vaccine, inactivated 06/11/2021 Recorded SARS-CoV-2 (COVID-19) mRNA-1273 vaccine 01/06/2021 Recorded SARS-CoV-2 (COVID-19) mRNA-1273 vaccine 12/09/2020 Recorded influenza virus vaccine, inactivated 05/11/2020 Recorded tetanus/diphtheria/pertussis, acel(Tdap) 05/11/2020 Recorded influenza virus vaccine, inactivated 06/02/2019 Recorded zoster vaccine, inactivated 05/23/2019 Recorded zoster vaccine, inactivated 03/09/2019 Recorded influenza virus vaccine, inactivated 06/26/2018 Recorded tetanus/diphtheria/pertussis, acel(Tdap) 07/10/2017 Recorded influenza virus vaccine, inactivated 06/21/2017 Recorded Note * Bubba JARVIS, Kimberly Fournier: MODIFY, PERFORM Event Display: Discharge/Transfer Note Hospital Authored Date: [id number] Patient: ??RYAN CHAN ? Age:??65 Years?Sex:??Male?:??1960?? Admit Date Admission Date: 06/03/2025 Discharge Date 06/06/2025 Discharge Diagnoses Peripheral arterial disease Hospital Course Ryan is a 65 yo male with pmh significant for CAD s/p CABGx3 and ascending aortic replacement??'22, HLD, HTN, known right internal carotid occlusion who presents to [facility] for an elective procedure. Heis now s/p bilateral femoral artery endarterectomy, patch??angioplasty repair??of bilateral??femoral, bilateral iliac stents and completion angiogram??with Dr. Resendez. The case was complicated by need for aggressive resuscitation due to blood loss. Patient required 4u pRBC intraop, 5L LR, and 1400mL of cell saver. He briefly required vesna in pacu, has now been weaned off after 3 additional L of bolus. He has had minimal urine out post operatively, doran catheter to remain in place and renal consulted for acute kidney injury. Started on static heparin gtt in the setting of no doppler??signal to the left foot post operatively. Patient noted to have biphasic PT signal on LLE this morning. Doran removed this morning; patient voiding independently. Patient ambulatory without difficulty. Patient cleared for discharge home today with services. Objective/Physical Exam on Day of Discharge Vitals & Measurements T:??99.6?F?? HR:??88??(Peripheral)?? RR:??17?? BP:??154/78?? BP:??112/60(Line)?? SpO2:??98%?? HT:??193??cm?? WT:??123.1??kg?? BMI:??34.01?? General appearance: No apparent distress, appears stated age, well developed. Head: Normocephalic, atraumatic. Cardiac: RRR, no murmurs?? Respiratory: Regular, unlabored Abdomen: Soft, nontender, nondistended. No guarding or rebound. No palpable mass. Extremities: Able to move all extremities without difficulty. Warm. Sensorimotor intact. 1+ pittingedema at ankles.?? Neurologic status: Alert and oriented x 3. No focal deficits. Psych: Mood and affect normal. Vascular: Bilateral groins: soft without fullness or hematoma. Aquacel dressings intact, clean.?? Right: BP AT/DP/PT Left: BP DP/PT Assessment/Plan Resume home medications as instructed Start Plavix 75mg daily for 90 days Start Flomax daily for 30 days ?? Pain: Tylenol PRN mild-moderate pain; Oxycodone PRN severe pain ?? No heavy lifting greater than 10lbs until follow up appt No strenuous activity until follow up appt No bathing, swimming, or submerging in water until follow up appt - shower ok ?? Please have labs drawn 06/11/25 - written order given ?? Future Appointments 2024 3:00 PM EDT ?? Type: Post-Op With: Tia Uriostegui NP Where: [facility] [address] [place] [address] [address] [place] [address]- Status: Pending Patient Discharge Condition Stable Discharge Disposition Home with services Home Health Face to Face *Denotes mandatory callahan ?? *I certify that this patient is under my care and that I or an allowed non- physician working with me had a face to face encounter with the patient on this date:??06/06/2025 07:30 ?? *The encounter with the patient was in whole, or in part, for the following medical condition, which is the primary diagnosis(es) for home health care:??Peripheral arterial disease (I73.9) ?? *Select the indications for the discipline/s that are being arranged for this patient. Nursing (select all that apply): [_] None [x] Medication management (reconciliation, teaching)?? [x] Chronic disease management?? [x] Wound care and treatment: Remove aquacel dressings to bilateral groins on 06/08 then betadine paint to incisions daily. May leave open to air if dry without drainage;??otherwise cover with DSD. ?? [x] Home safety evaluation [_] Administer SQ/IM/IV medications?? [_] Cath care?? [_] Drain care?? [_] Trach or GT care?? Other _ Occupation Therapy (select all that apply): [_] None [_] ADL Management [_] Fall prevention training [_] Energy conservation [_] Cognitive training Other _ Physical Therapy (select all that apply): [_] None [x] Functional mobility training [x] Home exercise program to strengthen [x] Increase ROM?? [x] Falls prevention training [x] Home maintenance program for chronic disease Other _ Speech Therapy (select all that apply): [_] None [_] Swallow evaluation and training [_] Speech and language training [_] Cognitive training to process, organize, and/or recall information Other _ ? *Homebound due to (select all that apply): [_] Inability to leave home without assistance/supervision [_] Inability to ambulate without assistance [x] Pain [x] Decreased strength and endurance [x] Unsteady gait [_] Severe SOB and fatigue [_] Impaired transfers [_] Inability to negotiate stairs [_] Limited weight bearing [_] Mental status change? *Physician Signature:??Kimberly Mac NP ?? *By signing this, I certify that I have personally evaluated the patient and agree with the findings and recommendations as documented above. ? Inpatient Medications Medications (13) Active SCHEDULED: (7) Allopurinol 100 mg Tablet (allopurinol 100 mg oral tablet) ??100 mg, By Mouth, Daily Amlodipine 5 mg Tablet (amLODIPine 5 mg oral tablet) ??5 mg, By Mouth, Daily Aspirin 81 mg EC Tablet (Aspirin Tablet) ??81 mg, By Mouth, Daily Atorvastatin 80 mg Tablet (atorvastatin 80 mg oral tablet) ??80 mg, By Mouth, Daily Carvedilol 3.125 mg Tablet (carvedilol 3.125 mg oral tablet) ??3.125 mg, By Mouth, 2 times a day Clopidogrel 75 mg Tablet (Plavix 75 mg oral tablet) ??75 mg, By Mouth, Daily Docusate Sodium 100 mg Capsule (Docusate Sodium Capsule) ??100 mg 1 capsule, By Mouth, 2 times a day CONTINUOUS: (0) PRN: (6) Acetaminophen 325 mg Tablet (Acetaminophen Tablet) ??650 mg, By Mouth, Every 4 hours Bisacodyl 10 mg Suppository (Bisacodyl Supp) ??10 mg 1 supp, Rectally, Daily Chloraseptic Lozenge ??1 lozenge, By Mouth, Every 3 hours HYDROmorphone 0.5 mg/0.5 mL Inj Syringe (Dilaudid Inj) ??0.5 mg 0.5 mL, IV Push Slowly, Every 4 hours Ondansetron 2mg/mL Inj (2mL Vial) (Ondansetron Inj) ??4 mg, IV Push, Every 6 hours OxyCODONE 5 mg IR Tablet (OxyCODONE IR Tablet) ??5 mg, By Mouth, Every 4 hours Discharge Medications Acetaminophen (acetaminophen 325 mg oral tablet)??650 Milligram By Mouth Every 4 hours as needed Pain , Mild Allopurinol (allopurinol 100 mg oral tablet)??100 Milligram 1 tablet By Mouth Daily Amlodipine (amLODIPine 5 mg oral tablet)??5 Milligram 1 tablet By Mouth Daily Amoxicillin (amoxicillin 500 mg oral capsule)??4 each, 0 Refill(s), TAKE 4 CAPSULES BY MOUTH ONCE AMONTH 30 TO 60 MINUTES BEFORE DENTAL PROCEDURE Aspirin (aspirin 81 mg oral delayed release tablet)??1 tab(s) 81 Milligram By Mouth Daily Atorvastatin (atorvastatin 80 mg oral tablet)??1 tab(s) 80 Milligram By Mouth Daily Carvedilol (carvedilol 3.125 mg oral tablet)??3.125 Milligram 1 tablet By Mouth 2 times a day Clopidogrel (Plavix 75 mg oral tablet)??75 Milligram By Mouth Daily for 90 Days Cyanocobalamin (Vitamin B12 1000 mcg oral tablet)??1 tab(s) 1,000 Microgram By Mouth Daily Losartan (losartan 50 mg oral tablet)??TAKE 1 TABLET BY MOUTH EVERY DAY Nitroglycerin (nitroglycerin 0.4 mg sublingual tablet)??PLEASE SEE ATTACHED FOR DETAILED DIRECTIONS Oxycodone (oxyCODONE 5 mg oral tablet)??5 Milligram By Mouth Every 6 hours as needed for 5 Days Pain , Severe Tamsulosin (Flomax 0.4 mg oral capsule)??0.4 Milligram By Mouth Daily Labs Last 24 Hours BLOOD COUNT & DIFF ? Event Name?? Event Result?? Date/Time?? WBC 12 k/mm3??High 06/06/25 00:10:00 RBC 2.65 m/mm3??Low 06/06/25 00:10:00 Hgb 8 Gm/dL??Low 06/06/25 00:10:00 Hct 24.1 %??Low 06/06/25 00:10:00 MCV 90.9 femtoliters 06/06/25 00:10:00 MCH 30.2 pg 06/06/25 00:10:00 MCHC 33.2 Gm/dL 06/06/25 00:10:00 Platelet Count 140 k/mm3??Low 06/06/25 00:10:00 MPV 11.7 femtoliters 06/06/25 00:10:00 Nucleated RBC (Automated) 0.7 #/100 WBC'S 06/06/25 00:10:00 ? CHEM GENERAL ? Event Name?? Event Result?? Date/Time?? Sodium 134 mmol/L 06/06/25 00:10:00 Chloride 101 mmol/L 06/06/25 00:10:00 Bicarbonate Level 23 mmol/L 06/06/25 00:10:00 Anion Gap 10 mmol/L 06/06/25 00:10:00 Glucose Level 113 mg/dL??High 06/06/25 00:10:00 BUN 26 mg/dL??High 06/06/25 00:10:00 Creatinine-Blood 1.39 mg/dL??High 06/06/25 00:10:00 Calcium, Ionized pH Corrected 1.14 mmol/L 06/06/25 00:10:00 Phosphorus 2.5 mg/dL 06/06/25 00:10:00 Magnesium 2.3 mg/dL 06/06/25 00:10:00 ? Consultants Sohail Tovar MD - Renal Patient Education Titles [employer] Patient Education - BVS-Femoral Endarterectomy Post Operative Discharge Instruction?? * Marli Sullivan RN: PERFORM Event Display: Patient Education/Instruction Authored Date: [id number] Inpatient Adult Discharge Instructions. [address] [address] Name: RYAN CHAN : 1960?? Visit: 06/03/2025 08:25?? Current Date: 06/06/2025 13:46 ?? Account: [id number]?? Inpatient Adult Discharge Instructions We would like to thank you for allowing us to assist you with your healthcare needs. The following includes patient education materials and information regarding your injury/illness. Our entire staffstrives to provide an excellent experience for our patients and their families. PLEASE ENSURE YOU FOLLOW-UP PER THE INSTRUCTIONS BELOW! ?? YOUR OPINION IS IMPORTANT TO US! Please complete the survey you may receive by mail or email. Your feedback will be used to make improvements to the healthcare experiences of our patients and their families. Surveys are administered by [employer] ?? If further treatment with your primary care physician or another doctor is recommended, it is important for you to keep the appointment. Call your primary care physician or return to the Emergency Department immediately if your condition worsens, fails to improve, or new symptoms develop. If you need to find a doctor, you can call [facility] [employer] for a referral at [phone] or toll free at [phone] or log in to [email or web address].. ?? [facility], in keeping with [facility] guidance, no longer requires face masks for staff, patientsor visitors in most situations. Similiar to time spent indoors at other locations, there is the chance that you were exposed to repiratory viruses during your time with us (such as flu or COVID-19). If you develop symptoms concerning for a viral respiratory infection, please seek testing (and treatment if indicated) from your medical provider or home test kit. ?? You can view and manage your care through the patient portal or by using a health care cecilio of your choosing. [employer] is a website that allows you to securely view your medical information including your hospital discharge summary, office visit summaries, medications and follow-up visits. You can also request appointments, renew medications, and request access to your medical information using a health care cecilio of your choosing, or just ask a question. You are entitled to know the individuals who participated in your treatment.This information is available within your medical record and will be provided upon your request. You can enroll at [email or web address] or register during your next office visit. You have been discharged from [facility], Patient Care Unit: M6??. If you have any questions or concerns following your procedure, please call your surgeon?s office for assistance. [facility] Your Care Team Attending Physician Tori Resendez MD?? Consulting Providers Tori Resendez MD?? Discharging Providers Bubba JARVIS, Kimberly Fournier Your Diagnosis Peripheral arterial disease Tests Performed Below is a partial list of the tests performed during your hospitalization. You may have had other tests and procedures not included in this list. Please discuss all test results with your provider. ABG POC CARTRIDGE BASE EXCESS POC CARTRIDGE BUN CALCIUM IONIZED POC CART CBC COMPLEMENT C3 COMPLEMENT C4 Creatinine Electrolytes Glucose Level GLUCOSE POC CARTRIDGE H + H HEMATOCRIT POC CARTRIDGE HEMOGLOBIN POC CARTRIDGE Ionized Calcium LDH Lytes Magnesium Level Phosphorus Level POC Hemochron ACT-LR POTASSIUM POC CARTRIDGE SODIUM POC CARTRIDGE Type and Screen ABG (Lab) POC Cartridge (ABG POC CARTRIDGE)?? Add On Lab Order?? BUN?? Base Excess (Lab) POC Cartridge (BASE EXCESS POC CARTRIDGE)?? Basic Metabolic Panel?? C3 Complement (COMPLEMENT C3)?? C4 Complement (COMPLEMENT C4)?? CBC?? Creatinine?? Electrolytes?? Glucose (Lab) POC Cartridge (GLUCOSE POC CARTRIDGE)?? Glucose Level?? Hematocrit (Lab) POC Cartridge (HEMATOCRIT POC CARTRIDGE)?? Hemoglobin (Lab) POC Cartridge (HEMOGLOBIN POC CARTRIDGE)?? Hgb + Hct (H + H)?? Ionized Calcium?? Ionized Calcium(POC) POC Cartridge (CALCIUM IONIZED POC CART)?? LDH?? Magnesium Level?? POC ACT-LR (POC Hemochron ACT-LR)?? Phosphorus Level?? Potassium (Lab) POC Cartridge (POTASSIUM POC CARTRIDGE)?? RBCs for Surgery?? Sodium (Lab) POC Cartridge (SODIUM POC CARTRIDGE)?? Transfuse RBCs?? Type and Screen?? Primary Care Provider Name Emmanuel SANTA? Advance Directive Health Care Proxy on File Yes - Health Care Proxy Discharge Vitals Temperature: 98.2 DegF Height: 193 cm Pulse Rate: 83 bpm Weight: 123.1 kg Respiratory Rate: 18 br/min Body Mass Index:??34.01 kg/m2??Critical Systolic Blood Pressure:??153 mm Hg??High Body surface area: 2.61 Systolic Blood Pressure:??153 mm Hg??High ?? Diastolic Blood Pressure: 73 mm Hg ?? Diastolic Blood Pressure: 73 mm Hg ?? Oxygen Saturation: 95 % ?? Studies Pending All studies ordered during this hospital stay have been completed unless listed below. Please discuss all pending results with your provider listed above in these instructions. ?? Add On Lab Order?? Basic Metabolic Panel?? RBCs for Surgery?? Transfuse RBCs?? What to do next Instructions From Your Doctor ?? Orders?? Unit Discharge Criteria Met, ??do not dc until patient voiding independently, ??06/06/25 8:35:00 EDT?? Prescriptions??, ??06/06/25 8:35:00 EDT , ??labs script, ??06/06/25 8:35:00 EDT?? Scheduled Follow-Up Appointments 2024 3:00 PM EDT ?? Type: Post-Op With: Tia Uriostegui NP Where: [facility] [address] [place], [place] [id number]- Status: Pending Discharge Medications RYAN CHAN :1960 Visit Date:06/03/2025 Medications: Please continue your medications until treatment is completed or stopped by your provider. Medications not listed below should be discontinued. Discuss any questions related to medications with your provider. What How Much When Instructions Next Dose New Acetaminophen (acetaminophen 325 mg oral tablet) 650 Milligram Oral Every 4 hours as needed for Pain , Mild Ordering Physician: Bubba JARVIS, Kimberly Fournier As needed New Clopidogrel (Plavix 75 mg oral tablet) 75 Milligram Oral Daily Duration: 90 Days Ordering Physician: Kimberly Mac NP at [facility] 3 Tomorrow 06/07 in a.m. New Oxycodone (oxyCODONE 5 mg oral tablet) 5 Milligram Oral Every 6 hours as needed for Pain , Severe Duration: 5 Days Ordering Physician: Kimberly Mac NP at [facility] 3 As needed New Tamsulosin (Flomax 0.4 mg oral capsule) 0.4 Milligram Oral Daily Ordering Physician: Kimberly Mac NP at [facility] 3 Tomorrow 06/07 in a.m. Unchanged Allopurinol (allopurinol 100 mg oral tablet) 1 tab(s) Oral Daily Tomorrow 06/07 in a.m. Unchanged Amlodipine (amLODIPine 5 mg oral tablet) 1 tab(s) Oral Daily Tomorrow 06/07 in a.m. Unchanged Amoxicillin (amoxicillin 500 mg oral capsule) Special Instructions: 4 each, 0 Refill(s), TAKE 4 CAPSULES BY MOUTH ONCE A MONTH 30 TO 60 MINUTES BEFORE DENTAL PROCEDURE ?? Unchanged Aspirin (aspirin 81 mg oral delayed release tablet) 1 tab(s) Oral Daily Tomorrow 06/07 in a.m. Unchanged Atorvastatin (atorvastatin 80 mg oral tablet) 1 tab(s) Oral Daily Tomorrow 06/07 in a.m. Unchanged Carvedilol (carvedilol 3.125 mg oral tablet) 1 tab(s) Oral Twice a day Tonight 06/06 in evening Unchanged Cyanocobalamin (Vitamin B12 1000 mcg oral tablet) 1 tab(s) Oral Daily Tomorrow 06/07 in a.m. Unchanged Losartan (losartan 50 mg oral tablet) Special Instructions: TAKE 1 TABLET BY MOUTH EVERY DAY ?? Tomorrow 06/07 in a.m. Unchanged Nitroglycerin (nitroglycerin 0.4 mg sublingual tablet) Special Instructions: PLEASE SEE ATTACHED FOR DETAILED DIRECTIONS ?? As needed Pharmacy Information [facility] 3: [address] [place] [address] [phone] ?? What How Much When Comments Stop Taking Colchicine (colchicine 0.6 mg oral capsule) 1 capsule Oral Daily Stop Taking PredniSONE (predniSONE 20 mg oral tablet) Special Instructions: 20 each, 0 Refill(s), PLEASE SEE ATTACHED FOR DETAILED DIRECTIONS ?? Prescription Given During Visit Clopidogrel (Plavix 75 mg oral tablet) - 75 mg, By Mouth, Daily, # 90 tablet, 0 Refills, [facility], [address] [place] [id number] [phone]?? Oxycodone (oxyCODONE 5 mg oral tablet) - 5 mg, By Mouth, Every 6 hours, # 20 tablet, 0 Refills, [facility] [address] [address] [phone]?? Tamsulosin (Flomax 0.4 mg oral capsule) - 0.4 mg, By Mouth, Daily, # 30 capsule, 0 Refills, [facility], [address] [place] [id number] [phone]?? Laboratory Results Below is a partial list of the most recent Laboratory test results done prior to this discharge. You may have had other tests and procedures not included in this list. Please discuss all test resultswith your provider. Est Creatinine Clearance - 66.75 mL/min (06/06/2025) RBC Available - PT (06/03/2025) RBC Unit ID - [id number] (06/03/2025) ABG POC CARTRIDGE (06/03/2025) ???pH (POC) POC Cartridge - 7.30???pCO2 (POC) POC Cartridge - 39.3 mm Hg???pO2 (POC) POC Cartridge - 146 mm Hg???Estimated Bicarbonate (POC) POC Cart - 19.3 mmol/L???% O2 Sat Arterial (POC) POC Cartridge - 99 %???Specimen Type - Blood Gas - ARTERIAL BASE EXCESS POC CARTRIDGE (06/03/2025) ???Base Excess (POC) POC Cartridge - NEGATIVE 7 BUN (06/06/2025) ???BUN - 26 mg/dL CALCIUM IONIZED POC CART (06/03/2025) ???Ionized Calcium (POC) POC Cartridge - 1.22 mmol/L CBC (06/06/2025) ???WBC - 12.0 k/mm3???RBC - 2.65 m/mm3???Hgb - 8.0 Gm/dL???Hct - 24.1 %???MCV - 90.9 femtoliters???MCH - 30.2 pg???MCHC - 33.2 Gm/dL???Platelet Count - 140 k/mm3???RDW-SD - 45.8 femtoliters???MPV - 11.7 femtoliters???Nucleated RBC (Automated) - 0.7 #/100 WBC'S???Abs. NRBC - 0.1 k/mm3 COMPLEMENT C3 (06/04/2025) ???Complement C3 - 100 mg/dL COMPLEMENT C4 (06/04/2025) ???Complement C4 - 14 mg/dL Creatinine (06/06/2025) ???Creatinine-Blood - 1.39 mg/dL???Estimated GFR Creatinine - 57 ML/MIN/1.73 M2 Electrolytes (06/04/2025) ???Sodium - 136 mmol/L???Potassium - 5.4 mmol/L???Chloride - 106 mmol/L???Bicarbonate Level - 19 mmol/L???Anion Gap - 11 mmol/L Glucose Level (06/06/2025) ???Glucose Level - 113 mg/dL GLUCOSE POC CARTRIDGE (06/03/2025) ???Glucose (POC) POC Cartridge - 280 H + H (06/04/2025) ???Hgb - 10.4 Gm/dL???Hct - 30.2 % HEMATOCRIT POC CARTRIDGE (06/03/2025) ???Hematocrit (POC) POC Cartridge - 32 % HEMOGLOBIN POC CARTRIDGE (06/03/2025) ???Hemoglobin (POC) POC Cartridge - 10.9 Gm/dL Ionized Calcium (06/06/2025) ???Calcium, Ionized pH Corrected - 1.14 mmol/L LDH (06/04/2025) ???LDH - 368 units/L Lytes (06/06/2025) ???Sodium - 134 mmol/L???Potassium - 3.9 mmol/L???Chloride - 101 mmol/L???Bicarbonate Level - 23 mmol/L???Anion Gap - 10 mmol/L Magnesium Level (06/06/2025) ???Magnesium - 2.3 mg/dL Phosphorus Level (06/06/2025) ???Phosphorus - 2.5 mg/dL POC Hemochron ACT-LR (06/03/2025) ???POC ACT-LR - 117.0 seconds POTASSIUM POC CARTRIDGE (06/03/2025) ???Potassium (POC) POC Cartridge - 5.2 mmol/L SODIUM POC CARTRIDGE (06/03/2025) ???Sodium (POC) POC Cartridge - 139 mmol/L Type and Screen (06/03/2025) ???Blood Type - A Positive???Antibody Screen - Negative Allergies (NKA means No Known Allergies) lisinopril Problems Active Problems??(6) CAD (coronary artery disease)?? Current nicotine use?? Hyperlipidemia?? Hypertension?? Obese class I?? Right internal carotid occlusion?? Education Materials Below is the list of Educational Leaflet Providered with your Discharge Instructions. [employer] Ignite Patient Education - BVS-Femoral Endarterectomy Post Operative Discharge Instruction?? Valuables and Belongings I fully understand and agree that [facility] accepts no responsibility for all my personal property including clothing, toilet articles, radios, jewelry, dentures, hearing aids, rings, money, or any other property that is in my possession or is brought to me after admission. I understand certain valuables may be placed in a hospital safe for a short period of time. I understand that the hospital is not liable for loss or damage due to accident, fire, or other natural occurrence while said property is in the safe. I accept full responsibility for any personal property that I keep with me, and will not hold the hospital responsible in case of loss or disappearance. I acknowledge that i have been encouraged to send valuables and belongings home. ?? Review of Valuable and Belonging List: With patient Disposition of Belongings: Valuables Locked Date for Pt to Sign Valuables/Belongings: 06/03/25 10:39:00 ?? Valuables & Belongings ?? Clothes Electronic devices Jewelry Monetary Items Personal devices Miscellaneous Medications (Valuables) Valuables at Bedside Pants, Shirt, Shoes, Undergarments Cell phone ? Glasses ? Valuables Sent Home ? Valuables Sent to Security ? Valuables Sent to [facility] ? Other Discharge Information ? Case Management Discharge Plan?? Discharge Plan?? Discharge Agency Information?? Discharge Level of Care at Discharge: Homehealth/VNA Name of Agency #1: [facility] Discharge Transportation Arranged: family Agency Er Registrar #1: intake Mode of Transportation Arranged: Other Service Categories #1: Physical Therapy, [facility] Discharge VNA/Hospice/Home Care: [facility] [phone] Service Comments #1: you are being discharged home with VNA services through [facility]. if you do not hear from them with in 24/48 hours of discharge- please reach out to agency ?? Pulmonary Rehab Status?? Pulmonary Rehab Discharge Status?? Respiratory Rate: 18 br/min ? Common Emergency Awareness Tips IS IT A STROKE? Act FAST and Check for these signs: FACE Does the face look uneven? ARM Does one arm drift down? SPEECH Does their speech sound strange? TIME Call at any sign of stroke ?? Heart Attack Signs Chest discomfort: Most heart attacks involve discomfort in the center of the chest and lasts more than a few minutes, or goes away and comes back. It can feel like uncomfortable pressure, squeezing, fullness or pain. Discomfort in upper body: Symptoms can include pain or discomfort in one or both arms, back, neck, jaw or stomach. Shortness of breath: With or without discomfort. Other signs: Breaking out in a cold sweat, nausea, or lightheaded. Remember, MINUTES DO MATTER. If you experience any of these heart attack warning signs, call to get immediate medical attention! ?? Smoking can increase your chances of developing chronic health problems and can cause harmful effects to other family members in your house. If you smoke, you are strongly encouraged to quit. Please call [facility] at [phone] or [phone] ([phone]) or log in to [email or web address] for referrals to smoking cessation programs. ?? 558 Suicide & Crisis Lifeline is available 29/04 if you or someone you know needs to find a reason to keep living. By calling 335 you'll be connected to a skilled, trained counselor at a crisis center in your area. INPATIENT DISCHARGE INSTRUCTIONS SIGNATURE PAGE CRISTIANO CHANNE Location:[facility] Registration Date and Time:06/03/2025 08:25 EDT Primary Care Physician: Emmanuel Menjivar MD, Attending Physician: Dipti SANTA, Tori Prakash, I RYAN CHAN, have received the above patient education materials/instructions and have verbalized understanding. If ambulance or transport services are being used I further acknowledge being given a choice of service. ?? If you need to contact me, please call me at this number: . Patient/Ultrasound Spec Name: Patient/Ultrasound Spec Signature: Relationship to Patient: Witness Name/Signature: Date: * Bubba JARVIS Kimberlychantal Fournier: PERFORM Event Display: Patient Education Leaflets Authored Date: [id number] BVS-Femoral Endarterectomy Post Operative Discharge Instruction ?? 54 Femoral Endarterectomy Post Operative Discharge Instructions ?? You are being discharged from the hospital.?? Here is information related to your condition to helpyou when you get home.?? In addition, you may have been given the [facility] heart and vascular patient education book.?? This book provides written information and instruction for you to review at home with your family.? Special Instructions Post Operative Discharge Care Instructions Bathing ??? You can take a shower after you are discharged from the hospital if your incision is closed andnot draining on Post-Op Day #5. If you are unsteady on your feet use a shower chair.?? Do not take tub baths. ??? You may need assistance with showering the first few days or wait until you feel steady and safe on your feet. ?? Incision Care ??? Keep your incision clean and dry.?? Use only soap andwater to cleanse the area around the incision.?? Once the incision is healed you may wash over the incision with a soft wash cloth and soap and water.? Avoid using perfumed soaps or body washes, lotions, creams, oils or ointments on your incision. This may irritate your incision and put you at risk for an infection. ??? Check your incision daily for drainage, redness, increased tenderness or edges pulling apart.?? Some bruising and discoloration is normal in the first week following surgery. ??? If your incision is still draining, you will learn how to apply dry clean dressings.? If you have steri strips on your incision, remove them on Post-Op Day #5. ?? Limb Elevation ??? You may experience some leg swelling following surgery.?? If leg swelling does occur, check with your doctor for prescription elastic stockings ??? It is important that you are not sitting for long periods of time with feet down.?? Elevate your legs as much as possible. ??? If you notice swelling, elevate your legs at or above heart level while seated.?? If swelling continues or worsens call the vascular surgery office. ?? Activity ??? Gradually increase your activity.?? This will promote wound healing.?? Remember to alternate periods of activity with periods of rest.?? Talk to your doctor before beginning an exercise program.? Avoid lifting anything over 10 pounds until cleared by surgeon.?? A gallon of milk is approximately 8 pounds.? It is important to continue to do the coughing and deep breathing exercises to help prevent breathing complications. ?? Driving ??? You shouldn???t drive until cleared by your vascular Surgeon.?? You may be a passenger, but avoid long rides where your feet are hanging down for an extended period of time. ??? Always wear a seat belt. ?? Sexual Relations ??? You may resume sexual activity as soon as you feel comfortable. ?? Emotions ??? It is common for people to feel more emotional or have difficulty concentrating or remembering after major surgery.?? These emotions may be the result of anesthesia, medications, not knowing whatto expect and difficulty doing simple tasks without becoming tired.? These feelings are temporary and usually go away as you get back to your normal routine and activities.? Pain ??? You may have some muscle or incision discomfort. You will be given prescription medication for the pain and use it if you need it.? Call the Vascular SURGEON ? For any incision redness, swelling, tenderness, drainage, or odor. ??? For a temperature of 101.5 degrees F or greater. ??? For unusual or severe leg pain, loss of sensation or movement, coldnessor discoloration of the legs, and any skin breakdown of the foot. ?? Seek care IMMEDIATELY if? You have bad pain in your abdomen, back or side unusual pain or numbness of leg, thigh or calf or sudden loss of movement in your leg ??? Your feet become very cold, or turn pale or blue ??? You have trouble breathing all of a sudden ??? Your stitches or norma come apart of separate ??? Your incision suddenly starts bleeding and/or your dressing becomes soaked with blood ?You have signs of a heart attack:?? CALL 911 right away. You may need an ambulance to take you to the hospital. Do not drive yourself or wait for your doctor to call you back.?? Signs of a heart attack may be: o Chest pain or discomfort, including squeezing, crushing, pressure, tightness or heaviness in the chest. o Pain or discomfort in your arms, shoulders, neck, back or jaw. o Indigestion, such as heartburnand upset stomach. o Nausea (feel sick to your stomach) and vomiting (throwing up). o Pain in your abdomen (stomach). o Shortness of breath. o Sweating, weakness or fainting (passing out). Follow-up ??? A follow up appointment should be made with your surgeon for 2 weeks following discharge.?? If you do not have an appointment scheduled already, make an appointment when you get home.?? Follow upcare is important; it is strongly encouraged for you to keep your appointment. You may have more than one appointment, one with your surgeon and one with your primary care doctor. ??? Be sure to see your primary care physician 1-2 weeks after hospital discharge. ??? Ask your doctor when you can return to work. ??? If you have any questions, please call the vascular surgeons at [phone]. ?? Heart and Vascular Healthy Living You can make style changes that can help lower your risk for heart and vascular disease.?? The following information can help you get started or maintain your current lifestyle. Diet ??? Eat a low fat, low cholesterol diet. ??? Eating 3 to 4 small meals daily may be better tolerated than 1-2 large meals daily ??? Limit caffeine and alcohol use ??? Limit the amount of salt in your diet Exercise ??? Routine regular or prescribed exercise is strongly encouraged. ??? Avoid strenuous exercise after meals Smoking ??? If you smoke, you are strongly encouraged to quit.? Smoking can increases blood pressure, decrease exercise tolerance and increase the tendency for blood to clot, decrease HDL (good) cholesterol and creates a higher risk for having a heart attack, stroke or other vascular events.? If you are ready to quit, please let us know; Referrals to smoking cessation programs are available. Lowering your cholesterol ??? Talk to your doctor about taking medicine for high cholesterol. Diet and exercise may not loweryour cholesterol enough. Cholesterol medicines may help prevent further cholesterol build up in thearteries. High blood pressure and diabetes ??? If you have high blood pressure or diabetes, continue with your prescribed treatments.?? These health problems if not controlled can put you at risk for having a heart attack, stroke or other vascular events. Stress ??? Stress may slow healing and cause illness later. Since it is hard to avoid stress, learn to control it. Learn new ways to relax (deep breathing, relaxing muscles, meditation, or biofeedback). Talk to your caregiver about things that upset you. ?? Medication Information Take all your medicationsas prescribed.?? Many medications have more than one name. Be sure you know the name of your medication.?? Call your physician if you have any questions after you get home.?? Keep a written list ([employer]) of what medicines you take and when and why you take them. Bring the list of your medicines or the pill bottles when you see your caregivers. Learn why you take each medicine. Ask your caregiver for information about your medicine. Depending on your condition, you may have other medicines prescribed as part of your discharge plan of care.?? Some may include: ??? Pain Medication :?? Pain medications may be prescribed after surgery.?? Controlling your pain is important to help you heal and increase your activity level.?? One of the side effects of pain medication is constipation.?? If you are taking pain medication on a regular basis, it is important to also take a stool softener that is prescribed. Also, adding high fiber foods, fiber medicines and prune juice may help.? Antibiotics :?? You may be prescribed antibiotics following surgery.?? This medicine may be given to help you fight infection. It is important for you to finish the prescription. ??? IVETH inhibitors : These are medicines that keep your blood vessels relaxed and open. They help keep oxygen-rich blood flowing into your heart. These medicines may be used to treat high blood pressure and prevent your heart muscle from weakening. ??? Aldosterone Inhibitors : These medicines prevent scar tissue from forming in your heart.?? It also helps with eliminating extra salt and water. ??? Angiotensin Receptor Blockers (ARB): These medicines lower blood pressure and prevent your heart muscle from weakening. These medicines are used for patients who can not tolerate IVETH Inhibitors. ??? Beta-blockers : These medicines keep your heart pumping strongly and regularly and may also lower your blood pressure. Beta blockers lower blood pressure, prevent chest pain and irregular heart beats. ??? Digoxin: This medicine keeps your heart rate slow if your heart is in an irregular rhythm.?? Digoxin may improveactivity tolerance as well.? Diuretics: ?? These medicines help the heart work better by decrea sing the extra fluid in your body.?? Getting rid of the extra fluid will help your heart to not work so hard.?? These medicines may need to be adjusted by your doctor. ??? Vasodilators : These medicines decrease the pressure in your arteries, especially in the vessels around your heart. ??? Anti-coagulants: These medicines help keep the blood from clotting in an artery, vein or the heart. Clots can block the blood flow to your heart muscle and cause a heart attack.?? Clots can also block blood flow to your brain, causing a stroke. ??? Anti-platelets : Anti-platelet medicines, such as aspirin,keep platelets from sticking to a damaged part of your artery. Sticky platelets may cause a blockage in your artery and keep blood from going to your heart muscle. ??? Blood pressure (Anti-hypertensives): These medicines may be given to lower your blood pressure. Keeping your blood pressure under control protects your heart, lungs, brain, kidneys, and other organs. ??? Cholesterol lowering medicines: These help to lower cholesterol that causes coronary (heart) artery disease. ??? Diabetes medicines : These may be given to control the amount of sugar in your blood. It helps your body move thesugar from the blood to your cells, where it is needed for energy. ??? Nitroglycerin: This medicinemay also be called nitro. Nitroglycerin opens the arteries to your heart so the heart gets more oxygen. Nitroglycerin can be given in an IV, by mouth, or put on your body as a patch or paste. ? Patient Care team information Care Team Personnel Name: Radha Tong NP Position: S Associate Professional Member Role: [employer] Provider Address: [address] [facility] [place] [address]- Telecom: Name: Mirna Figueroa RN Position: S RN Member Role: Primary Care Nurse Name: Emmanuel Menjivar MD Position: S Outreach Member Role: PCP Address: [address] [place] [phone]- Telecom: Name: Ca Jean RN Position: S RN Member Role: Primary Care Nurse Name: Taya Petit RN Position: S RN Member Role: Primary Care Nurse Care Team Related Persons Name: TAMARA CHAN Name: ARMANDO CHAN JR Insurance Providers Guarantor name: [facility] Plan Information #: 1 Payer: [employer] Payer Identifier: NAILA Member Number: [id number] Group Number: [id number] Subscriber Identifier: [id number] Relationship to Subscriber: self Coverage Type: MEDICAID Coverage Verification Date: NA Telecom: NA Address:
--- NOTE | ~2025-06-11 | XR_ITS ---
CLINICAL HISTORY: dyspnea Two views of the chest. COMPARISON: None provided. FINDINGS: Status post sternotomy. Normal heart and mediastinal contours. No consolidation. No pleural effusion or pneumothorax. Marginal osteophytes present throughout the midthoracic spine. No acute fracture. IMPRESSION: 1. No consolidation. This document has been electronically signed by: Gustavo Summers MD on 06/11/2025 17:40:45
[2025-06-11 17:11] VITALS: BP 152/70; PULSE 92; RESP 18; TEMP 36.7; O2SAT 98; BMI 32.4
--- NOTE | 2025-06-11 17:11 | ED.GENADULT ---
HPI - General Adult General Chief complaint: Dyspnea Stated complaint: difficulty breathing (Vasc. surgery 7d) sent by Related Data Home Medications ?Medication ?Instructions ?Recorded ?Confirmed atorvastatin 80 mg tablet 80 mg PO BEDTIME 08/02/20 04/26/23 ascorbic acid (vitamin C) 500 mg 500 mg PO DAILY 08/02/21 04/26/23 tablet (Vitamin C) allopurinol 200 mg tablet 200 mg PO DAILY 06/30/24 amlodipine 10 mg tablet 10 mg PO QAM 06/30/24 amoxicillin 500 mg capsule mg PO 06/30/24 aspirin 81 mg tablet,delayed 81 mg PO DAILY 06/30/24 release carvedilol 3.125 mg tablet 3.125 mg PO Q12H 06/30/24 Previous Rx's ?Medication ?Instructions ?Recorded cyanocobalamin (vitamin B-12) 1,000 mcg PO DAILY #90 tabs 07/26/23 1,000 mcg tablet (Vitamin B-12) Allergies Allergy/AdvReac Type Severity Reaction Status Date / Time No Known Allergies (No Known Allergy Verified 06/11/25 17:13 Allergies*) [facility] Past Medical History Medical History AAA (abdominal aortic aneurysm) Anemia Carotid stenosis, right Cerebral aneurysm Essential hypertension History of pyloric stenosis as a child Hyperlipidemia 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) Peripheral vascular disease Raynauds disease Tubulovillous adenoma Surgical History History of colonoscopy Hx of abdominal surgery Family History Family History Maternal Grandmother Cancer Father Bladder cancer Social History Social History Household Members: [facility] Alcohol intake: current Alcohol intake frequency: a few times a month Patient Tobacco Use Status: Former Tobacco user Tobacco use type: Cigarette Cigarette Packs Per Day: 1 Years Smoked: 20 Advance Directives: No Advance Directives Information Provided: No Current occupational status: 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 Patient is a 65y/o M [facility] of breath and hiccups since bilateral edarterectomies on 06/03. Reports orthopnea, and has not slept since his procedure. Reports at times he has to gasp for air. Plan: labs, CXR Medical Decision Making Lab Data 06/11/25 18:15 06/11/25 18:15 Labs: Lab Results 06/11/25 Range/Units 18:15 WBC 8.1 (4.8-10.8) X10*3/uL RBC 2.39 L D (4.60-5.80) X10*6/uL Hgb 7.5 L D (14.0-18.0) g/dl Hct 22.2 L D (42.0-52.0) % MCV 92.9 (80.0-98.0) fL MCH 31.4 (27.0-33.0) pg MCHC 33.8 (31.0-36.0) g/dl RDW 13.7 (11.0-16.0) % Plt Count 341 (160-400) X10*3/uL MPV 10.1 (9.4-12.4) fL Immature Gran % (Auto) 1.0 H (0.0-0.4) % Neut % (Auto) 57.3 (45-73) % Lymph % (Auto) 26.2 (20-40) % Brooke % (Auto) 12.7 H (2-11) % Eos % (Auto) 2.3 (0-4) % Baso % (Auto) 0.5 (0-2) % Lymph # (Auto) 2.1 (1.2-4.9) X10*3/uL Brooke # (Auto) 1.0 (0.1-1.2) X10*3/uL Eos # (Auto) 0.2 (0.0-0.4) X10*3/uL Baso # (Auto) 0.0 (0.0-0.2) X10*3/uL Abs Immat Gran (auto) 0.08 H (0.00-0.03) X10*3/uL Absolute Neuts (auto) 4.6 (2.0-8.3) x10*3/uL Absolute Nucleated RBC 0.000 (0.0-0.012) X10*3/uL Nucleated RBC % (auto) 0.0 (0.0-0.2) /100WBC PT 11.0 (10.9-12.4) SEC INR 1.0 (0.9-1.1) Sodium 140 (135-145) mmol/L Potassium 3.9 (3.3-5.1) mmol/L Chloride 106 (96-108) mmol/L Carbon Dioxide 25 (22-29) mmol/L Anion Gap 13 (12-20) BUN 25 H (9-16) mg/dL Creatinine 1.44 H (0.5-1.4) mg/dL Estim Creat Clear Calc 74.5 Estimated GFR 50 Random Glucose 105 (60-115) mg/dL Calcium 8.2 L D (8.4-10.2) mg/dL Total Bilirubin 0.4 (0.0-1.0) mg/dL AST 35 (5-37) U/L ALT 64 H (0-40) U/L Alkaline Phosphatase 72 (39-117) U/L Troponin I High Sens 5.9 (<3.5-35.0) ng/L B-Natriuretic Peptide 221 H (<100) pg/mL Total Protein 5.8 L (6.5-8.0) g/dL Albumin 3.5 (3.5-5.0) g/dL Discharge Plan Discharge Clinical Impression: Dyspnea Patient Disposition: Left W/O Completing Treatment Prescriptions: No Action atorvastatin 80 mg Tablet 80 mg PO BEDTIME ascorbic acid (vitamin C) [Vitamin C] 500 mg Tablet 500 mg PO DAILY cyanocobalamin (vitamin B-12) [Vitamin B-12] 1,000 mcg Tablet 1,000 mcg PO DAILY Qty: 90 3RF amoxicillin 500 mg capsule PO amlodipine 10 mg tablet 10 mg PO QAM aspirin 81 mg tablet,delayed release (DR/EC) 81 mg PO DAILY carvedilol 3.125 mg tablet 3.125 mg PO Q12H allopurinol 200 mg tablet 200 mg PO DAILY Discharge Date/Time: 06/11/25 20:16
[2025-06-11 18:20] LABS: MANUAL DIFF FLAG NO
[2025-06-11 18:21] LABS: Hematocrit 22.2 % (42.0-52.0); Hemoglobin 7.5 g/dl (14.0-18.0); Imm Gran Abs Auto 0.08 X10*3/uL (0.00-0.03); Imm Gran Pct Auto 1.0 % (0.0-0.4); Lymphocytes Absolute Auto 2.1 X10*3/uL (1.2-4.9); Mean Corpuscular HGB Conc 33.8 g/dl (31.0-36.0); Mean Corpuscular Hemoglobin 31.4 pg (27.0-33.0); Mean Corpuscular Volume 92.9 fL (80.0-98.0); NRBC Abs Auto 0.000 X10*3/uL (0.0-0.012); NRBC Pct Auto 0.0 /100WBC (0.0-0.2); Platelet Count 341 X10*3/uL (160-400); Red Blood Count 2.39 X10*6/uL (4.60-5.80); White Blood Count 8.1 X10*3/uL (4.8-10.8)
[2025-06-11 18:29] LABS: INTERNATIONAL NORM RATIO 1.0 (0.9-1.1); Prothrombin Time 11.0 SEC (10.9-12.4)
[2025-06-11 18:41] LABS: B Type Natriuretic Peptide 221 pg/mL (<100)
[2025-06-11 18:42] LABS: Alanine Aminotransferase 64 U/L (0-40); Albumin Level 3.5 g/dL (3.5-5.0); Alkaline Phosphatase 72 U/L (39-117); Anion Gap 13 (12-20); Aspartate Amino Transferase 35 U/L (5-37); Blood Urea Nitrogen 25 mg/dL (9-16); Calcium 8.2 mg/dL (8.4-10.2); Carbon Dioxide 25 mmol/L (22-29); Chloride 106 mmol/L (96-108); Creatinine Clr Calc Pharmacy 74.5; Estimated Glomerular Filt Rate 50; Potassium 3.9 mmol/L (3.3-5.1); Sodium 140 mmol/L (135-145); Total Protein 5.8 g/dL (6.5-8.0); Troponin-I High Sensitivity 5.9 ng/L (<3.5-35.0)
--- OUTSIDE RECORDS SUMMARY | 2025-06-11 19:55 | XMS_ITS | Encounter Summary ---
Author Organization [employer] Address [address] [place] [address] Care Team Providers Care Child Welfare Caseworker Name Role Phone Name, Emmanuel SANTA Primary Care Provider [phone] Reason for Visit * Reason Comments Med Refill Encounter Details Date Type Department Care Team ([facility] st Contact Info) Description 07/16/2024 Refill [facility] [address] [place] [address] Name, MD Emmanuel [address] [place] [address] Coronary artery disease involving salamatof coronary artery of salamatof heart without angina pectoris Social History Tobacco Use Types Packs/Day Years Used Date Smoking Tobacco: Never Smokeless Tobacco: Never Alcohol Use Standard Drinks/Week Comments Yes 7 (1 standard drink = 0.6 oz pur e alcohol) Depression Answer Date Recorded Patient Health Questionnaire-9 Score 0 11/08/2023 Patient Health Questionnaire-9 Score 0 11/08/2023 Last PHQ-9: Questionnaire Data Not on file 0 11/08/2023 Housing Stability Answer Date Recorded What is your housing situation today? I have juan barton 11/08/[address] you li ve. Do you have problems with any of the following? None of the above 11/08/2023 Food Insecurity Answer Date Recorded Within the past 12 months, y ou worried that your food would run out before you got money to buy more: Never True 11/08/2023 Within the past 12 months,th e food you bought just didn't last and you didn't have enough money to get more: Never True 11/2023 Transportation Answer Date Recorded In the past 12 months, has l ack of transportation kept you from medical appts, meetings, work or from getting things needed for daily living? No 11/08/2023 Utilities Answer Date Recorded In the past 12 months, has t he electric, gas, oil or water company threatened to shut off services in your home? No 11/08/2023 Depression Answer Date Recorded Patient Health Questionnaire-2 Score 0 11/08/2023 Sex and Gender Information Value Date Recorded Sex Assigned at Male 08/06/2022 10:31 AM EDT Legal Sex Male 10:31 AM EDT Gender Identity Male 08/06/2022 10:31 AM EDT Sexual Orientation Straight 08/06/2022 10 :31 AM EDT documented as of this encounter Plan of Treatment Not on file documented as of this encounter Visit Diagnoses Diagnosis Coronary artery disease involving salamatof coronary artery of salam[place] heart without angina pectoris documented in this encounter Additional Health Concerns Assessment Noted Time PHQ-9 Depression Total Score: 0 11/08/19 24 8:54 AM EST documented as of this encounter Care Teams Child Welfare Caseworker Relationship Specialty Start Date End Date Name, MD Emmanuel [address] [place] [id number] PCP - General Family Medicine 05/04/19 documented as of this encounter
--- OUTSIDE RECORDS SUMMARY | 2025-06-11 19:55 | XMS_ITS | Encounter Summary ---
Author Organization [employer] Address [address] [facility] 7t [place] [address] Care Team Providers Care Janitor Cleaner Name Role Phone Name, Emmanuel SANTA Primary Care Provider [phone] Reason for Visit * Reason Onset Date Comments Med Refill 08/05/2023 Encounter Details Date Type Department Care Team (Late st Contact Info) Description 08/05/2023 Telephone [facility] MEDICINE [address] [place], [place] [phone] Name, MD Emmanuel [address] [place] [address] Med Refill Social History Tobacco Use Types Packs/Day Years Used Date Smoking Tobacco: Never Smokeless Tobacco: Never Alcohol Use Standard Drinks/Week Comments Never 0 (1 standard drink = 0.6 oz pur e alcohol) Depression Answer Date Recorded Patient Health Questionnaire-9 Score 0 09/19/2022 Housing Stability Answer Date Recorded What is your housing situation today? I have juanamandeep barton 07/30/[address] you li ve. Do you have problems with any of the following? None of the above 07/30/2023 Food Insecurity Answer Date Recorded Within the past 12 months, y ou worried that your food would run out before you got money to buy more: Never True 07/30/2023 Within the past 12 months,th e food you bought just didn't last and you didn't have enough money to get more: Never True Transportation Answer Date Recorded In the past 12 months, has l ack of transportation kept you from medical appts, meetings, work or from getting things needed for daily living? No 07/30/2023 Utilities Answer Date Recorded In the past 12 months, has t he electric, gas, oil or water [employer] threatened to shut off services in your home? No 07/30/2023 Depression Answer Date Recorded Patient Health Questionnaire-2 Score 0 09/19/2022 Sex and Gender Information Value Date Recorded Sex Assigned at Male 08/06/2022 10:31 AM EDT Legal Sex Male 10:31 AM EDT Gender Identity Male 08/06/2022 10:31 AM EDT Sexual Orientation Straight 08/06/2022 10 :31 AM EDT documented as of this encounter Miscellaneous Notes * Telephone Encounter - Kimberly Jones LPN - 08/05/2023 11:55 AM EDT Medication is prescribed elsewhere. * Telephone Encounter - Edyta Linton - 08/05/2023 11:51 AM EDT Tc from pt requesting medication refill on cyanocobalamin (vit B-12) 1,000 mcg [id number] [address] documented in this encounter Plan of Treatment Not on file documented as of this encounter Visit Diagnoses Not on filedocumented in this encounter Additional Health Concerns Assessment Noted Time PHQ-9 Depression Total Score: 0 09/19/20 22 2:14 PM EST documented as of this encounter Care Teams Janitor Cleaner Relationship Specialty Start Date End Date Name, MD Emmanuel [address] [place] [address] PCP - General Family Medicine 05/04/19 documented as of this encounter
--- OUTSIDE RECORDS SUMMARY | 2025-06-11 19:55 | XMS_ITS | Clinical Summary ---
Author Organization [employer] Address [address] [facility] 7t [place] [address] Care Team Providers Care Chaser Helper Name Role Phone Name, Emmanuel SANTA Primary Care Provider [phone] Allergies No known active allergies Medications nitroglycerin (Nitrostat) 0.[address] 1 tablet under the tongue. place 1 tablet by sublingual route at 1st sign of attack; may repeat every 5 minutes up to 3 tabs; if norelief seek medical help 07/27/20 22 Active cyanocobalamin (Vitamin B-12) 1000 MCG tablet TAKE 1 TABLET BY MOUTH EVERY MORNING 90 tablet 3 07/24/20 24 Active predniSONE (Deltasone) 20 MG tablet TAKE 3 TABS BY MOUTH FOR 3 DAYS, AND THEN 2 TAB FOR 3 DAYS, AND THEN 1 TAB FOR 3 DAYS, AND THEN 1/2 FOR 4 DAYS. AT FIRST SIGN OF GOUT FLARE 20 tablet 10/02/20 24 Active losartan (Cozaar) 50 MG tabletIndication s:Essential hypertension Take 1 tablet (50 mg) by mouth Once per day. 30 tablet 11 10/09/19 25 026 Active amoxicillin (Amoxil) 500 MG capsuleIndicatio ns:Hx of ascending aorta replacement TAKE 4 CAPSULES BY MOUTH ONCE A MONTH 30 TO 60 MINUTES BEFORE DENTAL PROCEDURE 4 capsule 12/01/19 25 Active amLODIPine (Norvasc) 10 MG tabletIndication s:Coronary artery disease involving nulato coronary artery of nulato heart without angina pectoris TAKE 1 TABLET BY MOUTH EVERY DAY IN THE MORNING 90 tablet 1 04/02/20 25 Active carvedilol (Coreg) 3.125 MG tabletIndication s:Essential hypertension TAKE 1 TABLET (3.125 MG) BY MOUTH EVERY 12 (TWELVE) HOURS. 180 tablet 1 04/08/20 25 Active atorvastatin (Lipitor) 80 MG tablet TAKE 1 TABLET BY MOUTH EVERYDAY AT BEDTIME 90 tablet 05/03/20 25 Active allopurinol (Zyloprim) 100 MG tabletIndication s:Gout, unspecified cause, unspecified chronicity, unspecified site TAKE 2 TABLETS (200 MG) BY MOUTH IN THE MORNING 180 tablet 1 05/24/20 25 Active Aspirin Low Dose 81 MG EC tablet TAKE 1 TABLET BY MOUTH EVERY DAY 90 tablet 3 06/11/20 25 Active Aspirin Low Dose 81 MG EC tablet TAKE 1 TABLET BY MOUTH EVERY DAY 90 tablet 3 05/08/20 24 025 Discontinued allopurinol (Zyloprim) 100 MG tabletIndication s:Gout, unspecified cause, unspecified chronicity, unspecified site TAKE 2 TABLETS (200 MG) BY MOUTH IN THE MORNING 180 tablet 1 10/08/19 25 025 Discontinued Active Problems Problem Noted Date Diagnosed Date Defective dental muslim 12/04/2024 Dental calculus 12/04/2024 Decreased hearing 08/28/2024 Normal oral exam 06/01/2024 Age-related nuclear cataract, bilateral 08/07/20 23 08/07/2023 Encounter for fitting and ad justment of spectacles and contact lenses 08/07/2023 08/07/2023 Homonymous bilateral field defects, left side 08/07/2023 Open angle with borderline findings, low risk, b ilateral 08/07/2023 08/07/2023 Personal history of transien t ischemic attack (TIA), and cerebral infarction without residual deficits 08/07/2023 08/07/20 23 Obesity 04/10/2023 Congestive heart failure 04/10/2023 Ischemic myocardial dysfunction 04/10/2023 Old myocardial infarction 04/10/2023 Right internal carotid occlusion 04/10/2023 Gout 12/10/2022 Hx of ascending aorta replacement 11/02/2022 Arteriosclerosis of coronary artery 09/19/2022 Overview (11/07/2023): Aug 18, 2023 Entered By: CHARMAINE YOUSIF Comment: (s/p CABGx3 09/2022 Peripheral vascular disease 09/13/2022 Prediabetes 09/13/2022 Aneurysm of ascending aorta 09/13/2022 Overview (11/07/2023): Aug 18, 2023 Entered By: CHARMAINE YOUSIF Comment: s/p repair 09/2022 History of smoking 09/13/2022 Hx of CABG 09/03/2022 Overview (09/19/2022): At [facility] Intracranial aneurysm 03/05/2019 Abdominal aortic aneurysm without rupture 2017 Cotton wool spots 02/19/2018 Benign adenomatous neoplasm 01/14/2018 Dilatation of aorta 01/14/2018 Intermittent claudication of both lower extremities due to atherosclerosis 01/14/2018 Aneurysm of artery of upper extremity 07/30/2017 Cerebral infarction due to stenosis of carotid a rtery 07/10/2017 Overview (08/07/2023): Aug 06, 2021 Entered By: CHARMAINE YOUSIF Comment: YUE stenosis Essential hypertension 07/10/2017 Overview (08/07/2023): Aug 02, 2021 Entered By: CHARMAINE YOUSIF Comment: #ECHO 2018 LVH EF 66%, grade I diastolic dysfunction Hyperlipidemia 07/10/2017 Normocytic anemia 07/10/2017 Raynaud's phenomenon 07/10/2017 Encounters Date Type Department Care Team Description 06/11/2025 Refill [facility] MEDICINE [address] [place] [address] Name, MD Emmanuel 06/08/2025 Patient Outreach [facility] & [facility] [address] [place], [place] [phone] Name, MD Emmanuel Transition Of Care (Tcm) (HDF Unscheduled. ) 05/22/2025 Refill [facility] MEDICINE [address] [place], [place] [phone] NameEmmanuel MD Gout, unspecified cause, unspecified chronicity, unspecified site 05/01/2025 Refill [facility] MEDICINE [address] [place], [place] [phone] NameEmmanuel MD 04/08/2025 Refill [facility] MEDICINE [address] [place] [address] Myrna Bennett NP Essential hypertension 04/02/2025 Refill [facility] [place] [address] Name, MD Emmanuel Coronary artery disease involving nulato coronary artery of nulato heart without angina pectoris from Last 3 Months Immunizations Immunization Administration Dates Next Due Influenza injectable quadriv alent preservative free 07/28/2023,06/26/2022,06/11/2021,05/11,06/02/2019,06/26/2018 Influenza, IIV3, injectable 06/21/2017 Influenza, Unspecified 07/26/2023,07/17/2022, Influenza, seasonal, injecta ble, preservative free 06/21/2017 Moderna Covid-19 Vaccine 12+ 01/06/2021,12/10/19 21 Pfizer Covid-19 Vaccine 12+ 08/21/2021 Pfizer Covid-19 Vaccine 12+ italo-sucrose (Flores Cap) 03/13/2022,08/21/2021 Pneumococcal Conjugate PCV 20 08/07/2023 Pneumococcal Polysaccharide PPSV23 08/03/2021 RSV Adjuvant 11/11/2023 Tdap 05/11/2020,07/10/2017 Zoster, Recombinant 05/23/2019,03/09/2019 Social History Tobacco Use Types Packs/Day Years Used Date Smoking Tobacco: Never Passive Smoke Exposure: Never Smokeless Tobacco: Never Tobacco Cessation:Counseling Given: Not Answered Alcohol Use Standard Drinks/Week Comments Yes 7 [...] Orientation Straight 08/06/2022 10 :31 AM EDT Last Filed Vital Signs Vital Sign Reading Time Taken Comments Blood Pressure 141/86 02/17/2025 9:58 AM EDT Pulse 77 02/17/2025 9:58 AM EDT Temperature 36.8 C (98.3 F) 10/02/2024 9:44 AM EST Respiratory Rate 12 02/17/2025 9:58 AM EDT Oxygen Saturation 98% 02/17/2025 9:58 AM EDT Inhaled Oxygen Concentration - - Weight 120 kg (264 lb) 02/17/2025 9:58 AM EDT Height 182.9 cm (6') 10/02/2024 9:44 AM EST Body Mass Index 35.8 10/02/2024 9:44 AM EST Plan of Treatment Health Maintenance Due Date Last Done Comments CT Colonography 1962 FIT DNA/Cologuard 1962 HIV Screening 1962 Sigmoidoscopy 1962 Alcohol/Substance Use Screening 1974 Hepatitis C Screening 01/23/1980 Diabetes: Hemoglobin A1C 03/13/2023 03/13/2022 Dental X-Ray: Full Mouth 10/26/2023 10/25/2020 Depression Screening 11/08/2024 11/08/2023, 11/08/19 24 SDOH Screening 11/08/2024 11/08/2023 Colonoscopy 02/15/2025 02/15/2022 Colorectal Cancer Screening 02/15/2025 Dental X-Ray: Bitewings 06/02/2025 06/01/2024, 11/15 Dental Oral Exam 06/04/2025 12/04/2024, , 08/23/2023, Additional history exists Dental Prophylaxis 06/04/2025 12/04/2024, 0 06/01/2024, 08/23/2023, Additional history exists Influenza Vaccine (#1) 2025 , 07/28/2023, 07/26/2023, Additional history exists FIT 10/20/2025 10/20/2024 FOBT 10/20/2025 10/20/2024 Disability Screening 02/17/2026 02/17/2025 Tobacco Screening 02/17/2026 02/17/2025 Lipid Panel 08/25/2029 08/25/2024, 05/08, 08/08/2023, Additional history exists DTaP/Tdap/Td Vaccines (3 - Td or Tdap) 05/11/2030 05/11/2020, 07/10/2017 Zoster Vaccines Completed 05/23/2019, 03/09/2019 Pneumococcal Vaccine: 50+ Years Completed 08/07/2023, 08/03/2021 RSV Patients and Patients Aged 60 years or older Completed 11/11/2023 COVID-19 Vaccine Completed 07/30/2024, 04/2022, 08/21/2021, Additional history exists HIB Vaccines Aged Out No longer eligi ble based on patient's age to complete this topic HPV Vaccines Aged Out No longer eligi ble based on patient's age to complete this topic Hepatitis A Vaccines Aged Out No long er eligible based on patient's age to complete this topic Hepatitis B Vaccines Aged Out No long er eligible based on patient's age to complete this topic IPV Vaccines Aged Out No longer eligi ble based on patient's age to complete this topic Meningococcal B Vaccine Aged Out No l onger eligible based on patient's age to complete this topic Meningococcal Vaccine Aged Out No aretha tamica eligible based on patient's age to complete this topic RSV under 20 months Aged Out No longe r eligible based on patient's age to complete this topic Rotavirus Vaccines Aged Out No longer eligible based on patient's age to complete this topic Procedures Procedure Name Priority Date/Time Associated Diagnosis Comments PROPHYLAXIS - ADULT Routine 12/04/2024 8 :00 AM EST Dental calculus PERIODIC ORAL EVALUATION - ESTABLISHED PATIENT Routine 12/04/2024 8:00 AM EST FECAL GLOBIN BY IMMUNOCHEMISTRY Routine 10/20/2024 12:00 AM EST LIPID PANEL, STANDARD Routine 08/25/2024 10:30 AM EST Essential hypertension Gout, unspecified cause, unspecified chronicity, unspecified site Coronary artery disease involving nulato heart without angina pectoris, unspecified vessel or lesion type BITEWINGS - 4 RADIOGRAPHIC IMAGES Routine 06/01/2024 1:00 PM EDT HEMOGLOBIN A1C Routine 03/13/2022 9:48 AM EDT HM COLONOSCOPY Routine 02/15/2022 from Last 3 Months or Most Recently Relevant to Health Maintenance Results * Fecal Globin by Immunochemistry (10/20/2024 12:00 AM EST) Fecal Globin By Immunochemistry SEE NOTE [facility] Comment: FECAL GLOBIN BY IMMUNOCHEMISTRY Micro Number: [id number] Test Status: Final Specimen Source: Insure (tm) fobt test card Specimen Quality: Inadequate Fecal Globin: Test not performed. Improper collection of the sample by patient. 10/20/2024 10/26/2024 7:0 8 AM EST Narrative [facility] - 10/26/2024 7:11 AM EST FASTING: UNKNOWN us Myrna Bennett NP LAB BODY FLUIDS AND STOOLS ORDER JUSTIN Final Result [facility] [address], [place] [address] [facility] [address] [place] [address] * Lipid Panel, Standard (08/25/2024 10:30 AM EST) Triglycerides 51 <150 mg/dL [facility] Comment:Desirable Triglyceri de: less than 150 mg/dLBorderline High Triglyceride 150-199 mg/dLHigh Triglyceride: 200-499 mg/dLVery High Triglyceride: greater than or equal to 5OO mg/dL Cholesterol 131 <200 mg/dL [facility] Comment:Desirable Cholestero l: less than 200 mg/dLBorderline High Cholesterol: 200-239 mg/dLHigh Cholesterol: greater than 239 mg/dL LDL Cholesterol Calculated 68 <100 mg/dL [facility] Comment:Desirable LDL: less than 100 mg/dLNear Optimal/Above Optimal LDL: 110- 129 mg/dLBorderline High LDL: 130-159 mg/dLHigh LDL: 160-189 mg/dLVery High LDL: greater than or equal to 190 mg/dL HDL Cholesterol 53 >40 mg/dL [facility] Comment:Desirable HDL: great er than 40 mg/dL Note: This HDL assay may give artificially low results in patients with liver disease. Blood Venous blood specimen / Unknown 08/25/2024 10:30 AM EST 08/25/2024 10:30 AM EST us Emmanuel Menjivar MD LAB BLOOD ORDERABLES Final Resul t [facility] [address] [place] [phone] * (ABNORMAL) HEMOGLOBIN A1c (03/13/2022 9:48 AM EDT) Hemoglobin A1c 5.7(H) <5.7 % of total [facility] Comment: For someone without known diabetes, a hemoglobin A1c value between 5.7% and 6.4% is consistent with prediabetes and should be confirmed with a follow-up test. For someone with known diabetes, a value <7% indicates that their diabetes is well controlled. A1c targets should be individualized based on duration of diabetes, age, comorbid conditions, and other considerations. This assay result is consistent with an increased risk of diabetes. Currently, no consensus exists regarding use of hemoglobin A1c for diagnosis of diabetes for children. 03/13/2022 9:48 AM EDT us Emmanuel Name LAB BLOOD ORDERABLES Final Resul t [facility] [address] * Hm Colonoscopy (02/15/2022) Colonoscopy performed Historical Provider HEALTH MAINTENANCE Final Result from Last 3 Months or Most Recently Relevant to Health Maintenance Insurance [facility] C3 HSN FULL DENTAL-[facility] MEDICAID STAND ADULT Care Teams Chaser Helper Relationship Specialty Start Date End Date Name, MD Emmanuel [address] [place] [address] [place] [address] PCP - General Family Medicine 05/04/19
--- OUTSIDE RECORDS SUMMARY | 2025-06-11 19:55 | XMS_ITS | Encounter Summary ---
Author Organization [employer] Address [address] [place] [address] [address]t [place] [address] Care Team Providers Care Senior Tax Accountant Name Role Phone Name, Emmanuel SANTA Primary Care Provider [phone] Reason for Visit * Reason Comments Med Refill Encounter Details Date Type Department Care Team ([facility] st Contact Info) Description 06/11/2025 Refill [facility] MEDICINE [address] [place], [place] [phone] Name, MD Emmanuel [address] [place] [address] Social History Tobacco Use Types Packs/Day Years Used Date Smoking Tobacco: Never Passive Smoke Exposure: Never Smokeless Tobacco: Never Alcohol Use Standard [...] documented as of this encounter Care Teams Senior Tax Accountant Relationship Specialty Start Date End Date Name, MD Emmanuel [address] [place] [address] PCP - General Family Medicine 05/04/19 documented as of this encounter
--- OUTSIDE RECORDS SUMMARY | 2025-06-11 19:55 | XMS_ITS | Encounter Summary ---
Author Organization [employer] Address [address] [facility] 7t [place] [address] Care Team Providers Care Cork Compounder Name Role Phone Name, Emmanuel SANTA Primary Care Provider [phone] Reason for Visit * Reason Comments Med Refill Encounter Details Date Type Department Care Team ([facility] st Contact Info) Description 08/31/2023 Refill [facility] MEDICINE [address] [place], [place] [phone] Name, MD Emmanuel [address] [place] [address] Essential hypertension Social History Tobacco Use Types Packs/Day Years [...] as of this encounter Visit Diagnoses Diagnosis Essential hypertension Unspecified essential hypertension documented in this encounter Additional Health Concerns Assessment Noted Time PHQ-9 Depression Total Score: 0 09/19/20 22 2:14 PM EST documented as of this encounter Care Teams Cork Compounder Relationship Specialty Start Date End Date Name, MD Emmanuel [address] [place] [address] PCP - General Family Medicine 05/04/19 documented as of this encounter
--- OUTSIDE RECORDS SUMMARY | 2025-06-11 19:55 | XMS_ITS | Encounter Summary ---
Author Organization [employer] Address [address] [facility] [address]t [place] [address] Care Team Providers Care Fuel Efficient Automobile Designer Name Role Phone Name, Emmanuel SANTA Primary Care Provider [phone] Reason for Visit * Reason Comments Med Refill Encounter Details Date Type Department Care Team ([facility] st Contact Info) Description 08/05/2023 Refill [facility] MEDICINE [address] [place], [place] [phone] Name, MD Emmanuel [address] [place] [address] Essential hypertension; Coronary artery disease involving reno-sparks coronary artery of re[place]-sparks heart without angina pectoris Social History Tobacco [...] Diagnoses Diagnosis Essential hypertension Unspecified essential hypertension Coronary artery disease involving reno-sparks coronary artery of reno-sparks heart without angina pectoris documented in this encounter Additional Health Concerns Assessment Noted Time PHQ-9 Depression Total Score: 0 09/19/20 22 2:14 PM EST documented as of this encounter Care Teams Fuel Efficient Automobile Designer Relationship Specialty Start Date End Date Name, MD Emmanuel [address] [place] [address] PCP - General Family Medicine 05/04/19 documented as of this encounter
--- OUTSIDE RECORDS SUMMARY | 2025-06-11 19:55 | XMS_ITS | Encounter Summary ---
Author Organization [employer] Address [address] [facility] 7t [place] [address] Care Team Providers Care Ancient Art Curator Name Role Phone Name, Emmanuel SANTA Primary Care Provider [phone] Reason for Visit * Reason Onset Date Comments Med Refill 09/16/2024 Encounter Details Date Type Department Care Team ([facility] st Contact Info) Description 09/16/2024 Telephone [facility] MEDICINE [address] [place], [place] [phone] Name, MD Emmanuel [address] [place] [address] Med Refill Social History Tobacco Use Types [...] Telephone Encounter - Kimberly Jones LPN - 09/16/2024 10:35 AM EST Medication pended to PCP for review. * Telephone Encounter - Yanet Calvert - 09/16/2024 10:28 AM EST TC from pt requesting medication refill. Medications needing refill : predniSONE (Deltasone) 20 MG tablet To be sent to: [facility]/pharmacy #[id number] documented in this encounter Plan of Treatment Not on file documented as of this encounter Visit Diagnoses Not on filedocumented in this encounter Additional Health Concerns Assessment Noted Time PHQ-9 Depression Total Score: 0 11/08/19 24 8:54 AM EST documented as of this encounter Care Teams Ancient Art Curator Relationship Specialty Start Date End Date Name, MD Emmanuel [address] [place] [address] PCP - General Family Medicine 05/04/19 documented as of this encounter
--- OUTSIDE RECORDS SUMMARY | 2025-06-11 19:55 | XMS_ITS | Encounter Summary ---
Author Organization [employer] Address [address] [facility] 7t [place] [address] Care Team Providers Care Cash Applications Manager Name Role Phone Name, Emmanuel SANTA Primary Care Provider [phone] Reason for Visit * Reason Comments Transition Of Care (Tcm) HDF Unscheduled . Encounter Details Date Type Department Care Team (Late st Contact Info) Description 06/08/2025 Patient Outreach [facility] MED & PEDS [address] [place], [place] [phone] Name, MD Emmanuel [address] [facility] [place] [place] [address] Transition Of Care (Tcm) (HDF Unscheduled. ) Social History Tobacco Use Types Packs/Day Years [...] as of this encounter Miscellaneous Notes * Significant Event - Oralia Hyatt - 06/08/2025 11:12 AM EDT 06/08/25 1110 Hospital Discharges and Admission for [facility] Type of Visit Hospital Admission Date of Admission/Visit 06/03/25 Date of Discharge 06/06/25 Facility [facility] Diagnosis Peripheral vascular disease, unspecified Disposition Discharged Home Follow-Up Actions Follow-Up Needed Provider appointment Initial Contact Date 05/08/25 CC patient was admitted for surgery. Patient advised to follow up with surgeon. documented in this encounter Plan of Treatment Not on file documented as of this encounter Visit Diagnoses Not on filedocumented in this encounter Additional Health Concerns Assessment Noted Time PHQ-9 Depression Total Score: 0 11/08/19 24 8:54 AM EST documented as of this encounter Care Teams Cash Applications Manager Relationship Specialty Start Date End Date Name, MD Emmanuel [address] [place] [address] PCP - General Family Medicine 05/04/19 documented as of this encounter
--- OUTSIDE RECORDS SUMMARY | 2025-06-11 19:56 | XMS_ITS | Encounter Summary ---
Author Organization [facility] [employer] Address [address] [place] [address] 7t [place] [address] Care Team Providers Care Distillery Supervisor Name Role Phone Name, Emmanuel SANTA Primary Care Provider [phone] Encounter Details Date Type Department Care Team (Latest Contact Info) Description 03/22/2022 Abstract [facility] CONVERSIONS Dental, Provider, DDS Social History Tobacco Use Types Packs/Day Years Used Date Smoking Tobacco: Never Assessed Sex and Gender Information Value Date Recorded Sex Assigned at Male 08/06/2022 10:31 AM EDT Legal Sex Male 10:31 AM EDT Gender Identity Male 08/06/2022 10:31 AM EDT Sexual Orientation Straight 08/06/2022 10 :31 AM EDT documented as of this encounter Plan of Treatment Not on file documented as of this encounter Visit Diagnoses Not on filedocumented in this encounter Care Teams Distillery Supervisor Relationship Specialty Start Date End Date Name, MD Emmanuel [address] [facility] [place] [address] PCP - General Family Medicine 05/04/19 documented as of this encounter
--- OUTSIDE RECORDS SUMMARY | 2025-06-11 19:56 | XMS_ITS | Encounter Summary ---
Author Organization [employer] Address [address] [place] [address] 7t [place] [address] Care Team Providers Care Web Content Manager Name Role Phone Name, Emmanuel SANTA Primary Care Provider [phone] Reason for Visit * Reason Comments Med Refill Encounter Details Date Type Department Care Team ([facility] st Contact Info) Description 03/05/2023 Refill [facility] MEDICINE [address] [place], [place] [phone] Name, MD Emmanuel [address] [place] [address] Social History Tobacco Use Types Packs/Day Years Used Date Smoking Tobacco: Never Smokeless Tobacco: Never Alcohol Use Standard Drinks/Week Comments Never 0 (1 standard drink = 0.6 oz pur e alcohol) Depression Answer Date Recorded Patient Health Questionnaire-9 Score 0 09/19/2022 Depression Answer Date Recorded Patient Health Questionnaire-2 Score 0 09/19/2022 Sex and Gender Information Value Date Recorded Sex Assigned at Male 08/06/2022 10:31 AM EDT Legal Sex Male 10:31 AM EDT Gender Identity Male 08/06/2022 10:31 AM EDT Sexual Orientation Straight 08/06/2022 10 :31 AM EDT COVID-19 Exposure Response Date Recorded In the last 10 days, have yo u been in contact with someone who was confirmed or suspected to have Coronavirus/COVID-19? No / Unsure 02/07/2023 9:20 AM EDT documented as of this encounter Plan of Treatment Not on file documented as of this encounter Visit Diagnoses Not on filedocumented in this encounter Additional Health Concerns Assessment Noted Time PHQ-9 Depression Total Score: 0 09/19/20 22 2:14 PM EST documented as of this encounter Care Teams Web Content Manager Relationship Specialty Start Date End Date Name, MD Emmanuel [address] [place] [address] PCP - General Family Medicine 05/04/19 documented as of this encounter
--- OUTSIDE RECORDS SUMMARY | 2025-06-11 19:56 | XMS_ITS | Encounter Summary ---
Author Organization [employer] Address [address] [place] [address] 7[address] [place] [address] Care Team Providers Care Track Repair Person Name Role Phone Name, Emmanuel SANTA Primary Care Provider [phone] Reason for Visit * Reason Onset Date Comments Med Refill 01/24/2023 Pt walk in reque sting refill for Predisone 20 MG tablet Encounter Details Date Type Department Care Team ([facility] st Contact Info) Description 01/24/2023 Refill [facility] MEDICINE 230 [place], [place] [phone] Name, MD Emmanuel [address] [place] [address] Essential hypertension (Primary Dx); Gout, unspecified cause, unspecified chronicity, unspecified site Social History Tobacco Use Types Packs/Day Years [...] suspected to have Coronavirus/COVID-19? No / Unsure 01/18/2023 9:41 AM EDT documented as of this encounter Miscellaneous Notes * Telephone Encounter - Lazara Ariza RN - 02/01/2023 10:26 AM EDT Carvedilol queued to pcp for approval. documented in this encounter Plan of Treatment Not on file documented as of this encounter Visit Diagnoses Diagnosis Essential hypertension- Primary Unspecified essential hypertension Gout, unspecified cause, unspecified chronicity, unspecified site documented in this encounter Additional Health Concerns Assessment Noted Time PHQ-9 Depression Total Score: 0 09/19/20 22 2:14 PM EST documented as of this encounter Care Teams Track Repair Person Relationship Specialty Start Date End Date Name, MD Emmanuel [address] [place] [address] PCP - General Family Medicine 05/04/19 documented as of this encounter
--- OUTSIDE RECORDS SUMMARY | 2025-06-11 19:56 | XMS_ITS | Encounter Summary ---
Author Organization [employer] Address [address] [place] [address] 7t [place] [address] Care Team Providers Care Software Build Engineer Name Role Phone Name, Emmanuel SANTA Primary Care Provider Reason for Visit * Reason Comments Med Refill Encounter Details Date Type Department Care Team ([facility] st Contact Info) Description 02/09/2023 Refill [facility] MEDICINE 230 [place], [place] [phone] Name, MD Emmanuel [address] [place] [address] Essential hypertension Social History Tobacco Use Types [...] documented as of this encounter Care Teams Software Build Engineer Relationship Specialty Start Date End Date Name, MD Emmanuel [address] [place] [address] PCP - General Family Medicine 05/04/19 documented as of this encounter
--- OUTSIDE RECORDS SUMMARY | 2025-06-11 19:56 | XMS_ITS | Encounter Summary ---
Author Organization [employer] Address [address] [facility] 7t [place] [address] Care Team Providers Care Pretzel Packer Name Role Phone Name, Emmanuel SANTA Primary Care Provider [phone] Encounter Details Date Type Department Care Team (Late st Contact Info) Description 12/07/2022 Abstract [facility] ADULT DENTAL [address] [place] [address] Yaniv Iam, DMD [address] [place] [address] Social History Tobacco Use Types Packs/Day Years [...] suspected to have Coronavirus/COVID-19? No / Unsure 12/10/2022 10:54 AM EST documented as of this encounter Plan of Treatment Not on file documented as of this encounter Visit Diagnoses Not on filedocumented in this encounter Additional Health Concerns Assessment Noted Time PHQ-9 Depression Total Score: 0 09/19/20 22 2:14 PM EST documented as of this encounter Care Teams Pretzel Packer Relationship Specialty Start Date End Date Name, MD Emmanuel [address] [place] [address] PCP - General Family Medicine 05/04/19 documented as of this encounter
--- OUTSIDE RECORDS SUMMARY | 2025-06-11 19:56 | XMS_ITS | Encounter Summary ---
Author Organization [employer] Address [address] [place] [address] 7t [place] [address] Care Team Providers Care Hunting And Fishing Guide Name Role Phone Name, Emmanuel SANTA Primary Care Provider [phone] Encounter Details Date Type Department Care Team (Late st Contact Info) Description 03/18/2023 Abstract [facility] MEDICINE [address] [place], [place] [phone] Name, MD Emmanuel [address] [place] [address] Social History Tobacco Use Types Packs/Day Years [...] documented as of this encounter Care Teams Hunting And Fishing Guide Relationship Specialty Start Date End Date Name, MD Emmanuel [address] [place] [address] PCP - General Family Medicine 05/04/19 documented as of this encounter
--- OUTSIDE RECORDS SUMMARY | 2025-06-11 19:56 | XMS_ITS | Encounter Summary ---
Author Organization [employer] Address [address] [place] [address] 7t [place] [address] Care Team Providers Care Hydraulic Press In Operator Name Role Phone Name, Emmanuel SANTA Primary Care Provider [phone] Encounter Details Date Type Department Care Team (Latest Contact Info) Description 12/14/2020 Abstract [facility] CONVERSIONS Dental, Provider, DDS Social History Tobacco [...] on filedocumented in this encounter Care Teams Hydraulic Press In Operator Relationship Specialty Start Date End Date Name, MD Emmanuel [address] [facility] [place] [address] PCP - General Family Medicine 05/04/19 documented as of this encounter
--- OUTSIDE RECORDS SUMMARY | 2025-06-11 19:56 | XMS_ITS | Encounter Summary ---
Author Organization [employer] Address [address] [place] [address] 7t [place] [address] Care Team Providers Care Pack Room Operator Name Role Phone Name, Emmanuel SANTA Primary Care Provider [phone] Reason for Visit * Reason Comments Med Refill Encounter Details Date Type Department Care Team ([facility] st Contact Info) Description 01/05/2023 Refill [facility] MEDICINE 230 [place] [address] Name, MD Emmanuel [address] [place] [address] Social History Tobacco Use Types Packs/Day Years [...] suspected to have Coronavirus/COVID-19? No / Unsure 01/01/2023 7:49 AM EDT documented as of this encounter Plan of Treatment Not on file documented as of this encounter Visit Diagnoses Not on filedocumented in this encounter Additional Health Concerns Assessment Noted Time PHQ-9 Depression Total Score: 0 09/19/20 22 2:14 PM EST documented as of this encounter Care Teams Pack Room Operator Relationship Specialty Start Date End Date Name, MD Emmanuel [address] [place] [address] PCP - General Family Medicine 05/04/19 documented as of this encounter
== END 2025-06-11 20:16 | disposition left against medical advice (07) ==
PROVIDERS: Registered Nurse Emergency; Emergency Provider Emergency Medicine
DX: R06.02 Shortness of breath (principal); Z53.21 Procedure and treatment not carried out due to patient leaving prior to being seen by health care provider
CPT/HCPCS: 36415; 71046; 80053; 83880; 84484; 85025; 85610; 99281; 99283

== ENCOUNTER → 2025-06-11 17:13 | Outpatient (BNV) | payer MEDICAID, SELFPAY ==
[2023-01-17 08:09] VITALS: BP 108/70; BP 112/76; BP 118/70; BMI 34.0
== END ==
PROVIDERS: Visit Provider Radiology Diagnostic Radiology
DX: R06.00 Dyspnea, unspecified (principal)
CPT/HCPCS: 71046

== ENCOUNTER 2025-06-30 14:18 | Outpatient (REF) | payer MEDICAID, SELFPAY ==
[2023-01-17 08:09] VITALS: BP 108/70; BP 112/76; BP 118/70; BMI 34.0
[2025-06-30 14:37] LABS: MANUAL DIFF FLAG NO
[2025-06-30 14:52] LABS: Hematocrit 30.0 % (42.0-52.0); Hemoglobin 9.4 g/dl (14.0-18.0); Imm Gran Abs Auto 0.02 X10*3/uL (0.00-0.03); Imm Gran Pct Auto 0.4 % (0.0-0.4); Lymphocytes Absolute Auto 1.3 X10*3/uL (1.2-4.9); Mean Corpuscular HGB Conc 31.3 g/dl (31.0-36.0); Mean Corpuscular Hemoglobin 30.6 pg (27.0-33.0); Mean Corpuscular Volume 97.7 fL (80.0-98.0); NRBC Abs Auto 0.000 X10*3/uL (0.0-0.012); NRBC Pct Auto 0.0 /100WBC (0.0-0.2); Platelet Count 269 X10*3/uL (160-400); Red Blood Count 3.07 X10*6/uL (4.60-5.80); White Blood Count 4.8 X10*3/uL (4.8-10.8)
[2025-06-30 15:45] LABS: Alanine Aminotransferase 24 U/L (0-40); Albumin Level 3.9 g/dL (3.5-5.0); Alkaline Phosphatase 136 U/L (39-117); Anion Gap 10 (12-20); Aspartate Amino Transferase 19 U/L (5-37); Blood Urea Nitrogen 16 mg/dL (9-16); Calcium 8.7 mg/dL (8.4-10.2); Carbon Dioxide 27 mmol/L (22-29); Chloride 109 mmol/L (96-108); Cholesterol 127 mg/dL (<200); Estimated Glomerular Filt Rate 60; HDL Cholesterol 46 mg/dL (>40); Potassium 4.4 mmol/L (3.3-5.1); Sodium 142 mmol/L (135-145); Total Protein 6.3 g/dL (6.5-8.0); Triglycerides 150 mg/dL (<150); Uric Acid 5.4 mg/dL (3.4-7.0)
--- OUTSIDE RECORDS SUMMARY | 2025-06-30 17:03 | XMS_ITS | Encounter Summary ---
Author Organization [employer] Address [address] [facility] 7t [place] [address] Care Team Providers Care Tool Carrier Name Role Phone Name, Emmanuel SANTA Primary Care Provider [phone] Encounter Details Date Type Department Care Team (Late Contact Info) Description 12/07/2022 Abstract [facility] ADULT DENTAL [address] [place] [address] Iam Purvis, BROOKLYNN [address] [place] [address] Social History Tobacco Use Types Packs/Day Years [...] as of this encounter Plan of Treatment Upcoming Encounters Date Type Department Care Team (Late Contact Info) Description 07/01/2025 9:00 AM EDT Office Visit [facility] ADULT DENTAL [address] [place] [address] [address] [place] [address] documented as of this encounter Visit Diagnoses Not on filedocumented in this encounter Additional Health Concerns Assessment Noted Time PHQ-9 Depression Total Score: 0 09/19/20 22 2:14 PM EST documented as of this encounter Care Teams Tool Carrier Relationship Specialty Start Date End Date Name, MD Emmanuel [address] [place] [address] PCP - General Family Medicine 05/04/19 documented as of this encounter
--- OUTSIDE RECORDS SUMMARY | 2025-06-30 17:03 | XMS_ITS | Encounter Summary ---
Author Organization [employer] Address [address] [facility] 7t [place] [address] Care Team Providers Care Die Cleaner Name Role Phone Name, Emmanuel SANTA Primary Care Provider Reason for Visit * Reason Onset Date Comments Med Refill 09/16/2024 Encounter Details Date Type Department Care Team ([facility] st Contact Info) Description 09/16/2024 Telephone [facility] MEDICINE 230 [place], [place] [phone] Name, MD Emmanuel [address] [place] [address] Med Refill Social History Tobacco Use Types [...] 20 MG tablet To be sent to: [facility]/pharmacy #[id number] documented in this encounter Plan of Treatment Upcoming Encounters Date Type Department Care Team (Late st Contact Info) Description 07/01/2025 9:00 AM EDT Office Visit [facility] ADULT DENTAL [address] [place] [address] Tete Wolfe [address] [place], [place] [phone] documented as of this encounter Visit Diagnoses Not on filedocumented in this encounter Additional Health Concerns Assessment Noted Time PHQ-9 Depression Total Score: 0 11/08/19 24 8:54 AM EST documented as of this encounter Care Teams Die Cleaner Relationship Specialty Start Date End Date Name, MD Emmanuel [address] [place] [address] PCP - General Family Medicine 05/04/19 documented as of this encounter
--- OUTSIDE RECORDS SUMMARY | 2025-06-30 17:03 | XMS_ITS | Encounter Summary ---
Author Organization [employer] Address [address] [facility] 7t [place] [address] Care Team Providers Care Power Distribution Engineer Name Role Phone Name, Emmanuel SANTA Primary Care Provider [phone] Reason for Visit * Reason Onset Date Comments Hospital Follow-up 06/23/2025 Encounter Details Date Type Department Care Team (Late st Contact Info) Description 06/23/2025 Telephone [facility] MEDICINE 230 [place], [place] [phone] Name, MD Emmanuel 230 [place] [address] Hospital Follow-up Social History Tobacco Use Types Packs/Day Years [...] encounter Miscellaneous Notes * Telephone Encounter - Kaitlyn Childress RN - 06/29/2025 2:50 PM EDT Tc to pt to let them know an HDF cannot be scheduled due to pt had scheduled surgery and should follow up with surgeon for any further questions or complications. [facility] can schedule pt for a regularfollow up. Pt advised we can put in a re-call for a follow up to be scheduled and to completed pending blood work that was ordered in february. Pt advised to make sure they're fasting when they do the blood work. Pt verbalized understanding and agrees with plan. Recall request placed by junior copywriter. * Telephone Encounter - Ferdinand Diego - 06/28/2025 8:48 AM EDT Tc from pt requesting a call back regarding prior message Contact pt at [phone] * Telephone Encounter - Kaitlyn Childress RN - 06/25/2025 4:32 PM EDT Tc to pt to let them know an HDF cannot be scheduled due to pt had scheduled surgery and should follow up with surgeon . [facility] can schedule pt for a regular follow up, no answer, lvm to return call and ask to speak to blue team nurses. * Telephone Encounter - Tonny Campos - 06/25/2025 8:12 AM EDT Noted. Please see previous notes. We do not schedule HDF for surgery. Patient needs to be follow upby surgeon. Please contact at [phone] * Telephone Encounter - Ferdinand Diego - 06/25/2025 8:02 AM EDT TC from pt requesting a call back regarding prior message Contact pt at [phone] * Telephone Encounter - Ferdinand Diego - 06/23/2025 11:04 AM EDT Tc from pt requesting a HDF appt. Hospital: [facility] Date of admission: 06/03 Discharge date: 06/06 Diagnosed: Vascular surgery *Send message to [facility] Coordinators Contact pt at [phone] documented in this encounter Plan of Treatment Upcoming Encounters Date Type Department Care Team (Late st Contact Info) Description 07/01/2025 9:00 AM EDT Office Visit [facility] ADULT DENTAL [address] [place] [address] [address]fe [address] [place] [phone] documented as of this encounter Visit Diagnoses Not on filedocumented in this encounter Additional Health Concerns Assessment Noted Time PHQ-9 Depression Total Score: 0 11/08/19 24 8:54 AM EST documented as of this encounter Care Teams Power Distribution Engineer Relationship Specialty Start Date End Date Name, MD Emmanuel [address] [place] [address] PCP - General Family Medicine 05/04/19 documented as of this encounter
--- OUTSIDE RECORDS SUMMARY | 2025-06-30 17:03 | XMS_ITS | Encounter Summary ---
Author Organization [employer] Address [address] [place] [address] 7t [place] [address] Care Team Providers Care Sap Hana Architect Name Role Phone Name, Emmanuel SANTA Primary Care Provider [phone] Reason for Visit * Reason Comments Med Refill Encounter Details Date Type Department Care Team ([facility] Contact Info) Description 01/05/2023 Refill [facility] MEDICINE 230 [place], [place] [phone] Name, MD Emmanuel [address] [place] [address] Social History Tobacco Use Types Packs/Day Years [...] Upcoming Encounters Date Type Department Care Team ([facility] Contact Info) Description 07/01/2025 9:00 AM EDT Office Visit [facility] ADULT DENTAL [address] [place] [address] Tete Wolfe [address] [place] [address] documented as of this encounter Visit Diagnoses Not on filedocumented in this encounter Additional Health Concerns Assessment Noted Time PHQ-9 Depression Total Score: 0 09/19/20 22 2:14 PM EST documented as of this encounter Care Teams Sap Hana Architect Relationship Specialty Start Date End Date Name, MD Emmanuel [address] [place] [address] PCP - General Family Medicine 05/04/19 documented as of this encounter
--- OUTSIDE RECORDS SUMMARY | 2025-06-30 17:03 | XMS_ITS | Encounter Summary ---
Author Organization [employer] Address [address] [facility] 7t [place] [address] Care Team Providers Care Outbound Supervisor Name Role Phone Name, Emmanuel SANTA Primary Care Provider [phone] Encounter Details Date Type Department Care Team (Latest Contact Info) Description 06/30/2025 Results Follow-Up [facility] MEDICINE [address] [facility] [place] [address] Name, MD Emmanuel [address] [place] [address] CBC auto differential Social History Tobacco Use Types Packs/Day Years [...] your housing situation today? I have juan bartno 11/08/[address] you li [...] Description 07/01/2025 9:00 AM EDT Office Visit [facility] ADULT DENTAL [address] [place] [address] [address]ete Wolfe [address] [place] [address] Scheduled Orders Name Type Priority Associated Diagnoses Orde r Schedule CBC auto differential Lab Routine Mild chronic anemia Expected: 06/30/2025 (Approximate), Expires: 06/30/2026 Iron And Total Iron Binding Capacity Lab Routine Mild chronic anemia Expected: 06/30/2025, Expires: 06/30/2026 Ferritin Lab Routine Mild chronic anemia Expected: 06/30/2025, Expires: 06/30/2026 Vitamin B12/Folate, Serum Panel Lab Routine Mild chronic anemia Expected: 06/30/2025, Expires: 06/30/2026 Fecal Globin By Immunochemistry Lab Routine Mild chronic anemia Expected: 06/30/2025 (Approximate), Expires: 06/30/2026 documented as of this encounter Visit Diagnoses Diagnosis Mild chronic anemia- Primary documented in this encounter Additional Health Concerns Assessment Noted Time PHQ-9 Depression Total Score: 0 11/08/19 8:54 AM EST documented as of this encounter Care Teams Outbound Supervisor Relationship Specialty Start Date End Date Name, MD Emmanuel [address] [place] [address] PCP - General Family Medicine 05/04/19 documented as of this encounter
--- OUTSIDE RECORDS SUMMARY | 2025-06-30 17:03 | XMS_ITS | Encounter Summary ---
Author Organization [employer] Address [address] [facility] 7t [place] [address] Care Team Providers Care Youth Corrections Officer Name Role Phone Name, Emmanuel SANTA Primary Care Provider [phone] Encounter Details Date Type Department Care Team (Late Contact Info) Description 03/18/2023 Abstract [facility] MEDICINE [address] [place], [place] [phone] Name, MD Emmanuel [address] [place] [address] Social History Tobacco Use Types Packs/Day Years [...] Description 07/01/2025 9:00 AM EDT Office Visit [facility] CHC ADULT DENTAL [address] [place], [place] [phone] Tete Wolfe [address] [place] [address] documented as of this encounter Visit Diagnoses Not on filedocumented in this encounter Additional Health Concerns Assessment Noted Time PHQ-9 Depression Total Score: 0 09/19/20 22 2:14 PM EST documented as of this encounter Care Teams Youth Corrections Officer Relationship Specialty Start Date End Date Name, MD Emmanuel [address] [place] [address] PCP - General Family Medicine 05/04/19 documented as of this encounter
--- OUTSIDE RECORDS SUMMARY | 2025-06-30 17:03 | XMS_ITS | Clinical Summary ---
Author Organization [employer] Address [address] [facility] 7t [place] [address] Care Team Providers Care Mixer Foam Rubber Name Role Phone Name, Emmanuel SANTA Primary Care Provider [phone] Allergies No known active allergies Medications nitroglycerin [...] 10/02/20 24 Active losartan (Cozaar) 50 MG tabletIndicatio ns:Essential hypertension Take 1 tablet (50 mg) by mouth Once per day. 30 tablet 11 10/09/19 25 026 Active amLODIPine (Norvasc) 10 MG tabletIndicatio ns:Coronary artery disease involving [place] coronary artery of [place] heart without angina pectoris TAKE 1 TABLET BY MOUTH EVERY DAY IN THE MORNING 90 tablet 1 04/02/20 25 Active carvedilol (Coreg) 3.125 MG tabletIndicatio ns:Essential hypertension TAKE 1 TABLET (3.125 MG) BY MOUTH EVERY 12 (TWELVE) HOURS. 180 tablet 1 04/08/20 25 Active atorvastatin (Lipitor) 80 MG tablet TAKE 1 TABLET BY MOUTH EVERYDAY AT BEDTIME 90 tablet 05/03/20 25 Active Aspirin Low Dose 81 MG EC tablet TAKE 1 TABLET BY MOUTH EVERY DAY 90 tablet 3 06/11/20 25 Active amoxicillin (Amoxil) 500 MG capsuleIndicati ons:Hx of ascending aorta replacement TAKE 4 CAPSULES BY MOUTH ONCE A MONTH 30 TO 60 MINUTES BEFORE DENTAL PROCEDURE 4 capsule 06/28/20 25 Active Aspirin Low Dose 81 MG EC tablet TAKE 1 TABLET BY MOUTH EVERY DAY 90 tablet 3 05/08/20 24 025 Discontinued amoxicillin (Amoxil) 500 MG capsuleIndicati ons:Hx of ascending aorta replacement TAKE 4 CAPSULES BY MOUTH ONCE A MONTH 30 TO 60 MINUTES BEFORE DENTAL PROCEDURE 4 capsule 12/01/19 25 025 Discontinued allopurinol (Zyloprim) 100 MG tabletIndicatio ns:Gout, unspecified cause, unspecified chronicity, unspecified site TAKE 2 TABLETS (200 MG) BY MOUTH IN THE MORNING 180 tablet 1 05/24/20 25 025 Discontinued(S jonny effects) Active Problems Problem Noted Date Diagnosed Date [...] Encounters Date Type Department Care Team Description 06/30/2025 Results Follow-Up [facility] [address] [place] [address] Name, MD Emmanuel CBC auto differential 06/30/2025 Telephone [facility] [address] [place] [address] Sofía Smith [place] august recalls 06/26/2025 Refill [facility] [address] [place] [address] Name, MD Emmanuel Hx of ascending aorta replacement 06/25/2025 Telephone [facility] [address] [place] [address] Name, MD Emmanuel Hospital Follow-up 06/23/2025 Telephone [facility] [address] [facility] [place] [address] NameEmmanuel MD Hospital Follow-up 06/11/2025 Refill [facility] [address] [facility] [place] [address] NameEmmanuel MD 06/08/2025 Patient Outreach [facility] [address] [place], [place] [phone] Name, MD Emmanuel Transition Of Care (Tcm) (HDF Unscheduled. ) 05/22/2025 Refill [facility] [address] [facility] [place] [address] NameEmmanuel MD Gout, unspecified cause, unspecified chronicity, unspecified site 05/01/2025 Refill [facility] [address] [facility] [place] [address] NameEmmanuel MD 04/08/2025 Refill [facility] [address] [place] [address] Myrna Bennett, MATHEUS Essential hypertension 04/02/2025 Refill [facility] [address] [facility] [place] [address] Name, MD Emmanuel Coronary artery disease involving [place] coronary artery of [place] heart without angina pectoris from Last 3 [...] 10/02/2024 9:44 AM EST Plan of Treatment Upcoming Encounters Date Type Department Care Team (Late st Contact Info) Description 07/01/2025 9:00 AM EDT Office Visit [facility]ULT [facility] [address] [place] [address] Tete Wolfe [address] [place], [place] [phone] Health Maintenance Due Date Last Done Comments CT Colonography 1962 FIT DNA/Cologuard 1962 HIV Screening 1962 Sigmoidoscopy 1962 Alcohol/Substance Use Screening 1974 Hepatitis C Screening 01/23/1980 Diabetes: Hemoglobin A1C 03/13/2023 03/13/2022 Dental X-Ray: Full Mouth 10/26/2023 10/25/2020 Depression Screening 11/08/2024 11/08/2023, 11/08/19 SDOH Screening 11/08/2024 11/08/2023 Colonoscopy 02/15/2025 02/15/2022 Colorectal Cancer Screening 02/15/2025 Dental X-Ray: Bitewings 06/02/2025 06/01/2024, 11/15 Dental Oral Exam 06/04/2025 12/04/2024, , 08/23/2023, Additional history exists Dental Prophylaxis 06/04/2025 12/04/2024, 0 06/01/2024, 08/23/2023, Additional history exists FIT 10/20/2025 10/20/2024 FOBT 10/20/2025 10/20/2024 Disability Screening 02/17/2026 02/17/2025 Tobacco Screening 02/17/2026 02/17/2025 DTaP/Tdap/Td Vaccines (3 - Td or Tdap) 05/11/2030 05/11/2020, 07/10/2017 Lipid Panel 06/30/2030 06/30/2025, 08/07, 05/28/2024, Additional history exists Zoster Vaccines Completed 05/23/2019, 03/09/2019 Pneumococcal Vaccine: 50+ Years Completed 08/07/2023, 08/03/2021 RSV Patients and Patients Aged 60 years or older Completed 11/11/2023 COVID-19 Vaccine Completed 07/30/2024, 04/2022, 08/21/2021, Additional history exists Influenza Vaccine Completed 06/18/2025, , 07/28/2023, Additional history exists HIB Vaccines Aged Out [...] Procedure Name Priority Date/Time Associated Diagnosis Comments URIC ACID Routine 06/30/2025 2:35 PM EDT Gout, unspecified cause, unspecified chronicity, unspecified site LIPID PANEL, STANDARD Routine 06/30/2025 2:35 PM EDT Arteriosclerosis of coronary artery COMPREHENSIVE METABOLIC PANEL Routine 06/30/2025 2:35 PM EDT Arteriosclerosis of coronary artery CBC WITH AUTO DIFFERENTIAL Routine 06/30/2025 2:35 PM EDT Mild chronic anemia PROPHYLAXIS - ADULT Routine 12/04/2024 8 :00 AM EST Dental calculus PERIODIC ORAL EVALUATION - ESTABLISHED PATIENT Routine 12/04/2024 8:00 AM EST FECAL GLOBIN BY IMMUNOCHEMISTRY Routine 10/20/2024 12:00 AM EST BITEWINGS - 4 RADIOGRAPHIC IMAGES Routine 06/01/2024 1:00 PM EDT HEMOGLOBIN A1C Routine 03/13/2022 9:48 AM EDT HM COLONOSCOPY Routine 02/15/2022 from Last 3 Months or Most Recently Relevant to Health Maintenance Results * (ABNORMAL) CBC auto differential (06/30/2025 2:35 PM EDT) White Blood Count 4.8 4.8 - 10.8 X10*3/uL [facility] Red Blood Count 3.07(L) 4.60 - 5.80 X10*6/uL [facility] Hemoglobin 9.4(L) 14.0 - 18.0 g/dl [facility] Hematocrit 30.0(L) 42.0 - 52.0 % [facility] Mean Corpuscular Volume 97.7 80.0 - 98.0 fL [facility] Mean Corpuscular Hemoglobin 30.6 27.0 - 33.0 pg [facility] Mean Corpuscular HGB Conc 31.3 31.0 - 36.0 g/dl [facility] Red Cell Distribution Width 14.3 11.0 - 16.0 % [facility] Platelet Count 269 160 - 400 X10*3/uL [facility] Mean Platelet Volume 10.8 9.4 - 12.4 fL [facility] Neutrophils Percent Auto 54.8 45 - 73 % [facility] Imm Gran Pct Auto 0.4 0.0 - 0.4 % [facility] Lymphocytes Percent Auto 26.4 20 - 40 % [facility] Monocytes Percent Auto 13.6(H) 2 - 11 % [facility] Eosinophils Percent Auto 4.4(H) 0 - 4 % [facility] Basophils Percent Auto 0.4 0 - 2 % [facility] NRBC Pct Auto 0.0 0.0 - 0.2 /100WBC [facility] Neutrophils Absolute Auto 2.6 2.0 - 8.3 x10*3/uL [facility] Imm Gran Abs Auto 0.02 0.00 - 0.03 X10*3/uL [facility] Lymphocytes Absolute Auto 1.3 1.2 - 4.9 X10*3/uL [facility] Monocytes Absolute Auto 0.7 0.1 - 1.2 X10*3/uL [facility] Eosinophils Absolute Auto 0.2 0.0 - 0.4 X10*3/uL [facility] Basophils Absolute Auto 0.0 0.0 - 0.2 X10*3/uL [facility] NRBC Abs Auto 0.000 0.0 - 0.012 X10*3/uL [facility] Blood Venous blood specimen / Unknown 06/30/2025 2:35 PM EDT 06/30/2025 2:35 PM EDT us Emmanuel Menjivar MD LAB BLOOD ORDERABLES Final Resul t Performing Organization Address City/[facility]/ZIP Co de Phone Number [facility] [address] [place] [phone] * Uric acid (06/30/2025 2:35 PM EDT) Uric Acid 5.4 3.4 - 7.0 mg/dL [facility] Blood Venous blood specimen / Unknown 06/30/2025 2:35 PM EDT 06/30/2025 2:35 PM EDT us Emmanuel Menjivar MD LAB BLOOD ORDERABLES Final Resul t Performing Organization Address City/[facility]/ZIP Co de Phone Number [facility] [address] [place] [phone] * (ABNORMAL) Lipid Panel, Standard (06/30/2025 2:35 PM EDT) Triglycerides 150(H) <150 mg/dL [facility] Comment:Desirable Triglyceri de: less than 150 mg/dLBorderline High Triglyceride 150-199 mg/dLHigh Triglyceride: 200-499 mg/dLVery High Triglyceride: greater than or equal to 5OO mg/dL Cholesterol 127 <200 mg/dL [facility] Comment:Desirable Cholestero l: less than 200 mg/dLBorderline High Cholesterol: 200-239 mg/dLHigh Cholesterol: greater than 239 mg/dL LDL Cholesterol Calculated 51 <100 mg/dL [facility] Comment:Desirable LDL: less than 100 mg/dLNear Optimal/Above Optimal LDL: 110- 129 mg/dLBorderline High LDL: 130-159 mg/dLHigh LDL: 160-189 mg/dLVery High LDL: greater than or equal to 190 mg/dL HDL Cholesterol 46 >40 mg/dL [facility] Comment:Desirable HDL: great er than 40 mg/dL Note: This HDL assay may give artificially low results in patients with liver disease. Blood Venous blood specimen / Unknown 06/30/2025 2:35 PM EDT 06/30/2025 2:35 PM EDT us Emmanuel Name LAB BLOOD ORDERABLES Final Resul t [facility] [address] [place] [phone] * (ABNORMAL) Comprehensive Metabolic Panel (06/30/2025 2:35 PM EDT) Sodium 142 135 - 145 mmol/L [facility] Potassium 4.4 3.3 - 5.1 mmol/L [facility] Chloride 109(H) 96 - 108 mmol/L [facility] Carbon Dioxide 27 22 - 29 mmol/L [facility] Anion Gap 10(L) 12 - 20 [facility] Urea Nitrogen (BUN) 16 9 - 16 mg/dL [facility] Creatinine, Serum 1.22 0.5 - 1.4 mg/dL [facility] Estimated Glomerular Filt Rate 60 [facility] Comment:Chronic Kidney Disea se: Estimated GFR < 60 mL/min/1.31l6Trggll Kidney Disease: Estimated GFR < 15 mL/min/1.73m2 Glucose 97 60 - 115 mg/dL [facility] Calcium 8.7 8.4 - 10.2 mg/dL [facility] Bilirubin, Total 0.3 0.0 - 1.0 mg/dL [facility] Aspartate Amino Transferase 19 5 - 37 U/L [facility] Alanine Aminotransferase 24 0 - 40 U/L [facility] Total Protein 6.3(L) 6.5 - 8.0 g/dL [facility] Albumin Level 3.9 3.5 - 5.0 g/dL [facility] Alkaline Phosphatase 136(H) 39 - 117 U/L [facility] Blood Venous blood specimen / Unknown 06/30/2025 2:35 PM EDT 06/30/2025 2:35 PM EDT us Emmanuel Menjivar MD LAB BLOOD ORDERABLES Final Resul t Performing Organization Address City/[facility]/ZIP Co de Phone Number [facility] [address] [place] [phone] * Fecal Globin by Immunochemistry (10/20/2024 12:00 AM EST) Fecal Globin By Immunochemistry SEE NOTE [facility]AN [employer] Comment: FECAL GLOBIN BY IMMUNOCHEMISTRY Micro Number: [id number] Test Status: Final Specimen Source: Insure (tm) fobt test card Specimen Quality: Inadequate Fecal Globin: Test not performed. Improper collection of the sample by patient. 10/20/2024 10/26/2024 7:0 8 AM EST Narrative [facility] - 10/26/2024 7:11 AM EST FASTING: UNKNOWN us Myrna Bennett NP LAB BODY FLUIDS AND STOOLS ORDER JUSTIN Final Result Performing Organization Address City/[facility]/ZIP Co de Phone Number [facility] [address], [place] [address] [facility] [place] [employer] [address] [place] [phone] * (ABNORMAL) HEMOGLOBIN A1c (03/13/2022 9:48 AM EDT) Hemoglobin A1c 5.7(H) <5.7 % of total Hgb [facility] Comment: For someone without known [...] diabetes for children. 03/13/2022 9:48 AM EDT Emmanuel Menjivar MD LAB BLOOD ORDERABLES Final Resul t [facility] [address] * Colonoscopy (02/15/2022) Colonoscopy performed Historical Provider HEALTH MAINTENANCE Final Result from Last 3 Months or Most Recently Relevant to Health Maintenance Insurance [facility] C3 [facility] STAND ADULT Care Teams Mixer Foam Rubber Relationship Specialty Start Date End Date Name, MD Emmanuel [address] [place] [address] [place] [address] PCP - General Family Medicine 05/04/19
--- OUTSIDE RECORDS SUMMARY | 2025-06-30 17:03 | XMS_ITS | Encounter Summary ---
Author Organization [employer] Address [address] [place] [address] 7t [place] [address] Care Team Providers Care Head Worker Name Role Phone Name, Emmanuel SANTA Primary Care Provider [phone] Reason for Visit * Reason Onset Date Comments Med Refill 01/24/2023 Pt walk in reque sting refill for Predisone 20 MG tablet Encounter Details Date Type Department Care Team ([facility] st Contact Info) Description 01/24/2023 Refill [facility] [address] [place], [place] [phone] Name, MD Emmanuel [address] [place] [address] Essential hypertension (Primary Dx); Gout, unspecified cause, [...] Description 07/01/2025 9:00 AM EDT Office Visit [facility] ADULT DENTAL [address] [place] [address] Tete Wolfe [address] [place] [address] documented as of this encounter Visit Diagnoses Diagnosis Essential hypertension- Primary Unspecified essential hypertension Gout, unspecified cause, unspecified chronicity, unspecified site documented in this encounter Additional Health Concerns Assessment Noted Time PHQ-9 Depression Total Score: 0 09/19/20 22 2:14 PM EST documented as of this encounter Care Teams Head Worker Relationship Specialty Start Date End Date Name, MD Emmanuel [address] [place] [address] PCP - General Family Medicine 05/04/19 documented as of this encounter
--- OUTSIDE RECORDS SUMMARY | 2025-06-30 17:03 | XMS_ITS | Encounter Summary ---
Author Organization [employer] Address [address] [facility] [address]t h Floor [place] [phone] Care Team Providers Care Wrapper Off Name Role Phone Name, Emmanuel SANTA Primary Care Provider [phone] Encounter Details Date Type Department Care Team (Latest Contact Info) Description 12/14/2020 Abstract [facility] CONVERSIONS Dental, Provider, DDS Social History Tobacco [...] Description 07/01/2025 9:00 AM EDT Office Visit [facility] [address] [place] [address] Tete Wolfe [address] [place] [address] [phone] documented as of this encounter Visit Diagnoses Not on filedocumented in this encounter Care Teams Wrapper Off Relationship Specialty Start Date End Date Name, MD Emmanuel [address] [place] [address] PCP - General Family Medicine 05/04/19 documented as of this encounter
--- OUTSIDE RECORDS SUMMARY | 2025-06-30 17:03 | XMS_ITS | Encounter Summary ---
Author Organization [employer] Address [address] [facility] 7t [place] [address] Care Team Providers Care Rough Patcher Name Role Phone Name, Emmanuel SANTA Primary Care Provider [phone] Reason for Visit * Reason Comments Med Refill Encounter Details Date Type Department Care Team ([facility] st Contact Info) Description 07/16/2024 Refill [facility] [address] [place] [address] Name, MD Emmanuel [address] [place] [address] Coronary artery disease involving [place] coronary artery of [place] heart without angina pectoris Social History Tobacco [...] Description 07/01/2025 9:00 AM EDT Office Visit [facility] [address] [place] [address] Tete Wolfe [address] [place] [address] [phone] documented as of this encounter Visit Diagnoses Diagnosis Coronary artery disease involving [place] coronary artery of [place] heart without angina pectoris documented in this encounter Additional Health Concerns Assessment Noted Time PHQ-9 Depression Total Score: 0 11/08/19 24 8:54 AM EST documented as of this encounter Care Teams Rough Patcher Relationship Specialty Start Date End Date Name, MD Emmanuel [address] [place] [address] PCP - General Family Medicine 05/04/19 documented as of this encounter
--- OUTSIDE RECORDS SUMMARY | 2025-06-30 17:03 | XMS_ITS | Encounter Summary ---
Author Organization [employer] Address [address] [facility] 7t [place] [address] Care Team Providers Care Carton Stenciler Name Role Phone Name, Emmanuel SANTA Primary Care Provider [phone] Reason for Visit * Reason Comments Med Refill Encounter Details Date Type Department Care Team ([facility] st Contact Info) Description 08/05/2023 Refill [facility] MEDICINE [address] [place], [place] [phone] Name, MD Emmanuel [address] [place] [address] Essential hypertension; Coronary artery disease involving [place] coronary artery of [place] heart without angina pectoris Social History Tobacco [...] Description 07/01/2025 9:00 AM EDT Office Visit [facility] [address] [place] [address] Tete Wolfe [address] [place] [address] [phone] documented as of this encounter Visit Diagnoses Diagnosis Essential hypertension Unspecified essential hypertension Coronary artery disease involving [place] coronary artery of [place] heart without angina pectoris documented in this encounter Additional Health Concerns Assessment Noted Time PHQ-9 Depression Total Score: 0 09/19/20 22 2:14 PM EST documented as of this encounter Care Teams Carton Stenciler Relationship Specialty Start Date End Date Name, MD Emmanuel [address] [place] [address] PCP - General Family Medicine 05/04/19 documented as of this encounter
--- OUTSIDE RECORDS SUMMARY | 2025-06-30 17:03 | XMS_ITS | Encounter Summary ---
Author Organization [employer] Address [address] [facility] 7t [place] [address] Care Team Providers Care Managing Consultant Name Role Phone Name, Emmanuel SANTA Primary Care Provider [phone] Reason for Visit * Reason Comments Med Refill Encounter Details Date Type Department Care Team ([facility] st Contact Info) Description 08/31/2023 Refill [facility] MEDICINE [address] [place], [place] [phone] Name, MD Emmanuel [address] [place] [address] Essential hypertension Social History Tobacco Use Types [...] Description 07/01/2025 9:00 AM EDT Office Visit [facility] ADULT DENTAL [address] [place] [address] Tete Wolfe [address] [place] [phone] documented as of this encounter Visit Diagnoses Diagnosis Essential hypertension Unspecified essential hypertension documented in this encounter Additional Health Concerns Assessment Noted Time PHQ-9 Depression Total Score: 0 09/19/20 22 2:14 PM EST documented as of this encounter Care Teams Managing Consultant Relationship Specialty Start Date End Date Name, MD Emmanuel [address] [place] [address] PCP - General Family Medicine 05/04/19 documented as of this encounter
--- OUTSIDE RECORDS SUMMARY | 2025-06-30 17:03 | XMS_ITS | Encounter Summary ---
Author Organization [employer] Address [address] [place] [address] 7t [place] [address] Care Team Providers Care Grinding Room Supervisor Name Role Phone Name, Emmanuel SANTA Primary Care Provider [phone] Reason for Visit * Reason Comments Med Refill Encounter Details Date Type Department Care Team ([facility] Contact Info) Description 03/05/2023 Refill [facility] MEDICINE [address] [place], [place] [phone] Name, MD Emmanuel [address] [place] [address] Social History Tobacco Use Types Packs/Day Years [...] Upcoming Encounters Date Type Department Care Team ([facility] Contact Info) Description 07/01/2025 9:00 AM EDT Office Visit [facility] [address] [place] [address] Tete Wolfe [address] [place] [address] documented as of this encounter Visit Diagnoses Not on filedocumented in this encounter Additional Health Concerns Assessment Noted Time PHQ-9 Depression Total Score: 0 09/19/20 22 2:14 PM EST documented as of this encounter Care Teams Grinding Room Supervisor Relationship Specialty Start Date End Date Name, MD Emmanule [address] [place] [address] PCP - General Family Medicine 05/04/19 documented as of this encounter
--- OUTSIDE RECORDS SUMMARY | 2025-06-30 17:03 | XMS_ITS | Encounter Summary ---
Author Organization [employer] Address [address] [facility] 7t [place] [address] Care Team Providers Care Surgery Technician Name Role Phone Name, Emmanuel SANTA Primary Care Provider [phone] Reason for Visit * Reason Comments Med Refill Encounter Details Date Type Department Care Team ([facility] st Contact Info) Description 06/26/2025 Refill [facility] MEDICINE [address] [place], [place] [phone] Name, MD Emmanuel [address] [place] [address] Hx of ascending aorta replacement Social History Tobacco Use Types Packs/Day Years [...] Description 07/01/2025 9:00 AM EDT Office Visit [facility] AD[facility] [address] [place] [address] Tete Wolfe [address] [place] [address] [phone] documented as of this encounter Visit Diagnoses Diagnosis Hx of ascending aorta replacement documented in this encounter Additional Health Concerns Assessment Noted Time PHQ-9 Depression Total Score: 0 11/08/19 24 8:54 AM EST documented as of this encounter Care Teams Surgery Technician Relationship Specialty Start Date End Date Name, MD Emmanuel [address] [place] [address] PCP - General Family Medicine 05/04/19 documented as of this encounter
--- OUTSIDE RECORDS SUMMARY | 2025-06-30 17:03 | XMS_ITS | Encounter Summary ---
Author Organization [employer] Address [address] [place] [address] [address] [place] [address] Care Team Providers Care Plc Engineer Name Role Phone Name, Emmanuel SANTA Primary Care Provider Reason for Visit * Reason Comments Med Refill Encounter Details Date Type Department Care Team (Late Contact Info) Description 02/09/2023 Refill [facility] MEDICINE [address] [place], [place] [phone] Name, MD Emmanuel [address] [place] [address] Essential hypertension Social History Tobacco Use Types [...] Description 07/01/2025 9:00 AM EDT Office Visit [facility]ULT D[facility] [address] [place] [address] Tete Wolfe [address] [place] [phone] documented as of this encounter Visit Diagnoses Diagnosis Essential hypertension Unspecified essential hypertension documented in this encounter Additional Health Concerns Assessment Noted Time PHQ-9 Depression Total Score: 0 09/19/20 22 2:14 PM EST documented as of this encounter Care Teams Plc Engineer Relationship Specialty Start Date End Date Name, MD Emmanuel [address] [place] [address] PCP - General Family Medicine 05/04/19 documented as of this encounter
--- OUTSIDE RECORDS SUMMARY | 2025-06-30 17:03 | XMS_ITS | Encounter Summary ---
Author Organization [employer] Address [address] [facility] [address] [place] [address] Care Team Providers Care Farm Management Professor Name Role Phone Name, Emmanuel SANTA Primary Care Provider [phone] Reason for Visit * Reason Onset Date Comments august recalls 06/30/2025 Encounter Details Date Type Department Care Team (Late st Contact Info) Description 06/30/2025 Telephone [facility] MEDICINE [address] [facility] [place] [address] Sofía Smith MA august recalls Social History Tobacco Use Types Packs/Day Years [...] encounter Miscellaneous Notes * Telephone Encounter - Sofía Smith MA - 06/30/2025 12:55 PM EDT Telephone call to patient to schedule a recall appointment. No answer, Left voicemail to return call to clinic.. Recall letter sent. Visit type: Follow up Appointment notes: HTN Month due: August With: Name Please schedule appointment above if patient returns call documented in this encounter Plan of Treatment Upcoming Encounters Date Type Department Care Team (Late st Contact Info) Description 07/01/2025 9:00 AM EDT Office Visit [facility] CHC ADULT DENTAL [address] [place] [address] Tete Wolfe [address] [place], [place] [phone] documented as of this encounter Visit Diagnoses Not on filedocumented in this encounter Additional Health Concerns Assessment Noted Time PHQ-9 Depression Total Score: 0 11/08/19 24 8:54 AM EST documented as of this encounter Care Teams Farm Management Professor Relationship Specialty Start Date End Date Name, MD Emmanuel [address] [place] [address] PCP - General Family Medicine 05/04/19 documented as of this encounter
--- OUTSIDE RECORDS SUMMARY | 2025-06-30 17:03 | XMS_ITS | Encounter Summary ---
Author Organization [employer] Address [address] [facility] [address] [place] [address] Care Team Providers Care Biofuels Production Associate Name Role Phone Name, Emmanuel SANTA Primary Care Provider [phone] Reason for Visit * Reason Onset Date Comments Med Refill 08/05/2023 Encounter Details Date Type Department Care Team (Late st Contact Info) Description 08/05/2023 Telephone [facility] MEDICINE [address] [place], [place] [phone] Name, MD Emmanuel [address] [place] [address] Med Refill Social History Tobacco Use Types [...] t he electric, gas, oil or water [employer] threatened to shut off services in your [...] 1,000 mcg [id number] [place], [place] - [address] [place] [address] documented in this encounter Plan of Treatment Upcoming Encounters Date Type Department Care Team (Late st Contact Info) Description 07/01/2025 9:00 AM EDT Office Visit [facility] ADULT DENTAL [address] [place] [address] Tete Wolfe [address] [place] [phone] documented as of this encounter Visit Diagnoses Not on filedocumented in this encounter Additional Health Concerns Assessment Noted Time PHQ-9 Depression Total Score: 0 09/19/20 22 2:14 PM EST documented as of this encounter Care Teams Biofuels Production Associate Relationship Specialty Start Date End Date Name, MD Emmanuel [address] [place] [address] PCP - General Family Medicine 05/04/19 documented as of this encounter
--- OUTSIDE RECORDS SUMMARY | 2025-06-30 17:03 | XMS_ITS | Encounter Summary ---
Author Organization [email or web address] Address [address] [facility] [address] [place] [address] Care Team Providers Care Cnc Maintenance Mechanic Name Role Phone Name, Emmanuel SANTA Primary Care Provider [phone] Reason for Visit * Reason Onset Date Comments Hospital Follow-up 06/25/2025 Encounter Details Date Type Department Care Team (Late st Contact Info) Description 06/25/2025 Telephone [facility] MEDICINE [address] [place], [place] [phone] Name, MD Emmanuel [address] [place] [address] Hospital Follow-up Social History Tobacco Use Types [...] encounter Miscellaneous Notes * Telephone Encounter - Ferdinand Diego - 06/25/2025 9:16 AM EDT Tc from pt stating he had surgery 06/03 , was discharged 06/06 , is requesting to schedule follow up apt Contact pt at [phone] documented in this encounter Plan of Treatment Upcoming Encounters Date Type Department Care Team (Late st Contact Info) Description 07/01/2025 9:00 AM EDT Office Visit [facility] CHC ADULT DENTAL [address] [place] [address] Tete Wolfe [address] [place], [place] [phone] documented as of this encounter Visit Diagnoses Not on filedocumented in this encounter Additional Health Concerns Assessment Noted Time PHQ-9 Depression Total Score: 0 11/08/19 24 8:54 AM EST documented as of this encounter Care Teams Cnc Maintenance Mechanic Relationship Specialty Start Date End Date Name, MD Emmanuel [address] [place] [address] PCP - General Family Medicine 05/04/19 documented as of this encounter
--- OUTSIDE RECORDS SUMMARY | 2025-06-30 17:03 | XMS_ITS | Encounter Summary ---
Author Organization [employer] Address [address] [facility] [address] [place] [address] Care Team Providers Care Spinal Surgeon Name Role Phone Name, Emmanuel SANTA Primary Care Provider Encounter Details Date Type Department Care Team (Latest Contact Info) Description 03/22/[address] [facility] CONVERSIONS Dental, Provider, DDS Social [...] Description 07/01/2025 9:00 AM EDT Office Visit [facility] ADULT DENTAL [address] [place] [address] [address]ete [address]fe [address] [place] [phone] documented as of this encounter Visit Diagnoses Not on filedocumented in this encounter Care Teams Spinal Surgeon Relationship Specialty Start Date End Date Name, MD Emmanuel [address] [place] [address] PCP - General Family Medicine 05/04/19 documented as of this encounter
== END 2025-06-30 14:19 | disposition home or self-care (01) ==
LOC: HO.LAB 14:18
PROVIDERS: PCP Internal Medicine Geriatric Medicine; Visit Provider Internal Medicine Geriatric Medicine
DX: I25.10 Atherosclerotic heart disease of native coronary artery without angina pectoris (principal); M10.9 Gout, unspecified; D64.9 Anemia, unspecified
CPT/HCPCS: 36415; 80053; 80061; 84550; 85025